=== PATIENT | female | born 1955 | race Caucasian/White ===

== ENCOUNTER 2016-10-19 20:51 | Inpatient (IN) | payer OTHER, MEDICARE ==
[~2016-10-19] VITALS: Ht 157.5 cm; Wt 81.8 kg
--- NOTE | 2016-10-19 20:56 | ED GI/GU/ABDOMINAL COMPLAINT ---
History of Present Illness General Chief Complaint: Abdominal Pain/Flank Pain Stated Complaint: BIBA ABD PAIN Source: patient, EMS Exam Limitations: HARD OF HEARING Vital Signs & Intake/Output Vital Signs & Intake/Output Vital Signs Date Time Temp Pulse Resp B/P Pulse O2 O2 Flow FiO2 Ox Delivery Rate 10/21 1641 98.6 108 15 135/78 99 Room Air 10/21 1432 102 18 110/70 10/21 1428 102 110/70 10/21 0805 98.6 98 18 142/80 96 Room Air 10/21 0800 Room Air ED Intake and Output 10/21 0000 10/20 1200 Intake Total 1061 2555 Output Total 400 750 Balance 661 1805 Intake, IV 1041 2555 Intake, Oral 20 Number 1 1 Bowel Movements Output, Urine 400 750 Patient 180 lb Weight (CHARLES MARK,PEDRO) Allergies Coded Allergies: acetaminophen (From Percocet) (UNKNOWN 10/19/16) ciprofloxacin (From Cipro) (UNKNOWN 10/19/16) diphenhydramine (From Benadryl) (UNKNOWN 10/19/16) loratadine (UNKNOWN 10/19/16) nitrofurantoin (UNKNOWN 10/19/16) oxycodone (From Percocet) (UNKNOWN 10/19/16) celecoxib (From Celebrex) (Intermediate, UPSET STOMACH 10/19/16) cimetidine (Intermediate, UPSET STOMACH 10/19/16) clarithromycin (Intermediate, UPSET STOMACH 10/19/16) cocaine (Intermediate, UPSET STOMACH 10/19/16) codeine (Intermediate, UPSET STOMACH 10/19/16) fluconazole (Intermediate, UPSET STOMACH 10/19/16) fluoxetine (From Prozac) (Intermediate, UPSET STOMACH 10/19/16) gabapentin (Intermediate, UPSET STOMACH 10/19/16) lansoprazole (Intermediate, UPSET STOMACH 10/19/16) mycophenolate mofetil (Intermediate, UPSET STOMACH 10/19/16) oxaprozin (From Daypro) (Intermediate, UPSET STOMACH 10/19/16) lorazepam (Mild, GI DISTRESS 10/20/16) Penicillins (UPSET STOMACH 10/19/16) buspirone (10/21/16) ranitidine (UPSET STOMACH 10/19/16) Reconcile Medications Famotidine (Pepcid) 40 MG TABLET 1 TAB PO DAILY GERD (Reported) Fenofibrate 160 MG TABLET 1 TAB PO DAILY HLD (Reported) Fluticasone Propionate 50 MCG/ACTUATION SPRAY.SUSP 2 SPRAY NASB DAILY as per (Reported) Folic Acid 1 MG TABLET 1 TAB PO DAILY SUPPLEMENT (Reported) Glipizide 5 MG TABLET 1 TAB PO BID diabetes (Reported) Insulin Detemir (Levemir Flextouch) 100 UNIT/ML (3 ML) INSULN.PEN 50 UNITS SC QPM DIABETES (Reported) Lisinopril 20 MG TABLET 1 TAB PO DAILY BP (Reported) Metformin HCl (Glucophage) 1,000 MG TABLET 1 TAB PO TID SUGAR (Reported) Triage Nurses Notes Reviewed? yes ? N Is pt currently ? No Onset: Abrupt Duration: day(s): (2) Timing: multiple episodes today Quality/Severity: severe Severity Numbers: 10 Activities at Onset: none Associated Symptoms: abdominal pain, nausea/vomiting HPI: This is a 61-year-old female history of diabetes and deafness who presents by EMS from home for chief complaint of 2 days worth of abdominal pain nausea vomiting and some liquid stool. Denies any chest pain, palpitation, cough or shortness of breath. No fever or chills. She reports not being able to tolerate any oral fluids or food. Past History Travel History Traveled to [place] past 21 day No Medical History Any Pertinent Medical History? see below for history Endocrine: diabetes Surgical History Surgical History: non-contributory Family History Hx Contributory? No Review of Systems Review of Systems Constitutional: Denies: chills, fever. EENTM: Reports: no symptoms. Respiratory: Denies: cough, short of breath, sputum production. Cardiovascular: Denies: chest pain, palpitations. GI: Reports: abdominal pain, nausea, vomiting. Genitourinary: Reports: no symptoms. Musculoskeletal: Reports: no symptoms. Skin: Reports: no symptoms. Neurological/Psychological: Reports: anxiety. Hematologic/Endocrine: Reports: polyuria. Denies: bruising, bleeding, polydipsia. Immunologic/Allergic: Denies: splenectomy. All Other Systems: Reviewed and Negative Physical Exam Physical Exam General Appearance: well developed/nourished, alert, awake, anxious, moderate distress Head: atraumatic, normal appearance Eyes: Bilateral: normal appearance, PERRL, EOMI. Ears, Nose, Throat, Mouth: moist mucous membrane, DEAF Neck: normal inspection, supple, full range of motion Respiratory: normal breath sounds, chest non-tender, no respiratory distress Cardiovascular: regular rate/rhythm Peripheral Pulses: 2+ radial (R), 2+ radial (L) Gastrointestinal: normal bowel sounds, soft, non-tender, NO REBOUND OR GUARDING Back: normal inspection, normal range of motion Extremities: normal range of motion Neurologic/Psych: no motor/sensory deficits, awake, alert, oriented x 3 Skin: intact, normal color, warm/dry Core Measures ACS in differential dx? No Severe Sepsis Present: No Septic Shock Present: No Progress Differential Diagnosis: DKA, HYPERGLYCEMIA, RADHA, ELECTROLYTE DISTURBANCE, SBO, GASTRITIS Plan of Care: Orders Procedure Date/time Status PHOSPHORUS 10/22 0600 Active MAGNESIUM 10/22 0600 Active GLUCOSE 10/22 0600 Active BASIC ELECTROLYTES PLUS BUN&CR 10/22 0600 Active Consistent Carbohydrate 3 10/21 D Active PHOSPHORUS 10/21 1800 Complete MAGNESIUM 10/21 1800 Complete GLUCOSE 10/21 1800 Complete BASIC ELECTROLYTES PLUS BUN&CR 10/21 1800 Complete Teach/Educate 10/21 0835 Active CULTURE,URINE 10/21 0746 Active Current Medications Sig/Herman Start time Last Medication Dose Stop Time Status Admin Acetaminophen 650 MG Q6P PRN 10/19 2330 AC (Tylenol) Heparin Sodium 5,000 UNIT Q8 10/19 2323 AC (Porcine) Laboratory Tests 10/21/16 1850: Anion Gap 14, Estimated GFR > 60, BUN/Creatinine Ratio 7.5, Glucose 226 H, Phosphorus 2.5, Magnesium 1.7 10/21/16 1120: Anion Gap 13, Estimated GFR > 60, BUN/Creatinine Ratio 10.0, Magnesium 1.8, CBC w Diff NO MAN DIFF REQ, RBC 3.86 L, MCV 92.4, MCH 30.7, RDW 13.7, MPV 9.1, Gran % 73.5, Lymphocytes % 17.6 L, Monocytes % 7.7, Eosinophils % 1.1, Basophils % 0.1, Absolute Granulocytes 6.4, Absolute Lymphocytes 1.5, Absolute Monocytes 0.7 H, Absolute Eosinophils 0.1, Absolute Basophils 0, PUBS MCHC 33.2 Microbiology 10/21 0900 URINE ROUT: Urine Culture - RECD IV FLUIDS BOLUS ORDERED, IV ZOFRAN ORDERED.. LABS, MIXED VENOUS ORDERED. REPEAT BOLUS, IV REGLAN ORDERED. POSITIVE ACETON, ELEVATED AG. IV INSULIN DRIP ORDERED. PATIENT ADMITTED TO ICU UNDER HOSPITALIST SERVICE. (CHARLES MARK,[place]) Initial ED EKG: SINUS TACHYCARDIA @112 BPM Rhythm Strip: sinus tachycardia Departure Departure Time of Disposition: 2235 Disposition: STILL A PATIENT Condition: Stable Clinical Impression Primary Impression: DKA (diabetic ketoacidoses) Referrals: ASHLEY TORRES MD (PCP/Family) Departure Forms: Customer Survey General Discharge Information Admission Note Documentation of Exam: Documentation of any treatments & extenuating circumstances including Concerns Regarding Discharge (functional status, medication knowledge or non-compliance, living conditions, etc.) that warrant an admission rather than observation: [IV FLUID RESUSSCITATION, INSULIN DRIP, MONITOR ELECTROLYTES, MONITOR I/O, ENDOCRINOLOGY CONSULTATION] Critical Care Note Critical Care Note Critical Care Time: 75-104 min
[2016-10-19 21:54] LABS: ABSOLUTE BASOPHIL COUNT 0 /CUMM (0.0-0.2); ABSOLUTE EOSINOPHIL COUNT 0 /CUMM (0.0-0.7); ABSOLUTE GRANULOCYTE CT 7.6 /CUMM (1.4-6.5); ABSOLUTE MONOCYTE COUNT 0.2 /CUMM (0.10-0.60); BASOPHIL % 0.2 % (0.0-2.0); EOSINOPHIL % 0.2 % (0-5); GRANULOCYTE % 85.6 % (42.2-75.2); HEMATOCRIT 37.4 % (37-47); MEAN CORPUSCULAR HGB 30.9 PG (27.0-31.0); MEAN CORPUSCULAR HGB CONC 33.5 G/DL (33.0-37.0); MEAN CORPUSCULAR VOLUME 92.2 FL (81.0-99.0); MEAN PLATELET VOLUME 8.7 FL (7.4-10.4); PLATELET COUNT 255 /CUMM (130-400); RBC DISTRIBUTION WIDTH 13.5 % (11.5-14.5); RED BLOOD CELL CT 4.05 /CUMM (4.20-5.40); WHITE BLOOD CELL COUNT 8.9 /CUMM (4.8-10.8)
--- NOTE | 2016-10-19 23:15 | Admission Certification ---
Admission Certification Certification Statement - As attending physician, I certify that at the time of - admission, based on clinical presentation, severity of - symptoms, need for further diagnostic testing and - therapeutic interventions, and risk of adverse outcomes - without in-hospital treatment, in my clinical assessment, - this patient requires an acute hospital stay for a minimum - of two nights or longer. I have also considered psychsocial - factors such as support system, advanced age, financial - issues, cognitive issues, and failed out-patient treatments, - past re-admission history, safety of patient, and lack of - compliance as applicable. Specific rationale supporting this admission is: Diabetic ketoacidosis requiring insulin drip and ICU level of care.
[2016-10-19] MEDS ORDERED: FENOFIBRATE160 M1 PO (23:19)
--- NOTE | 2016-10-19 23:19 | History & Physical ---
DENISE MARK,[facility] 10/19/16 5418: General Information and HPI MD Statement: I have seen and personally examined NILA GUZMAN and documented this H&P. The patient is a 61 year old F who presented with a patient stated chief complaint of [N/V dizziness and malaise]. Source of Information: patient, family, old records Exam Limitations: clinical condition, poor historian, Pt and are hard of hearing and read lips predominantly for communication. History of Present Illness: This is a 61 yo female with PMH of GERD, hyperlipidemia, T2 DM on insulin and metformin, congenital deafness, depression, chronic abdominal pain, who presents with CC of N/V and generalized malaise starting this AM. Pt is deaf and communicates predominantly through sign language; was in room and he communicates similarly. Pt was appreantly in normal health until this AM when she started having dizziness, nausea and vomiting. She denies any fever,CP, SOB, dysuria, or diarrhea. She endorses, N/V and dizziness. No change in daily routine and pt denies any sick contacts, recent travel, or change in dietary habits. Pt has significant surgical hx of r. breast lump s/p radiation, tumor removal of right hand, carpal tunnel, hx of laparascopy, breast biopsy, cystoscopy, laproscopic gallbladder and a benign l. breast biopsy. Pt has remote hx of smoking, denies any current smoking, no etoh or IVDA. Allergies/Medications Allergies: Coded Allergies: acetaminophen (From Percocet) (UNKNOWN 10/19/16) ciprofloxacin (From Cipro) (UNKNOWN 10/19/16) diphenhydramine (From Benadryl) (UNKNOWN 10/19/16) loratadine (UNKNOWN 10/19/16) lorazepam (UNKNOWN 10/19/16) nitrofurantoin (UNKNOWN 10/19/16) oxycodone (From Percocet) (UNKNOWN 10/19/16) celecoxib (From Celebrex) (Intermediate, UPSET STOMACH 10/19/16) cimetidine (Intermediate, UPSET STOMACH 10/19/16) clarithromycin (Intermediate, UPSET STOMACH 10/19/16) cocaine (Intermediate, UPSET STOMACH 10/19/16) codeine (Intermediate, UPSET STOMACH 10/19/16) fluconazole (Intermediate, UPSET STOMACH 10/19/16) fluoxetine (From Prozac) (Intermediate, UPSET STOMACH 10/19/16) gabapentin (Intermediate, UPSET STOMACH 10/19/16) lansoprazole (Intermediate, UPSET STOMACH 10/19/16) mycophenolate mofetil (Intermediate, UPSET STOMACH 10/19/16) oxaprozin (From Daypro) (Intermediate, UPSET STOMACH 10/19/16) Penicillins (UPSET STOMACH 10/19/16) ranitidine (UPSET STOMACH 10/19/16) Home Med list Famotidine (Pepcid) 40 MG TABLET 1 TAB PO DAILY GERD (Reported) Fenofibrate 160 MG TABLET 1 TAB PO DAILY HLD (Reported) Folic Acid 1 MG TABLET 1 TAB PO DAILY SUPPLEMENT (Reported) Insulin Detemir (Levemir Flextouch) 100 UNIT/ML (3 ML) INSULN.PEN 50 UNITS SC QPM DIABETES (Reported) Metformin HCl (Glucophage) 1,000 MG TABLET 1 TAB PO TID SUGAR (Reported) Compliance With Home Meds: UNKNOWN Past History Travel History Traveled to [place] past 21 day No Medical History Neurological: deafness EENT: hearing loss Gastrointestinal: chronic abdominal pain Hepatic: s/p cholecystectomy Psychiatric: anxiety, depression Endocrine: diabetes Surgical History Surgical History: breast biopsy, cholecystectomy, cystoscopy, carpal tunnel Past Family/Social History Psychosocial History Smoking Status: Former Smoker ETOH Use: denies use Illicit Drug Use: denies illicit drug use Functional Ability ADLs Independent: dressing, eating, toileting, bathing. Ambulation: independent IADLs Independent: shopping, housework, finances, food prep, telephone, transportation , medication admin. Review of Systems Review of Systems Constitutional: Reports: malaise, weakness. Denies: chills, diaphoresis. EENTM: Reports: no symptoms. Cardiovascular: Denies: chest pain, palpitations. Respiratory: Reports: no symptoms. GI: Reports: nausea, vomiting. Denies: abdominal pain. Genitourinary: Denies: hesitation. Musculoskeletal: Reports: no symptoms. Skin: Reports: no symptoms. Neurological/Psychological: Reports: anxiety. Exam & Diagnostic Data Last 24 Hrs of Vital Signs/I&O Vital Signs Date Time Temp Pulse Resp B/P Pulse O2 O2 Flow FiO2 Ox Delivery Rate 10/19 2320 97.8 115 18 118/66 97 Room Air 10/19 2115 98.4 115 18 124/76 98 Room Air 10/19 2101 Room Air Physical Exam General Appearance Alert, Oriented X3, Cooperative, Mild Distress Skin No Rashes, No Breakdown, No Significant Lesion Neck Supple, No JVD Cardiovascular Regular Rate, Normal S1, Normal S2, No Murmurs Lungs Normal Air Movement Abdomen Soft, No Tenderness Neurological Sensation Intact, Cranial Nerves 3-12 NL Last 24 Hrs of Labs/Luis: Laboratory Tests 10/19/162129: Anion Gap 21 H, Estimated GFR > 60, BUN/Creatinine Ratio 17.5, Glucose 357 H, Calcium 9.2, Total Bilirubin 0.7, AST 25, ALT 33, Alkaline Phosphatase 43, Troponin I < 0.01, Total Protein 7.3, Albumin 4.5, Globulin 2.8, Albumin/ Globulin Ratio 1.6, Lipase 79, CBC w Diff MAN DIFF ORDERED, RBC 4.05 L, MCV 92.2, MCH 30.9, RDW 13.5, MPV 8.7, Gran % 85.6 H, Lymphocytes % 11.3 L, Monocytes % 2.7, Eosinophils % 0.2, Basophils % 0.2, Absolute Granulocytes 7.6 H, Segmented Neutrophils 82 H, Band Neutrophils 2, Absolute Lymphocytes 1.0 L, Lymphocytes 12 L, Monocytes 4, Absolute Monocytes 0.2, Absolute Eosinophils 0, Absolute Basophils 0, Platelet Estimate ADEQUATE, Hypochromic-Microcytic 1+, Anisocytosis 1+, PUBS MCHC 33.5, Acetone Level POSITIVE AT 1:4 DIL 10/19/162124: Bicarbonate Actual 20 L, Mixed VBG pH 7.32, Mixed VBG pCO2 39 L, Mixed VBG O2 Saturation 26 L, Carboxyhemoglobin 1.1 L, O2 Concentration % RA, O2 Delivery Method RA 10/19/162114: Urine Color YEL, Urine Clarity CLEAR, Urine pH 6.0, Ur Specific [place] 1.020, Urine Protein NEG, Urine Ketones 40 H, Urine Nitrite NEG, Urine Bilirubin NEG, Urine Urobilinogen 0.2, Ur Leukocyte Esterase NEG, Ur Microscopic EXAM NOT REQUIRED, Urine Hemoglobin NEG, Urine Glucose >=1000 H 10/19/162057: Hemoglobin A1c Pending Assessment/Plan Assessment: This is a 61 yo female with PMH of T2 DM on insulin and metformin who came in w/ CC of N/V/malaise. She was found to have positive ketones, >1000 glucose in urine, +acetone and blood sugar of 350s; subsequently diagnosed with DKA. She is admitted to ICU for further workup. PLAN: 1. Anion gap metabolic acidosis 2/2 DKA: Pt came in with glucose 357, bicarb 20, and had positive ketones. Her gap measured at 21 on admission. VBG showed pH at 7.32. WBC 8.9 and afebrile. This is her first admission for DKA. She denies any recent sick contacts or recent illness herself. Her symptoms started this AM with N/V and dizziness. She states that she has been compliant with her medication regimen. She initially received 2L bolus in ER. Uclear at present what precipitated the DKA. * Admit to ICU * 1 more L bolus and then NS at 150cc/hr * Insulin drip at 4u/hr * labs q4 * qhr fingerstick * once blood sugar reaches 250 start D51/2NS with KCL at 150cc/hr * currently NPO * Zofran for nausea * Endocrine consult * a1c * cholesterol panel 2. Hyperlipidemia/GERD: Con't home reg. NPO FULLCODE CHEMICAL DVT PPX As Ranked By This Provider Problem List: 1. DKA (diabetic ketoacidoses) Core Measures/Miscellaneous Acute Coronary Syndrome ACS Diagnosis: No Cerebrovascular Accident CVA/TIA Diagnosis: No Congestive Heart Failure CHF Diagnosis: No Venous Thromboembolism VTE Risk Factors: Acute medical illness, Age > 40 VTE Prophylaxis Ordered Inpt: Pharm- Lovenox No Mech VTE prophylaxis d/t: No contraindications No VTE Pharm Prophylaxis d/t: No contraindications VTE Diagnosis: No VTE Type: NONE VTE Confirmed by (Test): NONE Severe Sepsis Severe Sepsis Present: No Septic Shock Septic Shock Present: No Miscellaneous Documentation Attending Case Discussed With: CONRADO POWELL MD Primary Care Physician: ASHLEY TORRES MD Patient sees these Specialists Dr. Hill Level of Patient Care: Critical Care (CRI) STIVEN MARK,MIRNA 10/19/16 3422: Resident Review Statement Resident Statement: examined this patient, discussed with international editorial producer Other Findings: 61-year-old lady with a history significant for congenital deafness, GERD, hyperlipidemia, insulin-dependent diabetes presented to the emergency room today with a chief complaint of nausea, abdominal pain of one days duration. States that has been difficult for her to hold anything down all day and had some bouts of vomiting. Denies missing her insulin dose, has never been admitted for diabetic ketoacidosis in the past. Her computer operations manager is Dr. Hill. Currently she is resting comfortably without any acute distress. Her CBC is benign Urinalysis positive for acetone Chemistry shows sodium 136, potassium of 5.3, chloride 96, bicarbonate 20, BUN 14, creatinine 0.8, anion gap 21, glucose 357, troponin is negative EKG unremarkable Assessment- 1. Diabetic ketoacidosis 2. Anion gap metabolic acidosis 3. History of GERD 4. History of triglyceridemia 5. History of congenital deafness Plan- ICU admit Accu-Cheks every hour Start insulin drip currently running at 4 units an hour ICU bundle every 4 hours Once the blood sugar falls below 250, will add dextrose and potassium to her fluids Endocrine consult Keep nothing by mouth for now IV Zofran for nausea Pain pathway DVT prophylaxis with subcutaneous heparin Full code ANDRE MARK, [facility] 10/20/16 0028: Attending MD Review Statement Attending Statement Attending MD Statement: examined this patient, discuss w/resident/PA/.NET ARCHITECT, agreed w/resident/PA/.NET ARCHITECT, discussed with family Attending Assessment/Plan: 61 yo F with h/o T2DM on insulin, depression, breast cancer s/p radiation and mastectomy, congenital deafness, gastritis, pw 2-day h/o nausea, vomiting and diffuse abdominal discomfort, with inability to anything down. Dizziness+. No sick contacts, denies fever/chills, cough, diarrhea or urinary symptoms. Denies eating outside food. Compliant with her levemir dose at bedtime. She was followed by Dr. Hill many years ago. Limited history obtained with the help of BRIDGET Syed who knows sign language. Vitals: stable except for tachycardia. Exam: AAO, communicates with sign language and lip reading. Tearful that her sugars are high. HEENT: dry mucous membranes, oropharynx clear, no erythema. Neck supple. Chest b/l clear, Heart S1S2 regular, Abd soft, diffuse tenderness, BS+. Extremities no edema. Labs: WBC 8.9, H/H 12.5/37.4, bands 2, Na 136, K 5.3, bicarb 20, AG 21, creat 0.8, glucose 357, trop neg, lipase neg. S. Osmolality pending. UA ketones positive and glucose >1000. S. Acetone positive. VB.32/39/36/20. EKG: Sinus tachycardia. 1. Diabetic ketoacidosis presenting with nausea, vomiting and abdominal discomfort. No obvious source of infection. No pancreatitis. ICU admit, accucheks Q1 hour, NPO, check HbA1c, normal saline 3 L bolus followed by maintenance fluids @ 150/hr, insulin drip titrate based on accucheks, ICU bundle every 4 hours, replete electrolytes magnesium, phosphorus. Once sugars < 250, change IV fluids to D5-1/2NS with KCL. Anti-emetics, IV PPI. Once AG closed and patient able to tolerate PO, will transition to subcut insulin. Endo consult ( discussed with Dr. Hill). Check urine tox screen. Hold metformin. 2. HLD. Continue fenofibrate. Check lipid panel. DVT ppx Hep SC. Full code. TTS > 35 mins
[2016-10-19] MEDS ORDERED: FOLIC ACID1 M1 PO (23:20)
[2016-10-19] MEDS ORDERED: GLUCOPHAGE1000 M1 PO (23:20)
[2016-10-19] MEDS ORDERED: PEPCID40 M1 PO (23:20)
[2016-10-19] MEDS ORDERED: LEVEMIR FL100 UNIT/1 SC (23:21)
[2016-10-20 01:00] VITALS: BP 128/80
--- NOTE | 2016-10-20 07:26 | Cons- CRCU ---
ADELA MARK,[facility] [place] 10/20/16 0726: General Information and HPI Consulting Request Date of Consult: 10/20/16 Source of Information: patient, family, old records Exam Limitations: poor historian, deafness History of Present Illness: 61 y/o F with PMHx of T2DM on insulin, congenital deafness and hypertriglyceridemia who presents with abdominal pain, nausea and vomiting x2 days. Of note patient is deaf and communicates via sign language and lip reading. Limited history is obtained via the help of her who is also deaf and communicates similarly. She denies fevers, chills, URI symptoms, diarrhea or urinary symptoms. She denies sick contacts or changes in dietary habits. She takes metformin 1000 mg PO TID and Levemir 50 units daily and reports compliance with her insulin. On initial presentation, vitals were within normal limits except for tachycardia with HR in the 110s. Physical exam was remarkable for anxiety, dry mucous membranes and diffuse abdominal tenderness. Labs were significant for Na 136, K 5.3, anion gap metabolic acidosis with bicarbonate 20 and anion gap 21 and glucose 357. Urine was positive for ketones, acetone and glucose > 1000. VBG revealed pH 7.32, pCO2 39 and bicarbonate 20, confirming the metabolic acidosis. Allergies/Medications Allergies: Coded Allergies: acetaminophen (From Percocet) (UNKNOWN 10/19/16) ciprofloxacin (From Cipro) (UNKNOWN 10/19/16) diphenhydramine (From Benadryl) (UNKNOWN 10/19/16) loratadine (UNKNOWN 10/19/16) nitrofurantoin (UNKNOWN 10/19/16) oxycodone (From Percocet) (UNKNOWN 10/19/16) celecoxib (From Celebrex) (Intermediate, UPSET STOMACH 10/19/16) cimetidine (Intermediate, UPSET STOMACH 10/19/16) clarithromycin (Intermediate, UPSET STOMACH 10/19/16) cocaine (Intermediate, UPSET STOMACH 10/19/16) codeine (Intermediate, UPSET STOMACH 10/19/16) fluconazole (Intermediate, UPSET STOMACH 10/19/16) fluoxetine (From Prozac) (Intermediate, UPSET STOMACH 10/19/16) gabapentin (Intermediate, UPSET STOMACH 10/19/16) lansoprazole (Intermediate, UPSET STOMACH 10/19/16) mycophenolate mofetil (Intermediate, UPSET STOMACH 10/19/16) oxaprozin (From Daypro) (Intermediate, UPSET STOMACH 10/19/16) lorazepam (Mild, GI DISTRESS 10/20/16) Penicillins (UPSET STOMACH 10/19/16) ranitidine (UPSET STOMACH 10/19/16) Home Med List: Famotidine (Pepcid) 40 MG TABLET 1 TAB PO DAILY GERD (Reported) Fenofibrate 160 MG TABLET 1 TAB PO DAILY HLD (Reported) Folic Acid 1 MG TABLET 1 TAB PO DAILY SUPPLEMENT (Reported) Insulin Detemir (Levemir Flextouch) 100 UNIT/ML (3 ML) INSULN.PEN 50 UNITS SC QPM DIABETES (Reported) Metformin HCl (Glucophage) 1,000 MG TABLET 1 TAB PO TID SUGAR (Reported) Current Medications: Current Medications Sig/Herman Start time Last Medication Dose Route Stop Time Status Admin Acetaminophen 650 MG Q6P PRN 10/19 2330 AC PO Heparin Sodium 5,000 UNIT Q8 10/19 2323 AC (Porcine) SC Insulin Aspart 0 Q4 10/20 1000 AC SC Insulin Detemir 10 UNITS BID 10/20 1000 AC SC Insulin Human Regular 100 UNIT ONCE ONE 10/19 2230 AC 10/19 Sodium Chloride 100 ML IV 10/20 222 2240 Magnesium Sulfate 1 GM ONCE ONE 10/20 0400 DC 10/20 N/A 1 UNIT IV 10/20 0559 0405 Magnesium Sulfate 1 GM ONCE ONE 10/20 0200 DC 10/20 N/A 1 UNIT IV 10/20 0359 0243 Metoclopramide HCl 0 .STK-MED ONE 10/19 2221 DC .ROUTE Metoclopramide HCl 10 MG ONCE ONE 10/19 2215 DC 10/19 IV 10/19 Ondansetron HCl 4 MG Q6P PRN 10/19 2330 AC 10/20 IV 0740 Ondansetron HCl 0 .STK-MED ONE 10/19 2105 DC .ROUTE Ondansetron HCl 4 MG ONCE ONE 10/19 2100 DC 10/19 IV 10/19 2100 2100 Pantoprazole Sodium 40 MG DAILY 10/20 0030 AC IV Potassium Chloride 20 MEQ Q8H 10/20 0615 AC 10/20 Dextrose/Sodium 1,000 ML IV 0837 Chloride Potassium Chloride 40 MEQ Q8H 10/20 0415 DC 10/20 Dextrose/Sodium 1,000 ML IV 0719 Chloride Sodium Chloride 1,000 ML BOLUS ONE 10/19 2330 DC 10/19 IV 10/20 0029 2332 Sodium Chloride 1,000 ML BOLUS ONE 10/19 2330 DC 10/20 IV 10/20 0029 0043 Sodium Chloride 1,000 ML Q6H 10/19 2330 DC 10/20 IV 0045 Sodium Chloride 1,000 ML BOLUS ONE 10/19 2200 DC 10/19 IV 10/19 225 2200 Sodium Chloride 1,000 ML BOLUS ONE 10/19 2100 DC 10/19 IV 10/19 215 2100 Review of Systems Review of Systems Constitutional: Denies: chills, fever. EENTM: Reports: see HPI (congenital deafness). Cardiovascular: Denies: chest pain. Respiratory: Denies: cough. GI: Reports: abdominal pain, nausea, vomiting. Denies: diarrhea. Genitourinary: Reports: no symptoms. Musculoskeletal: Reports: no symptoms. Skin: Reports: no symptoms. Neurological/Psychological: Reports: anxiety. Hematologic/Endocrine: Reports: no symptoms. Immunologic/Allergic: Reports: no symptoms. Past History Travel History Traveled to [place] past 21 day No Medical History Blood Transfusion Hx: No Neurological: deafness EENT: CONGENITAL DEAFNESS Cardiovascular: TRIGLYCERIDEMIA Gastrointestinal: GERD, chronic abdominal pain Hepatic: s/p cholecystectomy Psychiatric: anxiety, depression Endocrine: diabetes Surgical History Surgical History: breast biopsy, cholecystectomy, cystoscopy, carpal tunnel Psychosocial History Where Do You Live? Home Services at Home: HOME PHONE-VIDEO PHONE [phone] [employer] Smoking Status: Former Smoker ETOH Use: denies use Illicit Drug Use: denies illicit drug use Functional Ability ADLs Independent: dressing, eating, toileting, bathing. Ambulation: independent IADLs Independent: shopping, housework, finances, food prep, telephone, transportation , medication admin. Exam & Diagnostic Data Last 24 Hrs of Vital Signs/I&O Vital Signs Date Time Temp Pulse Resp B/P Pulse O2 O2 Flow FiO2 Ox Delivery Rate 10/20 0800 97.7 98 18 122/86 95 Room Air Room Air 10/20 0400 98 Room Air 10/20 0100 98 Room Air 10/20 0100 98.3 116 30 128/80 98 Room Air 10/190 97.8 115 18 118/66 97 Room Air 10/19 2115 98.4 115 18 124/76 98 Room Air 10/19 210 Room Air Intake & Output 10/20 1600 10/20 0800 10/20 0000 Intake Total 2555 2000 Output Total 750 Balance 1805 2000 Intake, IV 2555 1999 Number 1 Bowel Movements Output, Urine 750 Patient 81.788 kg 77.111 kg Weight Physical Exam General Appearance: well developed/nourished, anxious Head: atraumatic, normal appearance Eyes: Bilateral: normal appearance. Ears, Nose, Throat: moist mucus membranes Neck: supple Respiratory: lungs clear Cardiovascular: tachycardia, regular S1 and S2 Gastrointestinal: soft, non-tender, positive bowel sounds Extremities: no edema Neurologic/Psych: awake, alert, oriented x 3 Cranial Nerves: grossly normal Skin: normal color, warm/dry Last 48 Hrs of Labs/Luis: Laboratory Tests 10/20/16 0920: Anion Gap 12, Estimated GFR > 60, Glucose 225 H, Calcium 8.1 L, Phosphorus 2.4 L, Magnesium 1.8, Total Bilirubin 0.5, AST 18, ALT 31, Albumin 3.7 10/20/16 0406: Troponin I Cancelled 10/20/16 0400: Triglycerides 170 H, Cholesterol 151, LDL Cholesterol, Calc 65, HDL Cholesterol 52, Cholesterol/HDL Ratio 3 10/20/16 0400: Anion Gap 11, Estimated GFR > 60, Glucose 194 H, Calcium 7.9 L, Phosphorus 2.7 , Magnesium 1.5 L, Total Bilirubin 0.4, AST 19, ALT 30, Troponin I < 0.01, Albumin 3.6, LISA Antibody Pending 10/20/16 0009: Anion Gap 18 H, Estimated GFR > 60, Glucose 290 H, Calcium 8.3 L, Phosphorus 3.2, Magnesium 1.1 L, Total Bilirubin 0.6, AST 24, ALT 27, Albumin 4.1 10/19/16 2130: Anion Gap 21 H, Estimated GFR > 60, BUN/Creatinine Ratio 17.5, Glucose 357 H, Serum Osmolality 309 H, Calcium 9.2, Total Bilirubin 0.7, AST 25, ALT 33, Alkaline Phosphatase 43, Troponin I < 0.01, Total Protein 7.3, Albumin 4.5, Globulin 2.8, Albumin/Globulin Ratio 1.6, Lipase 79, CBC w Diff MAN DIFF ORDERED , RBC 4.05 L, MCV 92.2, MCH 30.9, RDW 13.5, MPV 8.7, Gran % 85.6 H, Lymphocytes % 11.3 L, Monocytes % 2.7, Eosinophils % 0.2, Basophils % 0.2, Absolute Granulocytes 7.6 H, Segmented Neutrophils 82 H, Band Neutrophils 2, Absolute Lymphocytes 1.0 L, Lymphocytes 12 L, Monocytes 4, Absolute Monocytes 0.2, Absolute Eosinophils 0, Absolute Basophils 0, Platelet Estimate ADEQUATE, Hypochromic-Microcytic 1+, Anisocytosis 1+, PUBS MCHC 33.5, Acetone Level POSITIVE AT 1:4 DIL 10/19/162124: Bicarbonate Actual 20 L, Mixed VBG pH 7.32, Mixed VBG pCO2 39 L, Mixed VBG O2 Saturation 26 L, Carboxyhemoglobin 1.1 L, O2 Concentration % RA, O2 Delivery Method RA 10/19/162114: Urine Color YEL, Urine Clarity CLEAR, Urine pH 6.0, Ur Specific [place] 1.020, Urine Protein NEG, Urine Ketones 40 H, Urine Nitrite NEG, Urine Bilirubin NEG, Urine Urobilinogen 0.2, Ur Leukocyte Esterase NEG, Ur Microscopic EXAM NOT REQUIRED, Urine Hemoglobin NEG, Urine Glucose >=1000 H 10/19/162057: Hemoglobin A1c Pending Diagnostic Data EKG Results Sinus tachycardia Assessment/Plan Impression/Plan: 61 y/o F with PMHx of T2DM on insulin, congenital deafness and hypertriglyceridemia who presents with DKA. Respiratory: Stable. Satting well on room air without shortness of breath. Infectious Disease: Afebrile and without leukocytosis. No obvious source of infection. Viral gastroenteritis is a possibility in the presence of abdominal symptoms. * Check CXR PA/Lateral to rule out pneumonia. * Monitor off antibiotics. Cardiovascular: #HLD: Lipid panel on admission remarkable for elevated triglycerides (170). Total cholesterol, HDL and LDL are within normal limits on admission. * Continue prior to admission fenofibrate. Hematology: H/H within normal limits. No issues. Metabolic: #DKA: Presented with nausea, vomiting and abdominal pain. Treated with insulin drip overnight with closure of anion gap and improvement of glucose to 200s. No obvious trigger identified for the DKA. CT Abdomen/Pelvis W/ IV Contrast unremarkable except for questionable mild wall thickening of the ascending colon. Insulin drip was discontinued and patient was converted to subcutaneous insulin. Patient was initially started on Levemir 10 units BID and Novolog SSI Q4H. Levemir was later increased to 14 units BID and sliding scale was uptitrated as blood sugars remained in the 300s. * Endocrinology following. Appreciate their recs. * Continue 20 mEq of KCl in D51/2 NS @ 125 cc/hr. * GI consulted to rule out intraabdominal pathology. Appreciate their recs. * Continue Levemir 14 units BID and Novolog SSI Q4H as follows: for glucose <150 give no insulin, 151-200 give 4 units, 201-250 give 6 units, 251-300 give 8 units, 301-350 give 10 units and 351-400 give 12 units. * HbA1c pending. * Anti-LISA ordered to evaluate for T1DM. * OK to downgrade to General Medicine. Alimentary: NPO * Advance diet as tolerated. Neurologic: AAO x3. No issues. DVT PPx: HSQ and ALPs CODE: FULL Problem List: 1. DKA (diabetic ketoacidoses) 2. T2DM (type 2 diabetes mellitus) 3. IDDM (insulin dependent diabetes mellitus) 4. Hypertriglyceridemia Consult Acknowledgment - Thank you for your consult request. BELKIS MARK,[facility] 10/20/16 0823: General Information and HPI Consulting Request Date of Consult: 10/20/16 Requested By: Dr. Allison Reason for Consult: DKA, ICU management Source of Information: patient, old records Exam Limitations: poor historian Assessment/Plan Other Findings/Comments: I have personally seen and examined the patient and agree with the resident's assessment and plan as above. Briefly, the patient is a 61-year-old female with a history of type 2 diabetes, history of breast cancer status post right breast radiation and tumor removal, pulmonary nodules, GERD, hyperlipidemia, congenital deafness, chronic abdominal pain, and depression. The patient was admitted last evening with complaints of generalized malaise and worsening abdominal pain. On admission, the patient was found to have significant nausea, vomiting, elevated blood sugar. She was started on an insulin drip for possible DKA. Her anion gap has improved from 21 to 11. She continues to complain of abdominal discomfort and nausea. Impression: 1. Nausea, vomiting and increased abdominal discomfort rule out etiology. 2. Elevated anion gap and blood sugar, now improved. 3. Congenital deafness - the patient communicates by sign language. 4. History of pulmonary nodules, last CT scan was in July 2016. 5. History of reflux disease. 6. History of breast cancer. Plan: * Will switch to subcutaneous insulin as recommended by endocrine. * Continue D5 half normal saline 20 mEq KCl at 125 ML per hour. * Check an anti-lias antibody and hemoglobin A1c. * Check a PA and lateral chest x-ray. * Check a CT scan of the abdomen and pelvis with contrast. * Continue DVT prophylaxis. * Will downgrade to Gen Med once the patient is stable and off the insulin drip. Consult Acknowledgment - Thank you for your consult request.
--- NOTE | 2016-10-20 07:58 | Cons- Endocrinology ---
General Information and HPI Consulting Request Date of Consult: 10/20/16 Requested By: medical team Reason for Consult: Uncontrolled diabetes Source of Information: patient, old records Exam Limitations: deafness History of Present Illness: This 61-year-old woman apparently has a history of diabetes mellitus type 2. She is treated with metformin 1000 mg 3 times a day and Levemir 50 units daily.. She developed nausea vomiting and abdominal discomfort on the day of admission. She eventually came to the emergency room. Her initial labs showed glucose 357 sodium 136 potassium 5.3 CO2 20 anion gap 21 acetone and +1-4. Liver function tests were normal. The patient has been treated with an insulin drip overnight and is presently on 2 units of insulin per hour. Her labs have improved with glucose 194 CO2 22 anion gap normal at 11. However the patient still complains of abdominal discomfort and nausea and vomiting. Allergies/Medications Allergies: Coded Allergies: acetaminophen (From Percocet) (UNKNOWN 01/12/17) ciprofloxacin (From Cipro) (UNKNOWN 01/12/17) diphenhydramine (From Benadryl) (UNKNOWN 01/12/17) loratadine (UNKNOWN 01/12/17) nitrofurantoin (UNKNOWN 01/12/17) oxycodone (From Percocet) (UNKNOWN 01/12/17) rabeprazole (From ACIPHEX) (UNKNOWN 01/12/17) risedronate sodium (From ACTONEL) (UNKNOWN 01/12/17) celecoxib (From Celebrex) (Intermediate, UPSET STOMACH 01/12/17) cimetidine (Intermediate, UPSET STOMACH 01/12/17) clarithromycin (Intermediate, UPSET STOMACH 01/12/17) codeine (Intermediate, UPSET STOMACH 01/12/17) fluconazole (Intermediate, UPSET STOMACH 01/12/17) fluoxetine (From Prozac) (Intermediate, UPSET STOMACH 01/12/17) gabapentin (Intermediate, UPSET STOMACH 01/12/17) lansoprazole (Intermediate, UPSET STOMACH 01/12/17) mycophenolate mofetil (Intermediate, UPSET STOMACH 01/12/17) oxaprozin (From Daypro) (Intermediate, UPSET STOMACH 01/12/17) lorazepam (Mild, GI DISTRESS 01/12/17) Penicillins (UPSET STOMACH 01/12/17) buspirone (UNKNOWN 01/12/17) ranitidine (UPSET STOMACH 01/12/17) Home Med List: Alprazolam (Xanax) 1 MG TABLET 1 TAB PO Q6P PRN anxiety Clotrimazole/Betamethasone Dip (Clotrimazole-Betamethasone Crm) 1 %-0.05 % CREAM..G. 1 BARON TOP AD AFFECTED AREA (Reported) apply to affected area(s) Fenofibrate 160 MG TABLET 1 TAB PO DAILY HLD (Reported) Fluticasone Propionate 50 MCG/ACTUATION SPRAY.SUSP 2 SPRAY NASB DAILY as per (Reported) Insulin Detemir (Levemir) 100 UNIT/ML VIAL 22 UNITS SC BID DM (Reported) Lisinopril 10 MG TABLET 1 TAB PO DAILY BP (Reported) Metformin HCl 1,000 MG TABLET 1 TAB PO BID DM (Reported) Quetiapine Fumarate (Seroquel XR) 50 MG TAB.ER.24H 1 TAB PO QPM MENTAL HEALTH (Reported) Sodium Chloride ([place] Sea) 0.65 % SPRAY 2 SPRAY NENA Q4 Epistaxis Terconazole (Terazol 7) (Unknown Strength) CREAM.APPL (Unknown Dose) VG AD GYNO (Reported) Review of Systems Review of Systems Constitutional: Reports: malaise. Cardiovascular: Denies: chest pain. Respiratory: Denies: short of breath. GI: Reports: abdominal pain, nausea, vomiting. Genitourinary: Denies: dysuria. Skin: Reports: no symptoms. Past History Travel History Traveled to [place] past 21 day No Medical History Blood Transfusion Hx: No Neurological: deafness EENT: CONGENITAL DEAFNESS Cardiovascular: TRIGLYCERIDEMIA Gastrointestinal: GERD, chronic abdominal pain Hepatic: s/p cholecystectomy Psychiatric: anxiety, depression Endocrine: diabetes Surgical History Surgical History: breast biopsy, cholecystectomy, cystoscopy, carpal tunnel Psychosocial History Where Do You Live? Home Services at Home: HOME PHONE-VIDEO PHONE [phone] [employer] Smoking Status: Former Smoker ETOH Use: denies use Illicit Drug Use: denies illicit drug use Functional Ability ADLs Independent: dressing, eating, toileting, bathing. Ambulation: independent IADLs Independent: shopping, housework, finances, food prep, telephone, transportation , medication admin. Exam & Diagnostic Data Last 24 Hrs of Vital Signs/I&O Vital Signs Date Time Temp Pulse Resp B/P Pulse O2 O2 Flow FiO2 Ox Delivery Rate 10/20 0100 98 Room Air 10/20 010 98.3 116 30 128/80 98 Room Air 10/19 2319 97.8 115 18 118/66 97 Room Air 10/19 2115 98.4 115 18 124/76 98 Room Air 10/19 2101 Room Air Intake & Output 10/20 1600 10/20 0800 10/20 0000 Intake Total 1000 1999 Output Total Balance 1000 1999 Intake, IV 1000 1999 Patient 180 lb 170 lb Weight Vital Signs Date Time Temp Pulse Resp B/P Pulse O2 O2 Flow FiO2 Ox Delivery Rate 10/20 010 98 Room Air 10/20 010 98.3 116 30 128/80 98 Room Air 10/19 2319 97.8 115 18 118/66 97 Room Air 10/19 2115 98.4 115 18 124/76 98 Room Air 10/19 2101 Room Air Intake & Output 10/20 1600 10/20 0800 10/20 0000 Intake Total 1000 1999 Output Total Balance 1000 1999 Intake, IV 1000 1999 Patient 180 lb 170 lb Weight Physical Exam General Appearance: alert, awake, anxious Head: normal appearance Eyes: Bilateral: normal appearance. Neck: normal inspection Respiratory: normal breath sounds Cardiovascular: tachycardia Gastrointestinal: normal bowel sounds, soft Extremities: normal inspection Labs/Luis Results: Laboratory Tests 10/20 10/20 10/20 10/20 0406 0400 0400 0009 Chemistry Sodium (137 - 145 mmol/L) 137 136 L Potassium (3.5 - 5.1 mmol/L) 4.3 4.8 Chloride (98 - 107 mmol/L) 104 102 Carbon Dioxide (22 - 30 mmol/L) 22 17 L Anion Gap (5 - 16) 11 18 H BUN (7 - 17 mg/dL) 10 12 Creatinine (0.5 - 1.0 mg/dL) 0.7 0.7 Estimated GFR (>60 ml/min) > 60 > 60 Glucose (65 - 99 mg/dL) 194 H 290 H Calcium (8.4 - 10.2 mg/dL) 7.9 L 8.3 L Phosphorus (2.5 - 4.5 mg/dL) 2.7 3.2 Magnesium (1.6 - 2.3 mg/dL) 1.5 L 1.1 L Total Bilirubin (0.2 - 1.3 mg/dL) 0.4 0.6 AST (14 - 36 U/L) 19 24 ALT (9 - 52 U/L) 30 27 Troponin I (< 0.11 ng/ml) Cancelled < 0.01 Albumin (3.5 - 5.0 g/dL) 3.6 4.1 Triglycerides (<150 mg/dL) 170 H Cholesterol (<200 MG/DL) 151 LDL Cholesterol, Calc (65 - 129 mg/dL) 65 HDL Cholesterol (40 - 60 mg/dL) 52 Cholesterol/HDL Ratio (0.00 - 4.23 %) 3 10/190 5 Blood Gas Bicarbonate Actual (22 - 26 MEQ/L) 20 L Mixed VBG pH (7.31 - 7.41 PH) 7.32 Mixed VBG pCO2 (41 - 51 TORR) 39 L Mixed VBG O2 Saturation (35 - 45 TORR) 26 L Carboxyhemoglobin (1.5 - 5.0 %) 1.1 L O2 Concentration % RA O2 Delivery Method RA Chemistry Sodium (137 - 145 mmol/L) 136 L Potassium (3.5 - 5.1 mmol/L) 5.3 H Chloride (98 - 107 mmol/L) 96 L Carbon Dioxide (22 - 30 mmol/L) 20 L Anion Gap (5 - 16) 21 H BUN (7 - 17 mg/dL) 14 Creatinine (0.5 - 1.0 mg/dL) 0.8 Estimated GFR (>60 ml/min) > 60 BUN/Creatinine Ratio (7 - 25 %) 17.5 Glucose (65 - 99 mg/dL) 357 H Serum Osmolality (285 - 295 MOSM/KG) 309 H Calcium (8.4 - 10.2 mg/dL) 9.2 Total Bilirubin (0.2 - 1.3 mg/dL) 0.7 AST (14 - 36 U/L) 25 ALT (9 - 52 U/L) 33 Alkaline Phosphatase (<127 U/L) 43 Troponin I (< 0.11 ng/ml) < 0.01 Total Protein (6.3 - 8.2 g/dL) 7.3 Albumin (3.5 - 5.0 g/dL) 4.5 Globulin (1.9 - 4.2 gm/dL) 2.8 Albumin/Globulin Ratio (1.1 - 2.2 %) 1.6 Lipase (23 - 300 U/L) 79 Hematology CBC w Diff MAN DIFF ORDERED WBC (4.8 - 10.8 /CUMM) 8.9 RBC (4.20 - 5.40 /CUMM) 4.05 L Hgb (12.0 - 16.0 G/DL) 12.5 Hct (37 - 47 %) 37.4 MCV (81.0 - 99.0 FL) 92.2 MCH (27.0 - 31.0 PG) 30.9 RDW (11.5 - 14.5 %) 13.5 Plt Count (130 - 400 /CUMM) 255 MPV (7.4 - 10.4 FL) 8.7 Gran % (42.2 - 75.2 %) 85.6 H Lymphocytes % (20.5 - 51.1 %) 11.3 L Monocytes % (1.7 - 9.3 %) 2.7 Eosinophils % (0 - 5 %) 0.2 Basophils % (0.0 - 2.0 %) 0.2 Absolute Granulocytes (1.4 - 6.5 /CUMM) 7.6 H Segmented Neutrophils (42.2 - 75.2 %) 82 H Band Neutrophils (0.0 - 5.0 %) 2 Absolute Lymphocytes (1.2 - 3.4 /CUMM) 1.0 L Lymphocytes (20.5 - 51.1 %) 12 L Monocytes (1.7 - 9.3 %) 4 Absolute Monocytes (0.10 - 0.60 /CUMM) 0.2 Absolute Eosinophils (0.0 - 0.7 /CUMM) 0 Absolute Basophils (0.0 - 0.2 /CUMM) 0 Platelet Estimate (ADEQUATE) ADEQUATE Hypochromic-Microcytic 1+ Anisocytosis 1+ PUBS MCHC (33.0 - 37.0 G/DL) 33.5 Toxicology Acetone Level (NEGATIVE) POSITIVE AT 1:4 DIL 10/19 Chemistry Hemoglobin A1c Pending Urines Urine Color (YEL,AMB,STR) YEL Urine Clarity (CLEAR) CLEAR Urine pH (5.0 - 8.0) 6.0 Ur Specific [place] (1.001 - 1.035) 1.020 Urine Protein (NEG,<30 MG/DL) NEG Urine Ketones (NEG) 40 H Urine Nitrite (NEG) NEG Urine Bilirubin (NEG) NEG Urine Urobilinogen (0.1 - 1.0 EU/dl) 0.2 Ur Leukocyte Esterase (NEG) NEG Ur Microscopic EXAM NOT REQUIRED Urine Hemoglobin (NEG) NEG Urine Glucose (N MG/DL) >=1000 H Assessment/Plan Assessment/Plan This 61-year-old woman with a known history of diabetes presents with nausea vomiting and abdominal discomfort. Her sugar was out of control on admission with a high glucose, positive anion gap, and serum acetone positive in the 1-4 dilution. Despite correction of ketosis and improvement in her blood sugar she still has nausea vomiting and abdominal pain. I would recommend that we obtain some imaging of her abdomen at this time since her symptoms have not improved despite the metabolic improvement. The patient at this time can be switched to subcutaneous insulin. We should continue D5 half-normal saline with 20 mEq KCl at 125 mL/h. We can begin Levemir 10 units twice a day the first dose stat. We can also begin sliding scale NovoLog every 4 hours. NovoLog every 4 hours while on IV fluids containing glucose should be less than 150 give no insulin, 151-200 give 4 units NovoLog, to 201-250 give 5 units NovoLog, 251-300 give 6 units NovoLog, 301-350 give 7 units NovoLog, 351-400 give 8 units NovoLog. One hour after the first dose of NovoLog and Levemir we can discontinue the insulin drip. We should measure the patient's anti-LISA antibody and also her hemoglobin A1c Consult Acknowledgment - Thank you for your consult request.
[2016-10-20 08:00] VITALS: BP 122/86
--- NOTE | 2016-10-20 14:44 | CT SCAN REPORT ---
EXAMINATION: CT ABDOMEN AND PELVIS WITH CONTRAST CLINICAL INFORMATION: Abdominal pain, nausea and vomiting. COMPARISON: 09/22/2006 TECHNIQUE: Multidetector volumetric imaging was performed of the abdomen and pelvis before and after the IV administration of 95 mL of Optiray 320 intravenous contrast. Sagittal and coronal reformatted images were obtained on the technologist's workstation. DLP: 780 mGy-cm FINDINGS: LUNG BASES: Linear scarring at the right lung base. LIVER, GALLBLADDER, AND BILIARY TREE: Mild diffuse fatty infiltration of the liver. The gallbladder has been removed. PANCREAS: Unremarkable. SPLEEN: Unremarkable. ADRENAL GLANDS: There is a 1.1 cm nodule of the left adrenal gland which measured 0.7 cm on the previous study. This is indeterminate although given the density measurements, does not represent a lipid-rich adenoma. KIDNEYS AND URETERS: The kidneys are normal in size, shape, and attenuation. No hydronephrosis, hydroureter, or calculi seen. Bilateral perinephric stranding which appears symmetric and is nonspecific. BLADDER: Unremarkable. GASTROINTESTINAL TRACT: Mild wall thickening of the ascending colon which may be accentuated by lack of distention. Otherwise unremarkable with no evidence of obstruction. ABDOMINAL WALL: No significant hernia is appreciated. LYMPH NODES: Normal. VASCULAR: There are atherosclerotic calcifications of the distal abdominal aorta. No aneurysmal dilatation. PELVIC VISCERA: Unremarkable. OSSEOUS STRUCTURES: Unremarkable. IMPRESSION: Questionable mild wall thickening of the ascending colon which may be accentuated by lack of distention. There is a 1.1 cm left adrenal nodule which measured 0.7 cm on the 2006 study. This is stable since the chest CT dated 07/29/2016. There is bilateral perinephric stranding which appears symmetric and is nonspecific. No hydronephrosis. Mild diffuse fatty infiltration of the liver.
[2016-10-20 16:00] VITALS: BP 120/74
--- NOTE | 2016-10-20 22:00 | RADIOLOGY REPORT ---
EXAMINATION: XR CHEST CLINICAL INFORMATION: Diabetic ketoacidosis. COMPARISON: None recent. TECHNIQUE: AP and lateral semierect view of the chest. FINDINGS: The heart is normal in size. There is no evidence of acute pulmonary parenchymal or pleural disease. There is calcific tendinitis involving the right shoulder. IMPRESSION: No acute disease in the chest.
--- NOTE | 2016-10-21 06:56 | PN- Housestaff ---
CANDY MARK,TIFFANIE 10/21/16 0655: Subjective Follow-up For: abdominal pain Subjective: Pt continues to have abdominal pain (sometimes localized to one area - nonspecific, sometimes all over). She was nauseous with dry heaving all night. Zofran did not really help, changed to reglan. Pt has not been taking alprazolam although it was listed on her med rec. She is still not eating consistently, had 0% of her lunch and 50% of her breakfast. IVF has been decreased from 125 ml to 100 ml/hr. She is very sensitive to touch. She reports that she has not slept in 3 days. She complains of her eyes feeling dry and hurting in the corners, feeling like she has to pick something out. Review of Systems Constitutional: Denies: chills, fever. EENTM: Reports: eye pain. Cardiovascular: Denies: chest pain. Respiratory: Denies: cough, short of breath. Gastrointestinal: Reports: abdominal pain, nausea. Denies: bloating, vomiting. Objective Last 24 Hrs of Vital Signs/I&O Vital Signs Date Time Temp Pulse Resp B/P Pulse O2 O2 Flow FiO2 Ox Delivery Rate 10/21 1432 102 18 110/70 10/21 1428 102 110/70 10/21 0805 98.6 98 18 142/80 96 Room Air 10/21 0800 Room Air 10/20 1600 97.8 98 20 120/74 96 Room Air Intake & Output 10/21 1600 10/21 0800 10/21 0000 Intake Total 1417.5 500 55 Output Total 550 900 0 Balance 867.5 -400 55 Intake, IV 967.5 300 35 Intake, Oral 450 200 20 Number 1 Bowel Movements Output, Urine 550 900 0 Patient 81.788 kg Weight Physical Exam General Appearance: Alert, Oriented X3, Cooperative, dry heaving , pt deaf, can read lips Skin: No Significant Lesion HEENT: Atraumatic, no obvious abrasions. Cardiovascular: Regular Rate, Normal S1, Normal S2 Lungs: Clear to Auscultation, Normal Air Movement Abdomen: ?tenderness , pt sensitive to touch Neurological: Normal Speech Extremities: No Edema Current Medications: Current Medications Sig/Herman Start time Last Medication Dose Route Stop Time Status Admin Acetaminophen 650 MG Q6P PRN 10/19 2330 AC PO Alprazolam 1 MG TID PRN 10/21 1130 DC PO 10/28 1129 Alprazolam 1 MG ONCE ONE 10/21 0130 DC 10/21 PO 10/21 0131 0231 Alprazolam 1 MG FOUR TIMES A DAY 10/20 1800 CAN PO 10/27 1759 Fenofibrate 145 MG DAILY 10/20 1818 AC 10/21 PO 0915 Fluticasone 2 SPRAY DAILY 10/21 1324 AC 10/21 Propionate NENA 1427 Heparin Sodium 5,000 UNIT Q8 10/19 2323 AC (Porcine) SC Insulin Aspart 0 Q4 10/20 1000 AC 10/21 SC 1422 Insulin Detemir 14 UNITS BID 10/20 2200 AC 10/21 SC 0915 Lisinopril 20 MG DAILY 10/21 1325 AC 10/21 PO 1428 Lorazepam 1 MG Q4P PRN 10/20 1700 DC 10/21 IV 0752 Magnesium Oxide 400 MG ONE ONE 10/20 1630 DC PO 10/20 1631 Melatonin 5 MG AT BEDTIME 10/21 2200 AC PO Metoclopramide HCl 10 MG Q6P PRN 10/21 1445 AC IV Ondansetron HCl 4 MG .STK-MED ONE 10/20 2047 DC IM 10/20 2048 Ondansetron HCl 4 MG Q6P PRN 10/19 2330 DC 10/21 IV 1030 Pantoprazole Sodium 40 MG DAILY 10/20 0030 AC 10/21 IV 0915 Patient Medication 1 ED .STK-MED ONE 10/21 1416 DC Teaching ED 10/21 1417 Phosphate 250 MG ONCE ONE 10/20 1645 DC PO 10/20 1646 Potassium Chloride 20 MEQ Q8H 10/20 0615 AC 10/21 Dextrose/Sodium 1,000 ML IV 1032 Chloride Trimethobenzamide HCl 200 MG 4 TIMES/DAY PRN 10/20 1455 AC IM Last 24 Hrs of Lab/Luis Results Last 24 Hrs of Labs/Mics: Laboratory Tests 10/21/16 1120: Anion Gap 13, Estimated GFR > 60, BUN/Creatinine Ratio 10.0, Magnesium 1.8, CBC w Diff NO MAN DIFF REQ, RBC 3.86 L, MCV 92.4, MCH 30.7, RDW 13.7, MPV 9.1, Gran % 73.5, Lymphocytes % 17.6 L, Monocytes % 7.7, Eosinophils % 1.1, Basophils % 0.1, Absolute Granulocytes 6.4, Absolute Lymphocytes 1.5, Absolute Monocytes 0.7 H, Absolute Eosinophils 0.1, Absolute Basophils 0, PUBS MCHC 33.2 Microbiology 10/21 0900 URINE ROUT: Urine Culture - RECD Assessment/Plan Assessment: 61 y/o F with PMHx of T2DM on insulin, congenital deafness and hypertriglyceridemia who presents with abdominal pain, nausea and vomiting x2 days. Pt was admitted to ICU for insulin drip, subsequently transferred to for persistent abdominal pain despite closed AG, and better controlled sugar. Problem List: # DKA # Viral gastroenteritis vs Gastroparesis vs gastric ulcer - Presented with nausea, vomiting and abdominal pain. Came in with glucose 357, bicarb 20, and had positive ketones. Her gap measured at 21 on admission. VBG showed pH at 7.32. WBC 8.9 and afebrile.Treated with insulin drip overnight with closure of anion gap and improvement of glucose to 200s. Insulin drip was discontinued and patient was converted to subcutaneous insulin. - No obvious trigger identified for the DKA. - CT Abdomen/Pelvis W/ IV Contrast unremarkable except for questionable mild wall thickening of the ascending colon. - HbA1c: 10.6 * Endocrinology following. Appreciate their recs. * GI consulted to rule out intraabdominal pathology. Appreciate their recs. Inpatient upper endoscopy if diet cannot be tolerated vs outpatient endoscopy and colonoscopy. * Continue 20 mEq of KCl in D51/2 NS @ 100 cc/hr. * Continue IV protonix (home famotidine 40 mg) * IV reglan for nausea * Anti-LISA ordered to evaluate for T1DM. * Continue Levemir 14 units BID and Novolog SSI Q4H as follows: for glucose <150 give no insulin, 151-200 give 4 units, 201-250 give 6 units, 251-300 give 8 units, 301-350 give 10 units and 351-400 give 12 units. If pt is eating consistently, can change novolog to TID before meals * Hold home glipizide 5 mg bid,metformin 1000mg tid, levemir flex touch 50 units before bedtime. * OK to downgrade to General Medicine. # Sleep * Melatonin 5 mg at bedtime # Continue home meds * Lisinopril 20 mg daily, flonase daily, tricor 145 mg daily Diet: Clear liquid --> Full liquid IVF: 20 mEq of KCl in D51/2 NS @ 100 cc/hr. DVT ppx: Mech and Pharm FULL CODE Problem List: 1. Abdominal pain 2. T2DM (type 2 diabetes mellitus) 3. IDDM (insulin dependent diabetes mellitus) Pain Ratin Pain Location: diffuse Pain Goal: Pain 7 or less Pain Plan: Reglan for nausea Tomorrow's Labs & Rationales: BEP, MG, Phos, glucose for DKA DVT/Prophylaxis: mechanical, pharmacological SU MARK,DARNELL 10/21/16 1614: Attending MD Review Statement Attending Statement Attending MD Statement: examined this patient, discuss w/resident/PA/CORPORATE DEVELOPMENT ASSOCIATE, agreed w/resident/PA/CORPORATE DEVELOPMENT ASSOCIATE, reviewed EMR data (avail), discussed with nursing, discussed with case mgmt, amended to note Attending Assessment/Plan: Patient seen and examined. Resting comfortably and not in acute distress. She was transferred out of intensive care unit yesterday and is currently GEN med hold on the telemetry floor. Blood glucose levels are controlled. Patient however reports nausea and repeated episodes of vomiting. She reports abdominal discomfort however there is no tenderness on exam. CT of the abdomen done yesterday shows mild inflammation of the ascending colon. GI consultation appreciated. Recommendations are to advance diet. If patient tolerates this she will follow-up with the service as an outpatient. If it continues to be symptomatic require endoscopic workup in the hospital. Her hemoglobin A1c level is markedly elevated. It is unclear how compliant she is retired regimen at home. Recommend visiting nurse services once she is discharged.
--- NOTE | 2016-10-21 07:45 | PN- Diabetes ---
Assessment/Plan Assessment: The patient states she feels a little better this morning. She still however has some nausea. She was very agitated during the night. She is on IV fluids with D5 half-normal saline +20 mEq KCl. She is on Levemir 14 units twice a day as well as sliding scale NovoLog every [address] scan of the abdomen done yesterday shows mild wall thickening of the descending colon. This may be due to lack of distention according to the radiologist. There is a small left adrenal nodule. Plan: Suggest continue the IV fluids with D5 half-normal saline at 100 mL per hour. Continue the present insulin coverage. The patient was on Ativan 1 mg 3 times a day as an outpatient. We should continue at least a small dose of Ativan in order to avoid withdrawal symptoms. The patient has a small adrenal nodule. I am not sure if this was ever evaluated before. If not the patient will need evaluation including a work up for pheochromocytoma, aldosterone, renin, and evaluation for [place]'s disease. This could be done as an outpatient. Once the patient is eating better we can reduce the patient's IV fluids to 50 mL an hour and change her NovoLog coverage to before meals only. Subjective Subjective: Still feels nauseated Review of Systems Constitutional: Denies: chills, fever. Respiratory: Denies: short of breath. Gastrointestinal: Reports: abdominal pain, nausea. Genitourinary: Denies: dysuria. Objective Last 24 Hrs of Vital Signs/I&O Vital Signs Date Time Temp Pulse Resp B/P Pulse O2 O2 Flow FiO2 Ox Delivery Rate 10/20 1600 97.8 98 20 120/74 96 Room Air 10/20 0800 97.7 98 18 122/ 95 Room Air Room Air Intake & Output 10/21 0000 10/20 1600 Intake Total 55 1006 Output Total 300 0 400 Balance -300 55 606 Intake, IV 35 1006 Intake, Oral 20 Number 1 Bowel Movements Output, Urine 300 0 400 Vital Signs Date Time Temp Pulse Resp B/P Pulse O2 O2 Flow FiO2 Ox Delivery Rate 10/20 1600 97.8 98 20 120/74 96 Room Air 10/20 0800 97.7 98 18 122/86 95 Room Air Room Air Intake & Output 10/21 0700 10/21 0000 10/20 1600 Intake Total 55 1006 Output Total 300 0 400 Balance -300 55 606 Intake, IV 35 1006 Intake, Oral 20 Number 1 Bowel Movements Output, Urine 300 0 400 Physical Exam General Appearance: alert, awake, anxious Head: normal appearance Neck: normal inspection Respiratory: normal breath sounds Cardiovascular: regular rate/rhythm Abdomen: soft, epigastric tenderness Extremities: no edema Current Medications: Current Medications Sig/Herman Start time Last Medication Dose Route Stop Time Status Admin Acetaminophen 650 MG Q6P PRN 10/19 2330 AC PO Alprazolam 1 MG ONCE ONE 10/21 0130 DC 10/21 PO 10/21 0131 0231 Alprazolam 1 MG FOUR TIMES A DAY 10/20 1800 CAN PO 10/27 1759 Fenofibrate 145 MG DAILY 10/20 1818 AC PO Haloperidol 0.2 MG ONCE ONE 10/20 1330 DC IM 10/20 1331 Heparin Sodium 5,000 UNIT Q8 10/19 2323 AC (Porcine) SC Insulin Aspart 0 Q4 10/20 1000 AC 10/21 SC 0230 Insulin Detemir 14 UNITS BID 10/20 2200 AC 10/20 SC 2248 Insulin Detemir 4 UNITS ONCE ONE 10/20 1430 DC 10/20 SC 10/20 1431 1723 Insulin Detemir 10 UNITS BID 10/20 1000 DC 10/20 SC 1035 Insulin Human Regular 100 UNIT ONCE ONE 10/19 2230 DC 10/19 Sodium Chloride 100 ML IV 10/20 1130 2240 Ketorolac 15 MG ONCE ONE 10/20 1330 CAN Tromethamine IV 10/20 1331 Lorazepam 1 MG Q4P PRN 10/20 1700 AC 10/20 IV 2249 Lorazepam 0.5 MG ONCE ONE 10/20 1315 CAN IV 10/20 1316 Magnesium Oxide 400 MG ONE ONE 10/20 1630 DC PO 10/20 1631 Ondansetron HCl 4 MG .STK-MED ONE 10/20 2047 DC IM 10/20 2048 Ondansetron HCl 4 MG Q6P PRN 10/19 2330 AC 10/20 IV 2100 Pantoprazole Sodium 40 MG DAILY 10/20 0030 AC 10/20 IV 1034 Phosphate 250 MG ONCE ONE 10/20 1645 DC PO 10/20 1646 Potassium Chloride 20 MEQ Q8H 10/20 0615 AC 10/20 Dextrose/Sodium 1,000 ML IV 2135 Chloride Potassium Chloride 40 MEQ Q8H 10/20 0415 DC 10/20 Dextrose/Sodium 1,000 ML IV 0719 Chloride Trimethobenzamide HCl 200 MG 4 TIMES/DAY PRN 10/20 1455 AC IM Trimethobenzamide HCl 200 MG 4 TIMES/DAY 10/20 1400 DC IM Findings Pertinent Lab/Luis Results: Laboratory Tests 10/20 0920 Chemistry Sodium (137 - 145 mmol/L) 134 L Potassium (3.5 - 5.1 mmol/L) 4.3 Chloride (98 - 107 mmol/L) 102 Carbon Dioxide (22 - 30 mmol/L) 20 L Anion Gap (5 - 16) 12 BUN (7 - 17 mg/dL) 8 Creatinine (0.5 - 1.0 mg/dL) 0.7 Estimated GFR (>60 ml/min) > 60 Glucose (65 - 99 mg/dL) 225 H Calcium (8.4 - 10.2 mg/dL) 8.1 L Phosphorus (2.5 - 4.5 mg/dL) 2.4 L Magnesium (1.6 - 2.3 mg/dL) 1.8 Total Bilirubin (0.2 - 1.3 mg/dL) 0.5 AST (14 - 36 U/L) 18 ALT (9 - 52 U/L) 31 Albumin (3.5 - 5.0 g/dL) 3.7
[2016-10-21 08:05] VITALS: BP 142/80
--- NOTE | 2016-10-21 10:45 | Cons- Gastroenterology ---
General Information and HPI Consulting Request Date of Consult: 10/21/16 Requested By: ANDRE MARK,CONRADO Reason for Consult: Nausea, vomiting, abdominal pain. Source of Information: patient, old records Exam Limitations: poor historian, language barrier History of Present Illness: Ms. Kang is a 61 year old hearing impaired female with a history of DM who was admitted to the ICU with DKA after she presented to with complaints of diffuse abdominal discomfort and nausea and vomiting for the previous few days. In the ICU she was treated with an insulin drip with closure of her anion gap and she has since been restarted on SC insulin and transferred to telemetry. She has been having bilious vomiting for the past few days associated with vague episgastric discomfort. She has been without any hematemesis and she denies any preceding heartburn or dysphagia. Since transfer to the medical floor she has been advanced to a clear liquid diet, but she had some dry heaving this morning and is now NPO. She has been gvien IV zofran, IV tigan, and IV protonix. She had 2 normal bowel movements yesterday and she has been without any brbpr, melena, diarrhea, or constipation. Allergies/Medications Allergies: Coded Allergies: acetaminophen (From Percocet) (UNKNOWN 10/19/16) ciprofloxacin (From Cipro) (UNKNOWN 10/19/16) diphenhydramine (From Benadryl) (UNKNOWN 10/19/16) loratadine (UNKNOWN 10/19/16) nitrofurantoin (UNKNOWN 10/19/16) oxycodone (From Percocet) (UNKNOWN 10/19/16) celecoxib (From Celebrex) (Intermediate, UPSET STOMACH 10/19/16) cimetidine (Intermediate, UPSET STOMACH 10/19/16) clarithromycin (Intermediate, UPSET STOMACH 10/19/16) cocaine (Intermediate, UPSET STOMACH 10/19/16) codeine (Intermediate, UPSET STOMACH 10/19/16) fluconazole (Intermediate, UPSET STOMACH 10/19/16) fluoxetine (From Prozac) (Intermediate, UPSET STOMACH 10/19/16) gabapentin (Intermediate, UPSET STOMACH 10/19/16) lansoprazole (Intermediate, UPSET STOMACH 10/19/16) mycophenolate mofetil (Intermediate, UPSET STOMACH 10/19/16) oxaprozin (From Daypro) (Intermediate, UPSET STOMACH 10/19/16) lorazepam (Mild, GI DISTRESS 10/20/16) Penicillins (UPSET STOMACH 10/19/16) buspirone (10/21/16) ranitidine (UPSET STOMACH 10/19/16) Home Med List: Alprazolam 1 MG TABLET 1 TAB PO Q6P PRN anxiety (Reported) Famotidine (Pepcid) 40 MG TABLET 1 TAB PO DAILY GERD (Reported) Fenofibrate 160 MG TABLET 1 TAB PO DAILY HLD (Reported) Fluticasone Propionate 50 MCG/ACTUATION SPRAY.SUSP 2 SPRAY NASB DAILY as per (Reported) Folic Acid 1 MG TABLET 1 TAB PO DAILY SUPPLEMENT (Reported) Glipizide 5 MG TABLET 1 TAB PO BID diabetes (Reported) Insulin Aspart, Recombinant (Novolog Flexpen) 100 UNIT/ML INSULN.PEN 0 SC TIDAC diabetes Please take blood sugar insulin 80-150mg/dl-four units 151-200mg/dl-five units 201-250mg/dl-six units 251-300mg/dl-seven units 301-350mg/dl-eight units 351-400mg/dl-nine units >400mg/dl-nine units. call Insulin Detemir (Levemir Flextouch) 100 UNIT/ML (3 ML) INSULN.PEN 50 UNITS SC QPM DIABETES (Reported) Insulin Detemir (Levemir) 100 UNIT/ML VIAL 14 UNITS SC BID DIABETES Lisinopril 20 MG TABLET 1 TAB PO DAILY BP (Reported) Metformin HCl (Glucophage) 1,000 MG TABLET 1 TAB PO TID SUGAR (Reported) Metoclopramide HCl (Reglan) 10 MG TABLET 1 TAB PO TID PRN Nausea 30 minutes before meals and bedtime Ramelteon (Rozerem) 8 MG TABLET 2 TAB PO BEDTIME PRN sleep Current Medications: Current Medications Sig/Herman Start time Last Medication Dose Route Stop Time Status Admin Acetaminophen 650 MG Q6P PRN 10/19 2330 AC PO Alprazolam 1 MG ONCE ONE 10/21 0130 DC 10/21 PO 10/21 0131 0231 Alprazolam 1 MG FOUR TIMES A DAY 10/20 1800 CAN PO 10/27 1759 Fenofibrate 145 MG DAILY 10/20 1818 AC 10/21 PO 0915 Haloperidol 0.2 MG ONCE ONE 10/20 1330 DC IM 10/20 1331 Heparin Sodium 5,000 UNIT Q8 10/19 2323 AC (Porcine) SC Insulin Aspart 0 Q4 10/20 1000 AC 10/21 SC 0751 Insulin Detemir 14 UNITS BID 10/20 2200 AC 10/21 SC 0915 Insulin Detemir 4 UNITS ONCE ONE 10/20 1430 DC 10/20 SC 10/20 1431 1723 Insulin Detemir 10 UNITS BID 10/20 1000 DC 10/20 SC 1035 Insulin Human Regular 100 UNIT ONCE ONE 10/19 2230 DC 10/19 Sodium Chloride 100 ML IV 10/20 1130 2240 Ketorolac 15 MG ONCE ONE 10/20 1330 CAN Tromethamine IV 10/20 1331 Lorazepam 1 MG Q4P PRN 10/20 1700 AC 10/21 IV 0752 Lorazepam 0.5 MG ONCE ONE 10/20 1315 CAN IV 10/20 1316 Magnesium Oxide 400 MG ONE ONE 10/20 1630 DC PO 10/20 1631 Ondansetron HCl 4 MG .STK-MED ONE 10/20 2047 DC IM 10/20 2048 Ondansetron HCl 4 MG Q6P PRN 10/19 2330 AC 10/21 IV 1030 Pantoprazole Sodium 40 MG DAILY 10/20 0030 AC 10/21 IV 0915 Phosphate 250 MG ONCE ONE 10/20 1645 DC PO 10/20 1646 Potassium Chloride 20 MEQ Q8H 10/20 0615 AC 10/21 Dextrose/Sodium 1,000 ML IV 1032 Chloride Trimethobenzamide HCl 200 MG 4 TIMES/DAY PRN 10/20 1455 AC IM Trimethobenzamide HCl 200 MG 4 TIMES/DAY 10/20 1400 DC IM Past History Travel History Traveled to [place] past 21 day No Medical History Blood Transfusion Hx: No Neurological: deafness EENT: CONGENITAL DEAFNESS Cardiovascular: TRIGLYCERIDEMIA Gastrointestinal: GERD, chronic abdominal pain Hepatic: s/p cholecystectomy Psychiatric: anxiety, depression Endocrine: diabetes Surgical History Surgical History: breast biopsy, cholecystectomy, cystoscopy, carpal tunnel Psychosocial History Where Do You Live? Home Services at Home: HOME PHONE-VIDEO PHONE [phone] [employer] Smoking Status: Former Smoker ETOH Use: denies use Illicit Drug Use: denies illicit drug use Functional Ability ADLs Independent: dressing, eating, toileting, bathing. Ambulation: independent IADLs Independent: shopping, housework, finances, food prep, telephone, transportation , medication admin. Review of Systems Review of Systems Constitutional: Reports: malaise, weakness. Denies: diaphoresis, fever. EENTM: Denies: no symptoms. Cardiovascular: Denies: no symptoms. Respiratory: Denies: no symptoms. GI: Reports: see HPI. Genitourinary: Denies: no symptoms. Musculoskeletal: Reports: joint pain. Denies: joint swelling. Skin: Denies: no symptoms. Neurological/Psychological: Reports: tingling. Hematologic/Endocrine: Denies: no symptoms. Immunologic/Allergic: Denies: no symptoms. All Other Systems: Reviewed and Negative Exam & Diagnostic Data Vital Signs and I&O Vital Signs Date Time Temp Pulse Resp B/P Pulse O2 O2 Flow FiO2 Ox Delivery Rate 10/21 0805 98.6 98 18 142/80 96 Room Air 10/21 0800 Room Air 10/20 1600 97.8 98 20 120/74 96 Room Air Intake & Output 10/21 1600 10/21 0400 10/20 1600 10/20 0400 10/19 1600 10/19 0400 Intake Total 962 11 7788 3000 Output Total 900 0 1150 Balance -668 74 5351 3000 Intake, IV 259 60 5790 3000 Intake, Oral 200 20 Number 2 Bowel Movements Output, Urine 900 0 1150 Patient 180 lb Weight Physical Exam General Appearance: well developed/nourished, no apparent distress, alert, comfortable Head: atraumatic, normal appearance Eyes: Bilateral: normal appearance. Ears, Nose, Throat: normal pharynx, normal ENT inspection Neck: normal inspection, supple, full range of motion Respiratory: normal breath sounds, chest non-tender, no respiratory distress Cardiovascular: regular rate/rhythm Gastrointestinal: normal bowel sounds, soft, non-tender Rectal: deferred Back: normal inspection, normal range of motion Extremities: normal inspection, no edema Neurologic/Psych: no motor/sensory deficits, awake, alert, oriented x 3 Skin: intact, normal color, warm/dry Results Pertinent Lab Results: Laboratory Tests 10/20 10/20 10/20 10/20 10/20 0920 0406 0400 0400 0009 Chemistry Sodium (137 - 145 mmol/L) 134 L 137 136 L Potassium (3.5 - 5.1 mmol/L) 4.3 4.3 4.8 Chloride (98 - 107 mmol/L) 102 104 102 Carbon Dioxide (22 - 30 mmol/L) 20 L 22 17 L Anion Gap (5 - 16) 12 11 18 H BUN (7 - 17 mg/dL) 8 10 12 Creatinine (0.5 - 1.0 mg/dL) 0.7 0.7 0.7 Estimated GFR (>60 ml/min) > 60 > 60 > 60 Glucose (65 - 99 mg/dL) 225 H 194 H 290 H Calcium (8.4 - 10.2 mg/dL) 8.1 L 7.9 L 8.3 L Phosphorus (2.5 - 4.5 mg/dL) 2.4 L 2.7 3.2 Magnesium (1.6 - 2.3 mg/dL) 1.8 1.5 L 1.1 L Total Bilirubin (0.2 - 1.3 mg/dL) 0.5 0.4 0.6 AST (14 - 36 U/L) 18 19 24 ALT (9 - 52 U/L) 31 30 27 Troponin I (< 0.11 ng/ml) Cancelled < 0.01 Albumin (3.5 - 5.0 g/dL) 3.7 3.6 4.1 Triglycerides (<150 mg/dL) 170 H Cholesterol (<200 MG/DL) 151 LDL Cholesterol, Calc (65 - 129 mg/dL) 65 HDL Cholesterol (40 - 60 mg/dL) 52 Cholesterol/HDL Ratio (0.00 - 4.23 %) 3 Immunology LISA Antibody Pending 10/19 Blood Gas Bicarbonate Actual (22 - 26 MEQ/L) 20 L Mixed VBG pH (7.31 - 7.41 PH) 7.32 Mixed VBG pCO2 (41 - 51 TORR) 39 L Mixed VBG O2 Saturation (35 - 45 TORR) 26 L Carboxyhemoglobin (1.5 - 5.0 %) 1.1 L O2 Concentration % RA O2 Delivery Method RA Chemistry Sodium (137 - 145 mmol/L) 136 L Potassium (3.5 - 5.1 mmol/L) 5.3 H Chloride (98 - 107 mmol/L) 96 L Carbon Dioxide (22 - 30 mmol/L) 20 L Anion Gap (5 - 16) 21 H BUN (7 - 17 mg/dL) 14 Creatinine (0.5 - 1.0 mg/dL) 0.8 Estimated GFR (>60 ml/min) > 60 BUN/Creatinine Ratio (7 - 25 %) 17.5 Glucose (65 - 99 mg/dL) 357 H Serum Osmolality (285 - 295 MOSM/KG) 309 H Calcium (8.4 - 10.2 mg/dL) 9.2 Total Bilirubin (0.2 - 1.3 mg/dL) 0.7 AST (14 - 36 U/L) 25 ALT (9 - 52 U/L) 33 Alkaline Phosphatase (<127 U/L) 43 Troponin I (< 0.11 ng/ml) < 0.01 Total Protein (6.3 - 8.2 g/dL) 7.3 Albumin (3.5 - 5.0 g/dL) 4.5 Globulin (1.9 - 4.2 gm/dL) 2.8 Albumin/Globulin Ratio (1.1 - 2.2 %) 1.6 Lipase (23 - 300 U/L) 79 Hematology CBC w Diff MAN DIFF ORDERED WBC (4.8 - 10.8 /CUMM) 8.9 RBC (4.20 - 5.40 /CUMM) 4.05 L Hgb (12.0 - 16.0 G/DL) 12.5 Hct (37 - 47 %) 37.4 MCV (81.0 - 99.0 FL) 92.2 MCH (27.0 - 31.0 PG) 30.9 RDW (11.5 - 14.5 %) 13.5 Plt Count (130 - 400 /CUMM) 255 MPV (7.4 - 10.4 FL) 8.7 Gran % (42.2 - 75.2 %) 85.6 H Lymphocytes % (20.5 - 51.1 %) 11.3 L Monocytes % (1.7 - 9.3 %) 2.7 Eosinophils % (0 - 5 %) 0.2 Basophils % (0.0 - 2.0 %) 0.2 Absolute Granulocytes (1.4 - 6.5 /CUMM) 7.6 H Segmented Neutrophils (42.2 - 75.2 %) 82 H Band Neutrophils (0.0 - 5.0 %) 2 Absolute Lymphocytes (1.2 - 3.4 /CUMM) 1.0 L Lymphocytes (20.5 - 51.1 %) 12 L Monocytes (1.7 - 9.3 %) 4 Absolute Monocytes (0.10 - 0.60 /CUMM) 0.2 Absolute Eosinophils (0.0 - 0.7 /CUMM) 0 Absolute Basophils (0.0 - 0.2 /CUMM) 0 Platelet Estimate (ADEQUATE) ADEQUATE Hypochromic-Microcytic 1+ Anisocytosis 1+ PUBS MCHC (33.0 - 37.0 G/DL) 33.5 Toxicology Acetone Level (NEGATIVE) POSITIVE AT 1:4 DIL 10/19 Chemistry Hemoglobin A1c (<5.7) 10.6 H Toxicology Urine Opiates Screen (>2000 NG/ML) < 100.00 Methadone Screen (>300 NG/ML) 76 Barbiturate Screen (>200 NG/ML) < 60 Ur Phencyclidine Scrn (>25 NG/ML) < 6.00 Amphetamines Screen (>1000 NG/ML) < 100 U Benzodiazepines Scrn (>200 NG/ML) 722 H Urine Cocaine Screen (>300 NG/ML) < 50 Urine Cannabis Screen (>50 NG/ML) < 5.00 Urines Urine Color (YEL,AMB,STR) YEL Urine Clarity (CLEAR) CLEAR Urine pH (5.0 - 8.0) 6.0 Ur Specific [place] (1.001 - 1.035) 1.020 Urine Protein (NEG,<30 MG/DL) NEG Urine Ketones (NEG) 40 H Urine Nitrite (NEG) NEG Urine Bilirubin (NEG) NEG Urine Urobilinogen (0.1 - 1.0 EU/dl) 0.2 Ur Leukocyte Esterase (NEG) NEG Ur Microscopic EXAM NOT REQUIRED Urine Hemoglobin (NEG) NEG Urine Glucose (N MG/DL) >=1000 H Imaging/Other Studies: EXAM TYPE: CAT - CT ABD & PELVIS W IV CONTRAST EXAMINATION: CT ABDOMEN AND PELVIS WITH CONTRAST CLINICAL INFORMATION: Abdominal pain, nausea and vomiting. COMPARISON: 09/22/2006 TECHNIQUE: Multidetector volumetric imaging was performed of the abdomen and pelvis before and after the IV administration of 95 mL of Optiray 320 intravenous contrast. Sagittal and coronal reformatted images were obtained on the technologist's workstation. DLP: 780 mGy-cm FINDINGS: LUNG BASES: Linear scarring at the right lung base. LIVER, GALLBLADDER, AND BILIARY TREE: Mild diffuse fatty infiltration of the liver. The gallbladder has been removed. PANCREAS: Unremarkable. SPLEEN: Unremarkable. ADRENAL GLANDS: There is a 1.1 cm nodule of the left adrenal gland which measured 0.7 cm on the previous study. This is indeterminate although given the density measurements, does not represent a lipid-rich adenoma. KIDNEYS AND URETERS: The kidneys are normal in size, shape, and attenuation. No hydronephrosis, hydroureter, or calculi seen. Bilateral perinephric stranding which appears symmetric and is nonspecific. BLADDER: Unremarkable. GASTROINTESTINAL TRACT: Mild wall thickening of the ascending colon which may be accentuated by lack of distention. Otherwise unremarkable with no evidence of obstruction. ABDOMINAL WALL: No significant hernia is appreciated. LYMPH NODES: Normal. VASCULAR: There are atherosclerotic calcifications of the distal abdominal aorta. No aneurysmal dilatation. PELVIC VISCERA: Unremarkable. OSSEOUS STRUCTURES: Unremarkable. IMPRESSION: Questionable mild wall thickening of the ascending colon which may be accentuated by lack of distention. There is a 1.1 cm left adrenal nodule which measured 0.7 cm on the 2007 study. This is stable since the chest CT dated 07/29/2016. There is bilateral perinephric stranding which appears symmetric and is nonspecific. No hydronephrosis. Mild diffuse fatty infiltration of the liver. Assessment/Plan Assessment/Recommendations: Assessment: Ms. Kang is a 61-year-old hearing impaired female with a history of diabetes on insulin who was admitted to the ICU with DKA after presenting with several days of nausea and vomiting which she has continued to have in spite of correction of her anion gap. Considering her history of long-standing diabetes which is apparently poorly controlled with her elevated HgBA1c over 10 and her reports of paresthesias I suspect she likely has underlying gastroparesis. Other potential etiologies of her symptoms includes peptic ulcer disease, poorly controlled GERD or an occult malignancy. Her CAT scan on admission did not show any obvious evidence of a gastric outlet obstruction or any gastric masses, however she still should have an upper endoscopy to further evaluate her symptoms and rule out a mechanical obstruction. If her diet is able to be advanced with conservative measures, however this can be pursued as an outpatient considering she is without any concerning GI warning signs. Recommendations: 1. Advance diet as tolerated. 2. Continue IV Protonix daily. 3. Avoid NSAIDs. 4. Administer antiemetics as needed and if no benefit with Zofran is achieved with then use IV Reglan. 5. Notify GI for any evidence of overt GI bleeding. 6. If her diet is not able to be advanced will then consider an inpatient upper endoscopy otherwise will plan to pursue it as an outpatient along with a repeat colonoscopy which she also appears to be due for screening purposes. I will continue to follow this patient and make further recognitions based on her clinical course and results of repeat lab work. Copies To: MELISSA MARK,ASHLEY Cantu Consult Acknowledgment - Thank you for your consult request.
[2016-10-21 12:24] LABS: ABSOLUTE BASOPHIL COUNT 0 /CUMM (0.0-0.2); ABSOLUTE EOSINOPHIL COUNT 0.1 /CUMM (0.0-0.7); ABSOLUTE GRANULOCYTE CT 6.4 /CUMM (1.4-6.5); ABSOLUTE LYMPH COUNT 1.5 /CUMM (1.2-3.4); ABSOLUTE MONOCYTE COUNT 0.7 /CUMM (0.10-0.60); BASOPHIL % 0.1 % (0.0-2.0); EOSINOPHIL % 1.1 % (0-5); GRANULOCYTE % 73.5 % (42.2-75.2); HEMATOCRIT 35.7 % (37-47); MEAN CORPUSCULAR HGB 30.7 PG (27.0-31.0); MEAN CORPUSCULAR HGB CONC 33.2 G/DL (33.0-37.0); MEAN CORPUSCULAR VOLUME 92.4 FL (81.0-99.0); MEAN PLATELET VOLUME 9.1 FL (7.4-10.4); PLATELET COUNT 248 /CUMM (130-400); RBC DISTRIBUTION WIDTH 13.7 % (11.5-14.5); RED BLOOD CELL CT 3.86 /CUMM (4.20-5.40); WHITE BLOOD CELL COUNT 8.7 /CUMM (4.8-10.8)
[2016-10-21] MEDS ORDERED: GLIPIZIDE5 M2 PO (13:23)
[2016-10-21] MEDS ORDERED: LISINOPRIL20 M1 PO (13:24)
[2016-10-21] MEDS ORDERED: FLUTICASONE PRO16 GM NASB (13:24)
[2016-10-21 14:32] VITALS: BP 110/70
[2016-10-21 16:41] VITALS: BP 135/78
[2016-10-22 00:27] VITALS: BP 128/76
--- NOTE | 2016-10-22 06:55 | PN- Housestaff ---
CANDY MARK,[facility] 10/22/16 0655: Subjective Follow-up For: persistent nausea and abdominal pain benzo withdrawal? eye discomfort delirium? Subjective: The night team noted that pt had jerky movements and was up all night. She was also having visual hallucination. When seen this morning, she was still having jerky movements and making facial grimace. She kept making movements like she was going to pick something out of her eyes and nose. Neurology was called. EEG ordered. CT head ordered, which showed no acute findings. Her electrolytes were within normal limits. Will check with Dr. Mo regarding her baseline. Dr. Mo's office is closed on Thursday. Her says that she takes eye drops (that are not prescribed to her, prescribed to her brother in law). I don't feel comfortable calling the pharmacy to inquire about her brother in law meds. Nursing has also brought up concern that she keeps other pts awake at night when she moans/scream. We encouraged her to be here at night to accompany her and minimize delirium triggers. She is going for upper endoscopy today. Have placed psych consult for her as well. Based on nurse's chart, she took 0% of her lunch and dinner yesterday but I know she did have some turkmen ice and soda (as she was on full liquid diet), causing her blood sugar to be up to 309, before it was changed to diabetic diet. Review of Systems Constitutional: Denies: chills, fever. EENTM: Reports: eye pain. Cardiovascular: Denies: chest pain. Respiratory: Denies: short of breath. Gastrointestinal: Reports: abdominal pain, nausea. Objective Last 24 Hrs of Vital Signs/I&O Vital Signs Date Time Temp Pulse Resp B/P Pulse O2 O2 Flow FiO2 Ox Delivery Rate 10/22 1056 111 138/90 10/22 0812 98.0 111 18 138/90 96 Room Air 10/22 0027 98.2 108 16 128/76 96 Room Air 10/22 0000 96 10/21 1641 98.6 108 15 135/78 99 Room Air 10/21 1432 102 18 110/70 10/21 1428 102 110/70 Intake & Output 10/22 1600 10/22 0800 10/22 0000 Intake Total 890 865 Output Total 450 650 Balance 440 215 Intake, IV 650 400 Intake, Oral 240 465 Number 2 Bowel Movements Output, Urine 450 650 Physical Exam General Appearance: Alert, making jerky movements. appear uncomfortable trying to pick her eyes and nose. very sensitive to touch, jumps when she is touched. refused abdominal exam due to tenderness. Skin: No Significant Lesion HEENT: Atraumatic, pupils dilated and nonreactive Neck: Supple Cardiovascular: Regular Rate, Normal S1, Normal S2, No Murmurs, Gallops, Rubs Lungs: Clear to Auscultation, Normal Air Movement Abdomen: ?tender Neurological: decreased strength bilaterally Extremities: No Edema, tender to slight touch, nonspecific Current Medications: Current Medications Sig/Herman Start time Last Medication Dose Route Stop Time Status Admin Acetaminophen 650 MG Q6P PRN 10/19 2330 AC PO Alprazolam 1 MG TID 10/22 1000 AC 10/22 PO 10/29 0829 1059 Alprazolam 1 MG ONCE ONE 10/22 0400 DC 10/22 PO 10/22 0401 0406 Alprazolam 1 MG TID PRN 10/21 1130 DC PO 10/28 1129 Calcium Carbonate 500 MG DAILY 10/22 1000 AC 10/22 PO 1056 Fenofibrate 145 MG DAILY 10/20 1818 AC 10/22 PO 1057 Fluticasone 2 SPRAY DAILY 10/21 1324 AC 10/22 Propionate NENA 1058 Heparin Sodium 5,000 UNIT Q8 10/19 2323 AC (Porcine) SC Insulin Aspart 0 Q4 10/20 1000 AC 10/22 SC 1057 Insulin Detemir 14 UNITS BID 10/20 2200 AC 10/22 SC 1058 Lisinopril 20 MG DAILY 10/21 1325 AC 10/22 PO 1056 Lorazepam 0.5 MG ONCE ONE 10/22 0830 DC 10/22 IV 10/22 0831 0846 Magnesium Oxide 400 MG ONE ONE 10/21 2300 CAN PO 10/21 2301 Magnesium Sulfate 1 GM ONCE ONE 10/22 0015 DC 10/22 Dextrose/Water 100 ML IV 10/22 0414 0110 Melatonin 5 MG AT BEDTIME 10/21 2200 AC 10/21 PO 2208 Metoclopramide HCl 10 MG Q6P PRN 10/21 1445 AC 10/21 IV 1520 Ondansetron HCl 4 MG Q6P PRN 10/19 2330 DC 10/21 IV 1030 Pantoprazole Sodium 40 MG DAILY 10/20 0030 AC 10/22 IV 1056 Patient Medication 1 ED .STK-MED ONE 10/21 1416 DC Teaching ED 10/21 1417 Potassium Chloride 20 MEQ Q8H 10/20 0615 10/22 Dextrose/Sodium 1,000 ML IV 1059 Chloride Ramelteon 8 MG AT BEDTIME 10/22 2200 AC PO Trimethobenzamide HCl 200 MG 4 TIMES/DAY PRN 10/20 1455 DC IM Last 24 Hrs of Lab/Luis Results Last 24 Hrs of Labs/Mics: Laboratory Tests 10/22/16 0700: Anion Gap 11, Estimated GFR > 60, BUN/Creatinine Ratio 7.5, Glucose 177 H, Calcium 9.4, Phosphorus 3.7, Magnesium 2.1, Albumin 4.2, Vitamin B12 Pending, 25 -OH Vitamin D Total 9.2 L, TSH 0.954, Free T4 2.10 H 10/21/16 1850: Anion Gap 14, Estimated GFR > 60, BUN/Creatinine Ratio 7.5, Glucose 226 H, Phosphorus 2.5, Magnesium 1.7 Assessment/Plan Assessment: 61 y/o F with PMHx of T2DM on insulin, congenital deafness and hypertriglyceridemia who presents with abdominal pain, nausea and vomiting x2 days. Pt was admitted to ICU for insulin drip, subsequently transferred to [facility] for persistent abdominal pain despite closed AG, and better controlled sugar. Problem List: # DKA # Viral gastroenteritis vs Gastroparesis vs gastric ulcer - Presented with nausea, vomiting and abdominal pain. Came in with glucose 357, bicarb 20, and had positive ketones. Her gap measured at 21 on admission. VBG showed pH at 7.32. WBC 8.9 and afebrile.Treated with insulin drip overnight with closure of anion gap and improvement of glucose to 200s. Insulin drip was discontinued and patient was converted to subcutaneous insulin. - No obvious trigger identified for the DKA. - CT Abdomen/Pelvis W/ IV Contrast unremarkable except for questionable mild wall thickening of the ascending colon. - HbA1c: 10.6 * Endocrinology following. Appreciate their recs. * GI consulted to rule out intraabdominal pathology. Appreciate their recs. * Follow inpatient upper endoscopy (NPO for procedure then CC3) * Continue 20 mEq of KCl in D51/2 NS @ 100 cc/hr * Continue IV protonix (home famotidine 40 mg) * IV reglan for nausea * Anti-LISA ordered to evaluate for T1DM. * Continue Levemir 14 units BID and Novolog SSI Q4H as follows: for glucose <150 give no insulin, 151-200 give 4 units, 201-250 give 6 units, 251-300 give 8 units, 301-350 give 10 units and 351-400 give 12 units. If pt is eating consistently, can change novolog to TID before meals * Hold home glipizide 5 mg bid,metformin 1000mg tid, levemir flex touch 50 units before bedtime. * OK to downgrade to General Medicine. # ?Seizure due to benzo withdrawal vs delirum - Pt takes xanax with urine benzo was positive 722H - Pt's jerking movements has been chronic as per her - TSH 0.954, FT4 2.1H, Vit D 9.2 L * Restart xanax 1 mg q6 * CT head negative for acute findings * Follow EEG * Follow Psych * Check with PCP (Dr. Mo) her baseline * Rozerem 8 mg at bedtime * Started vit d 1000 daily * Follow up Vit b12 * Consider sitter at night # Eye discomfort * Visine # Sleep * Melatonin 5 mg at bedtime # Continue home meds * Lisinopril 20 mg daily, flonase daily, tricor 145 mg daily Diet: Clear liquid --> Full liquid IVF: 20 mEq of KCl in D51/2 NS @ 100 cc/hr. DVT ppx: Mech and Pharm FULL CODE Problem List: 1. Abdominal pain Pain Ratin Pain Location: diffuse abd pain Pain Goal: Pain 4 or less Pain Plan: reglan for nausea Tomorrow's Labs & Rationales: none DVT/Prophylaxis: mechanical, pharmacological SU MARK,DARNELL 10/22/16 1506: Attending MD Review Statement Attending Statement Attending MD Statement: examined this patient, discuss w/resident/PA/RETAIL VISUAL MERCHANDISER, agreed w/resident/PA/RETAIL VISUAL MERCHANDISER, reviewed EMR data (avail), discussed with nursing, discussed with case mgmt, amended to note Attending Assessment/Plan: Patient seen and examined. Nursing staff reports bizarre generalized movements on and off. I did witness patient performing these motions intermittently. brushed off these movements stating they're chronic for her and that she performs these movements when she is uncomfortable. The patient is a comfortable due to dry eyes and she is currently requesting her eyedrops. She reports abdominal discomfort has improved. She has been tolerating oral intake. On examination abdomen is soft and nontender. Neurology evaluation appreciated. Impression is that her movements are behavioral. EGD results noted. Recommendations: -Advised diet as tolerated. -Mobilize patient. -Follow-up EEG although her movements are less likely secondary to seizure. -Transition to oral PPI therapy. -Continue recommendations by the endocrinology service. -Anticipate discharge home tomorrow.
--- NOTE | 2016-10-22 07:37 | PN- Diabetes ---
Assessment/Plan Assessment: She remains very agitated. She uses constantly moaning. She now states that she has pain in the right upper jaw and wants her tooth pulled. Her blood sugars have improved but she has a persistent tachycardia. A CT scan of the abdomen done yesterday shows mild wall thickening of the descending colon. This may be due to lack of distention according to the radiologist. There is a small left adrenal nodule. Plan: Suggest advance diet. For now leave on IV fluids at the present rate, Levemir twice a day, and Novolog coverage every 4 hours until we're sure that the patient is eating well. Once eating well we can switch her NovoLog coverage to before meals. The patient may be suffering from delirium. Suggest psychiatry consult. Check thyroid tests including free T4 and TSH. Recheck the patient's calcium, magnesium, albumin, and vitamin D level along with today's labs. Also check vitamin B12. Dental consult if one is available in the hospital. Subjective Subjective: Complains of tooth pain Review of Systems Constitutional: Denies: chills, fever. Cardiovascular: Denies: chest pain. Objective Last 24 Hrs of Vital Signs/I&O Vital Signs Date Time Temp Pulse Resp B/P Pulse O2 O2 Flow FiO2 Ox Delivery Rate 10/22 0027 98.2 108 16 128/76 96 Room Air 10/22 0000 96 10/21 1641 98.6 108 15 135/78 99 Room Air 10/21 1432 102 18 110/70 10/21 1428 102 110/70 10/21 0805 98.6 98 18 142/80 96 Room Air 10/21 0800 Room Air Intake & Output 10/22 0800 10/22 0000 10/21 1600 Intake Total 800 439 5508.5 Output Total 450 650 550 Balance 440 215 867.5 Intake, IV 650 400 967.5 Intake, Oral 240 465 450 Number 2 1 Bowel Movements Output, Urine 450 650 550 Patient 180 lb Weight Vital Signs Date Time Temp Pulse Resp B/P Pulse O2 O2 Flow FiO2 Ox Delivery Rate 10/22 0027 98.2 108 16 128/76 96 Room Air 10/22 0000 96 10/21 1641 98.6 108 15 135/78 99 Room Air 10/21 1432 102 18 110/70 10/21 1428 102 110/70 10/21 0805 98.6 98 18 142/80 96 Room Air 10/21 0800 Room Air Intake & Output 10/22 0800 10/22 0000 10/21 1600 Intake Total 222 940 4971.5 Output Total 450 650 550 Balance 440 215 867.5 Intake, IV 650 400 967.5 Intake, Oral 240 465 450 Number 2 1 Bowel Movements Output, Urine 450 650 550 Patient 180 lb Weight Physical Exam General Appearance: alert, awake, anxious, agitated Head: normal appearance Neck: normal inspection Respiratory: normal breath sounds Cardiovascular: tachycardia Abdomen: normal bowel sounds Extremities: normal inspection Current Medications: Current Medications Sig/Herman Start time Last Medication Dose Route Stop Time Status Admin Acetaminophen 650 MG Q6P PRN 10/19 2330 AC PO Alprazolam 1 MG ONCE ONE 10/22 0400 DC 10/22 PO 10/22 0401 0406 Alprazolam 1 MG TID PRN 10/21 1130 DC PO 10/28 1129 Fenofibrate 145 MG DAILY 10/20 1818 AC 10/21 PO 0915 Fluticasone 2 SPRAY DAILY 10/21 1324 AC 10/21 Propionate NENA 1427 Heparin Sodium 5,000 UNIT Q8 10/19 2323 AC (Porcine) SC Insulin Aspart 0 Q4 10/20 1000 AC 10/22 SC 0634 Insulin Detemir 14 UNITS BID 10/20 2200 AC 10/21 SC 2208 Lisinopril 20 MG DAILY 10/21 1325 AC 10/21 PO 1428 Lorazepam 1 MG Q4P PRN 10/20 1700 DC 10/21 IV 0752 Magnesium Oxide 400 MG ONE ONE 10/21 2300 CAN PO 10/21 2301 Magnesium Sulfate 1 GM ONCE ONE 10/22 0015 DC 10/22 Dextrose/Water 100 ML IV 10/22 0414 0110 Melatonin 5 MG AT BEDTIME 10/21 2200 AC 10/21 PO 2208 Metoclopramide HCl 10 MG Q6P PRN 10/21 1445 AC 10/21 IV 1520 Ondansetron HCl 4 MG .STK-MED ONE 10/21 1026 DC IM 10/21 1027 Ondansetron HCl 4 MG Q6P PRN 10/19 2330 DC 10/21 IV 1030 Pantoprazole Sodium 40 MG DAILY 10/20 0030 AC 10/21 IV 0915 Patient Medication 1 ED .STK-MED ONE 10/21 1416 DC Teaching ED 10/21 1417 Potassium Chloride 20 MEQ Q8H 10/20 0615 AC 10/21 Dextrose/Sodium 1,000 ML IV 2307 Chloride Trimethobenzamide HCl 200 MG 4 TIMES/DAY PRN 10/20 1455 DC IM Findings Pertinent Lab/Luis Results: Laboratory Tests 10/22 10/21 10/21 0700 1850 1120 Chemistry Sodium (137 - 145 mmol/L) Pending 139 139 Potassium (3.5 - 5.1 mmol/L) Pending 4.4 4.2 Chloride (98 - 107 mmol/L) Pending 105 102 Carbon Dioxide (22 - 30 mmol/L) Pending 21 L 24 Anion Gap (5 - 16) Pending 14 13 BUN (7 - 17 mg/dL) Pending 6 L 7 Creatinine (0.5 - 1.0 mg/dL) Pending 0.8 0.7 Estimated GFR (>60 ml/min) > 60 > 60 BUN/Creatinine Ratio (7 - 25 %) Pending 7.5 10.0 Glucose (65 - 99 mg/dL) Pending 226 H Phosphorus (2.5 - 4.5 mg/dL) Pending 2.5 Magnesium (1.6 - 2.3 mg/dL) Pending 1.7 1.8 Hematology CBC w Diff NO MAN DIFF REQ WBC (4.8 - 10.8 /CUMM) 8.7 RBC (4.20 - 5.40 /CUMM) 3.86 L Hgb (12.0 - 16.0 G/DL) 11.9 L Hct (37 - 47 %) 35.7 L MCV (81.0 - 99.0 FL) 92.4 MCH (27.0 - 31.0 PG) 30.7 RDW (11.5 - 14.5 %) 13.7 Plt Count (130 - 400 /CUMM) 248 MPV (7.4 - 10.4 FL) 9.1 Gran % (42.2 - 75.2 %) 73.5 Lymphocytes % (20.5 - 51.1 %) 17.6 L Monocytes % (1.7 - 9.3 %) 7.7 Eosinophils % (0 - 5 %) 1.1 Basophils % (0.0 - 2.0 %) 0.1 Absolute Granulocytes (1.4 - 6.5 /CUMM) 6.4 Absolute Lymphocytes (1.2 - 3.4 /CUMM) 1.5 Absolute Monocytes (0.10 - 0.60 /CUMM) 0.7 H Absolute Eosinophils (0.0 - 0.7 /CUMM) 0.1 Absolute Basophils (0.0 - 0.2 /CUMM) 0 PUBS MCHC (33.0 - 37.0 G/DL) 33.2
[2016-10-22 08:12] VITALS: BP 138/90
--- NOTE | 2016-10-22 10:54 | CT SCAN REPORT ---
EXAMINATION: CT HEAD WITHOUT CONTRAST CLINICAL INFORMATION: Possible new seizures with twitching. COMPARISON: CT head 04/14/2016. TECHNIQUE: Contiguous axial imaging was performed from the skull base to vertex without intravenous administration of contrast. DLP: 886.89 mGy-cm FINDINGS: There is no evidence of acute intracranial hemorrhage or territorial infarction. No abnormal mass effect or midline shift is seen. Maloney to white matter differentiation is well preserved. No extra-axial fluid collections are identified. There is mild commensurate prominence of the ventricles and sulci consistent with mild diffuse volume loss. Attenuation of the brain parenchyma is unremarkable. The osseous structures and soft tissues are normal; there is mild hyperostosis frontalis interna. The mastoid air cells are well-aerated. The frontal sinuses are not pneumatized. The paranasal sinuses are well-aerated. IMPRESSION: 1. There are no acute intracranial findings. 2. There are changes consistent with mild diffuse volume loss.
--- NOTE | 2016-10-22 12:58 | Proc Note Endoscopy ---
Endoscopy Procedure Medical History: unchanged (see meditech consult) Mental Status: alert/oriented Heart/Lung Eval Prior to Sedation: within normal limits Candidate for Sedation? Yes Procedure Date: 10/22/16 Procedure Type: EGD w/biopsy Robotics Specialist: Jose Griggs MD ASA Classification: III Indications: Nausea and vomiting, abdominal pain. Instrument: diagnostic gastroscope Meds Received: MAC Patient's Tolerance: good Complications: none Extent Reached: second part of duodenum Procedure: After getting written informed consent the patient was placed in the left lateral decubitus position with pulse oximetry, cardiac monitoring, and supplemental oxygen given. A bite block was inserted and IV sedation was given until the desired effect was achieved. A high definition upper Olympus endoscope was then inserted into the mouth and advanced to the second portion of the duodenum with little difficulty. Retroflexed views and photodocumentation was obtained. Findings: Esophagus: There was some adherent secretions and food to the esophageal mucosa, but this was easily washed away and the underlying esophageal mucosa was grossly normal in appearance. Random biopsies were obtained from the esophageal mucosa with cold biopsy forceps and were sent to pathology for further evaluation. The Z line was located 40 cm from the incisors and was grossly normal appearance. Stomach: The gastric mucosa was grossly normal in appearance. There were no ulcers, erosions, or masses appreciated. Distention was normal, but peristalsis appeared decreased in the was a scant amount of leftover food and bile. The pylorus was patent and easily traversable by the upper endoscope. Retroflexed views were normal and did not reveal a significant hiatal hernia. Random biopsies were obtained from the antrum with cold biopsy forceps and were sent pathology for further evaluation. Duodenum: The duodenal bulb, sweep, and folds are grossly normal in appearance. Impression: 1. Suggestion of gastroparesis status post antral biopsies. 2. Secretions and food in upper esophagus status post biopsies. Recommendations: 1. Continue IV Protonix for now. 2. Administer antiemetics with either Zofran or Reglan as needed. 3. Follow fingersticks and control with insulin as closely as possible. 4. She should follow up the pathology results me as an outpatient. 5. Advance diet as tolerated and once she is tolerating a by mouth diet would change her over to an oral PPI. CC: MELISSA MARK,ASHLEY Cantu
--- NOTE | 2016-10-22 15:01 | Cons- Neurology ---
General Information and HPI Consulting Request Date of Consult: 10/22/16 Requested By: DARNELL BLUE M.D History of Present Illness: 61-year-old female with history of congenital deafness, diabetes and depression. She was admitted with dizziness, nausea and vomiting. She was found to be in diabetic ketoacidosis which has been treated with improving metabolic profile. History is obtained both from the patient using mime and with the assistance of another hearing-impaired person at the bedside. He states that the patient has been sleep deprived, anxious and angry, wanting to go home. Over the past 24 hours nursing has observed multiple brief episodes of thrashing and [id number] head shaking or which seizure was questioned and neurology has been asked to further assess. Allergies/Medications Allergies: Coded Allergies: acetaminophen (From Percocet) (UNKNOWN 10/19/16) ciprofloxacin (From Cipro) (UNKNOWN 10/19/16) diphenhydramine (From Benadryl) (UNKNOWN 10/19/16) loratadine (UNKNOWN 10/19/16) nitrofurantoin (UNKNOWN 10/19/16) oxycodone (From Percocet) (UNKNOWN 10/19/16) celecoxib (From Celebrex) (Intermediate, UPSET STOMACH 10/19/16) cimetidine (Intermediate, UPSET STOMACH 10/19/16) clarithromycin (Intermediate, UPSET STOMACH 10/19/16) cocaine (Intermediate, UPSET STOMACH 10/19/16) codeine (Intermediate, UPSET STOMACH 10/19/16) fluconazole (Intermediate, UPSET STOMACH 10/19/16) fluoxetine (From Prozac) (Intermediate, UPSET STOMACH 10/19/16) gabapentin (Intermediate, UPSET STOMACH 10/19/16) lansoprazole (Intermediate, UPSET STOMACH 10/19/16) mycophenolate mofetil (Intermediate, UPSET STOMACH 10/19/16) oxaprozin (From Daypro) (Intermediate, UPSET STOMACH 10/19/16) lorazepam (Mild, GI DISTRESS 10/20/16) Penicillins (UPSET STOMACH 10/19/16) buspirone (10/21/16) ranitidine (UPSET STOMACH 10/19/16) Home Med List: Famotidine (Pepcid) 40 MG TABLET 1 TAB PO DAILY GERD (Reported) Fenofibrate 160 MG TABLET 1 TAB PO DAILY HLD (Reported) Fluticasone Propionate 50 MCG/ACTUATION SPRAY.SUSP 2 SPRAY NASB DAILY as per (Reported) Folic Acid 1 MG TABLET 1 TAB PO DAILY SUPPLEMENT (Reported) Glipizide 5 MG TABLET 1 TAB PO BID diabetes (Reported) Insulin Detemir (Levemir Flextouch) 100 UNIT/ML (3 ML) INSULN.PEN 50 UNITS SC QPM DIABETES (Reported) Lisinopril 20 MG TABLET 1 TAB PO DAILY BP (Reported) Metformin HCl (Glucophage) 1,000 MG TABLET 1 TAB PO TID SUGAR (Reported) Review of Systems Review of Systems: Notable for recent dizziness, nausea, vomiting and fatigue. She has chronic deafness. There has been no rash, diplopia, chest pain, vertigo, joint inflammation or abnormal bleeding Past History Travel History Traveled to [place] past 21 day No Medical History Blood Transfusion Hx: No Neurological: deafness EENT: CONGENITAL DEAFNESS Cardiovascular: TRIGLYCERIDEMIA Gastrointestinal: GERD, chronic abdominal pain Hepatic: s/p cholecystectomy Psychiatric: anxiety, depression Endocrine: diabetes Surgical History Surgical History: non-contributory Psychosocial History Where Do You Live? Home Services at Home: HOME PHONE-VIDEO PHONE [phone] [employer] Smoking Status: Former Smoker ETOH Use: denies use Illicit Drug Use: denies illicit drug use Functional Ability ADLs Independent: dressing, eating, toileting, bathing. Ambulation: independent IADLs Independent: shopping, housework, finances, food prep, telephone, transportation , medication admin. Exam & Diagnostic Data Vital Signs and I&O Vital Signs Date Time Temp Pulse Resp B/P Pulse O2 O2 Flow FiO2 Ox Delivery Rate 10/22 1056 111 138/90 10/22 0812 98.0 111 18 138/90 96 Room Air 10/22 0027 98.2 108 16 128/76 96 Room Air 10/22 0000 96 10/21 1641 98.6 108 15 135/78 99 Room Air Intake & Output 10/22 1600 10/22 0800 10/22 0000 Intake Total 890 865 Output Total 450 650 Balance 440 215 Intake, IV 650 400 Intake, Oral 240 465 Number 2 Bowel Movements Output, Urine 450 650 Middle-aged, obese female in no acute distress. She was awake and alert. She was able to follow my instructions using mime. The head was normocephalic. Pupils were equal and reactive. Extraocular movements were full. The face was symmetric. Hearing was grossly impaired bilaterally. Tongue was midline. The motor examination showed no drift of the upper extremities. There was no focal or lateralizing weakness. Deep tendon reflexes were symmetric. Plantar responses were flexor. There was no ataxia on [id number] testing. Gait was not evaluated. The patient would often recoil with uncomfortable stimuli such as plantar stimulation and this would provoke bizarre, brief, nonrhythmic thrashing movements Assessment/Plan Assessment: Tanna has had multiple, bizarre appearing movements which I have witnessed. These do not represent epileptic seizure. They are behavioral in nature and likely represents her discomfort and impaired ability to communicate her wishes. This occurs in the setting of known depression. No anticonvulsant therapy would be recommended. Please feel free to call with any further questions. Recommendations: As above. Consult Acknowledgment - Thank you for your consult request.
--- NOTE | 2016-10-22 15:44 | ELECTROENCEPHALOGRAM REPORT ---
Electroencephalogram Report Electroencephalogram Results Date of service: 10/22/16 Attending MD: DARNELL BLUE M.D [employer] To Door Sales Representative: Usha Rosario EEG Number: [id number] Pertinent Hx/Physical/Neuro Findings/Clin Diagnosis: Seizure versus pseudoseizure Inpatient Medications: Current Medications Sig/Herman Start time Last Medication Dose Route Stop Time Status Admin Acetaminophen 650 MG Q6P PRN 10/19 2330 AC PO Alprazolam 1 MG Q6 10/22 1800 AC PO 10/29 1759 Alprazolam 1 MG TID 10/22 1000 DC 10/22 PO 10/29 0829 1059 Alprazolam 1 MG ONCE ONE 10/22 0400 DC 10/22 PO 10/22 0401 0406 Calcium Carbonate 500 MG DAILY 10/22 1000 AC 10/22 PO 1056 Chlorhexidine 1 GM .STK-MED ONE 10/22 1304 DC Gluconate TOP 10/22 1305 Cholecalciferol 2,000 IU DAILY 10/23 1000 AC PO Cholecalciferol 1,000 IU DAILY 10/22 1145 DC PO Fenofibrate 145 MG DAILY 10/20 1818 AC 10/22 PO 1057 Fluticasone 2 SPRAY DAILY 10/21 1324 AC 10/22 Propionate NENA 1058 Heparin Sodium 5,000 UNIT Q8 10/19 2323 AC 10/22 (Porcine) SC 1358 Insulin Aspart 0 Q4 10/20 1000 AC 10/22 SC 1358 Insulin Detemir 14 UNITS BID 10/20 2200 AC 10/22 SC 1058 Lisinopril 20 MG DAILY 10/21 1325 AC 10/22 PO 1056 Lorazepam 0.5 MG ONCE ONE 10/22 0830 DC 10/22 IV 10/22 0831 0846 Magnesium Oxide 400 MG ONE ONE 10/21 2300 CAN PO 10/21 2301 Magnesium Sulfate 1 GM ONCE ONE 10/22 0015 DC 10/22 Dextrose/Water 100 ML IV 10/22 0414 0110 Melatonin 5 MG AT BEDTIME 10/21 2200 AC 10/21 PO 2208 Metoclopramide HCl 10 MG Q6P PRN 10/21 1445 AC 10/21 IV 1520 Pantoprazole Sodium 40 MG DAILY 10/20 0030 AC 10/22 IV 1056 Potassium Chloride 20 MEQ Q8H 10/20 0615 AC 10/22 Dextrose/Sodium 1,000 ML IV 1358 Chloride Ramelteon 8 MG AT BEDTIME 10/22 2200 AC PO Tetrahydrozoline HCl 1 GTT DAILY 10/22 1330 AC 10/22 OPH 1415 Interpretation: Predominant posterior background rhythm consists of medium voltage 10-12 cps activity. Intermittent bursts of muscle artifacts correspond to patient's shaking movements. No focal or epileptiform features were noted. Hyperventilation and photic stimulation were deferred due to patient cooperation. Impression: Limited study, however, there are no findings to suggest epileptiform activity.
[2016-10-22] MEDS ORDERED: ALPRAZOLAM1 M2 PO (16:11)
[2016-10-22] MEDS ORDERED: OMEPRAZOLE40 M1 PO (16:17)
[2016-10-22] MEDS ORDERED: VITAMIN D31000 UNI2 PO (16:17)
[2016-10-22] MEDS ORDERED: EYE DROPS15 M1 OPH (16:17)
--- NOTE | 2016-10-22 16:19 | Patient Discharge Instructions ---
Discharge Instructions General Discharge Information You were seen/treated for: - High blood sugar - Abdominal pain (gastroparesis) Special Instructions: - Please follow up with PCP in 1 week. - Please follow up with GI, Dr. Griggs to review pathology results. - Please follow up with Dr. Hill regarding your blood sugar control. - Please take your medicatins as prescribed. - Please have the [facility] Inpatient psychiatry see you when you reach the facility. - You have intake appointment with Outpatient psychiatry on Thursday, November 03, 2016, at 1015, at [address] [place] [address] with Yudelka Dominguez LCSW. Please ask the [facility] to call and reschedule the intake appointment if necessary. Diet Continue normal diet: Yes Recommended Diet: Diabetic Activity Full Activity/No Limits: Yes Acute Coronary Syndrome Inclusion Criteria At DC or during hospital stay patient has or had the following: ACS DIAGNOSIS No Discharge Core Measures Meds if any: Prescribed or Continued at Discharge Meds if any: NOT Prescribed or Continued at Discharge Congestive Heart Failure Inclusion Criteria At DC or during hospital stay patient has or had the following: CHF DIAGNOSIS No Discharge Core Measures Meds if any: Prescribed or Continued at Discharge Meds if any: NOT Prescribed or Continued at Discharge Cerebrovascular accident Inclusion Criteria At DC or during hospital stay patient has or had the following: CVA/TIA Diagnosis No Discharge Core Measures Meds if any: Prescribed or Continued at Discharge Meds if any: NOT Prescribed or Continued at Discharge Venous thromboembolism Inclusion Criteria VTE Diagnosis No VTE Type NONE VTE Confirmed by (Test) NONE Discharge Core Measures - Per Current guidelines, there needs to be overlap - treatment for the first 5 days of Warfarin therapy. - If discharged on Warfarin prior to 5 days of - overlap therapy, the patient will need to be - assessed for post discharge needs including - *Post discharge parental anticoagulation - *Warfarin and/or parental anticoagulation education - *Follow up date to check INR post discharge At least 5 days overlap therapy as Inpatient No Meds if any: Prescribed or Continued at Discharge Note: Overlap Therapy is Warfarin and Anticoagulant Meds if any: NOT Prescribed or Continued at Discharge
[2016-10-22] MEDS ORDERED: REGLAN10 M1 PO (16:20)
[2016-10-22 16:25] VITALS: BP 134/80
[2016-10-22 21:05] VITALS: BP 160/94
[2016-10-23 06:43] VITALS: BP 140/68
--- NOTE | 2016-10-23 07:26 | Discharge Summary ---
Visit Information Visit Dates Admission Date: 10/19/16 Discharge Date: 10/30/16 Hospital Course Course Attending Physician: DARNELL BLUE M.D Primary Care Physician: ASHLEY TORRES MD Hospital Course: 61 y/o F with PMHx of T2DM on insulin, congenital deafness and hypertriglyceridemia who presents with abdominal pain, nausea and vomiting x 2 days. Pt was admitted to ICU for insulin drip for presumable DKA (came in with glucose 357, bicarb 20, and had positive ketones. Her gap measured at 21 on admission. VBG showed pH at 7.32. WBC 8.9 and afebrile. Hba1c 10.6. Treated with insulin drip overnight with closure of anion gap and improvement of glucose to 200s. Insulin drip was discontinued and patient was converted to subcutaneous insulin), subsequently transferred to for persistent abdominal pain despite closed AG, and better controlled sugar. As she was nauseous and did not have good/consistent PO intake, IVF was continued and novolog was ordered Q4 rather than before meals. Diet was advanced as tolerated, IVF subsequently discontinued. Dr. Hill from endocrinology is closely following. While inpatient, her insulin regimen was Levemir 15 units BID and Novolog SSI Q4H as follows: for glucose <150 give no insulin, 151-200 give 4 units, 201-250 give 6 units, 251-300 give 8 units, 301-350 give 10 units and 351 -400 give 12 units. Please monitor her blood sugars and adjust her sliding scale accordingly. GI was consulted for the persistent abdominal pain. CT Abdomen/Pelvis W/ IV Contrast unremarkable except for questionable mild wall thickening of the ascending colon. PPI started and to be continued at discharge. GI feels that the abdominal pain is most likely due to gastroparesis, with reglan helping with her nausea and abdominal discomfort. She had upper endoscopy done while inpatient with Dr. Griggs, she needs to follow up with Dr. Griggs for pathology results. Pt subsequently had more noticable twitches,facial grimaces, and jerking movements. We did CT scan of the head which was negative for any acute findings. EEG was negative for epileptiform activity. Neurology consulted and did not recommend anticonvulsant therapy. As per her , this movements and moaning has been chronic, and she needs to do that in order to "vent". He is not concerned at all. As initially xanax was not continued because her said she was not taking it (but urine benzo was positive), benzo withdrawal might have worsened her anxiety and twitches. CT DATA MINER checked, she was prescribed 120 pills of xanax on 09/09/16. Psych was called and also recommended continuing her home xanax (she did receive intermittent xanax before her home dose was started) . It is also felt that she was delirious due to lack of sleep. Melatonin and rozerem started. Per psych, we were to continue her Xanax and monitor for signs and symptoms of withdrawal. Melatonin was subsequently discontinued. She was complaining of eye discomfort, for which she has been taking her brother -in-law's eyedrops. We started her on Visine, during the hospitalization. Vitamin D was found to be low at 9.2, Vit D supplement started. Please follow up with PCP. General Medicine course: Psych consult was placed. Per psych, we were to continue her Xanax and monitor for signs and symptoms of withdrawal. Melatonin was subsequently discontinued. Endocrinology preferred to send the patient out on her sliding scale and hold off on the Meformin because of her GI issues and off Glipizide, because of hypoglycemia. For her gastroparesis, she is being discharged on Reglan 10 mg TID and is instructed to follow up with GI as an outpatient. She is to be discharged on Levemir 15 units daily and Novolog sliding scale before meals. Her fingerstick blood glucose has been well controlled in the hospital. Addendum by Dr. Ward on 10/30/2016 at 10:58 AM. Patient's hospital course was further complicated by an episode of nasal bleeding for which a rapid response was called on 10/28/2016. She was evaluated and started on nasal saline spray as her recent bleed was due to dryness. Patient remained asymptomatic and remained without evidence of bleeding. CVC remain stable She was working up with physical therapy while she was in the hospital. Complications: As above Allergies: Coded Allergies: acetaminophen (From Percocet) (UNKNOWN 10/19/16) ciprofloxacin (From Cipro) (UNKNOWN 10/19/16) diphenhydramine (From Benadryl) (UNKNOWN 10/19/16) loratadine (UNKNOWN 10/19/16) nitrofurantoin (UNKNOWN 10/19/16) oxycodone (From Percocet) (UNKNOWN 10/19/16) celecoxib (From Celebrex) (Intermediate, UPSET STOMACH 10/19/16) cimetidine (Intermediate, UPSET STOMACH 10/19/16) clarithromycin (Intermediate, UPSET STOMACH 10/19/16) codeine (Intermediate, UPSET STOMACH 10/19/16) fluconazole (Intermediate, UPSET STOMACH 10/19/16) fluoxetine (From Prozac) (Intermediate, UPSET STOMACH 10/19/16) gabapentin (Intermediate, UPSET STOMACH 10/19/16) lansoprazole (Intermediate, UPSET STOMACH 10/19/16) mycophenolate mofetil (Intermediate, UPSET STOMACH 10/19/16) oxaprozin (From Daypro) (Intermediate, UPSET STOMACH 10/19/16) lorazepam (Mild, GI DISTRESS 10/20/16) Penicillins (UPSET STOMACH 10/19/16) buspirone (10/21/16) ranitidine (UPSET STOMACH 10/19/16) Significant Procedures: EEG Interpretation: Predominant posterior background rhythm consists of medium voltage 10-12 cps activity. Intermittent bursts of muscle artifacts correspond to patient's shaking movements. No focal or epileptiform features were noted. Hyperventilation and photic stimulation were deferred due to patient cooperation. Impression: Limited study, however, there are no findings to suggest epileptiform activity. Endoscopy Procedure Medical History: unchanged (see meditech consult) Mental Status: alert/oriented Heart/Lung Eval Prior to Sedation: within normal limits Candidate for Sedation? Yes Procedure Date: 10/22/16 Procedure Type: EGD w/biopsy Coordinate Measuring Machine Operator: Jose Griggs MD ASA Classification: III Indications: Nausea and vomiting, abdominal pain. Instrument: diagnostic gastroscope Meds Received: MAC Patient's Tolerance: good Complications: none Extent Reached: second part of duodenum Procedure: After getting written informed consent the patient was placed in the left lateral decubitus position with pulse oximetry, cardiac monitoring, and supplemental oxygen given. A bite block was inserted and IV sedation was given until the desired effect was achieved. A high definition upper Olympus endoscope was then inserted into the mouth and advanced to the second portion of the duodenum with little difficulty. Retroflexed views and photodocumentation was obtained. Findings: Esophagus: There was some adherent secretions and food to the esophageal mucosa, but this was easily washed away and the underlying esophageal mucosa was grossly normal in appearance. Random biopsies were obtained from the esophageal mucosa with cold biopsy forceps and were sent to pathology for further evaluation. The Z line was located 40 cm from the incisors and was grossly normal appearance. Stomach: The gastric mucosa was grossly normal in appearance. There were no ulcers, erosions, or masses appreciated. Distention was normal, but peristalsis appeared decreased in the was a scant amount of leftover food and bile. The pylorus was patent and easily traversable by the upper endoscope. Retroflexed views were normal and did not reveal a significant hiatal hernia. Random biopsies were obtained from the antrum with cold biopsy forceps and were sent pathology for further evaluation. Duodenum: The duodenal bulb, sweep, and folds are grossly normal in appearance. Impression: 1. Suggestion of gastroparesis status post antral biopsies. 2. Secretions and food in upper esophagus status post biopsies. Recommendations: 1. Continue IV Protonix for now. 2. Administer antiemetics with either Zofran or Reglan as needed. 3. Follow fingersticks and control with insulin as closely as possible. 4. She should follow up the pathology results me as an outpatient. 5. Advance diet as tolerated and once she is tolerating a by mouth diet would change her over to an oral PPI. EXAM TYPE: CAT - CT HEAD WO IV CONTRAST EXAMINATION: CT HEAD WITHOUT CONTRAST CLINICAL INFORMATION: Possible new seizures with twitching. COMPARISON: CT head 04/14/2016. TECHNIQUE: Contiguous axial imaging was performed from the skull base to vertex without intravenous administration of contrast. DLP: 886.89 mGy-cm FINDINGS: There is no evidence of acute intracranial hemorrhage or territorial infarction. No abnormal mass effect or midline shift is seen. Maloney to white matter differentiation is well preserved. No extra-axial fluid collections are identified. There is mild commensurate prominence of the ventricles and sulci consistent with mild diffuse volume loss. Attenuation of the brain parenchyma is unremarkable. The osseous structures and soft tissues are normal; there is mild hyperostosis frontalis interna. The mastoid air cells are well-aerated. The frontal sinuses are not pneumatized. The paranasal sinuses are well-aerated. IMPRESSION: 1. There are no acute intracranial findings. 2. There are changes consistent with mild diffuse volume loss. DICTATED BY: CASSIA SANDHU MD DATE/TIME DICTATED:10/22/161046 EXAM TYPE: CAT - CT ABD & PELVIS W IV CONTRAST EXAMINATION: CT ABDOMEN AND PELVIS WITH CONTRAST CLINICAL INFORMATION: Abdominal pain, nausea and vomiting. COMPARISON: 09/22/2006 TECHNIQUE: Multidetector volumetric imaging was performed of the abdomen and pelvis before and after the IV administration of 95 mL of Optiray 320 intravenous contrast. Sagittal and coronal reformatted images were obtained on the technologist's workstation. DLP: 780 mGy-cm FINDINGS: LUNG BASES: Linear scarring at the right lung base. LIVER, GALLBLADDER, AND BILIARY TREE: Mild diffuse fatty infiltration of the liver. The gallbladder has been removed. PANCREAS: Unremarkable. SPLEEN: Unremarkable. ADRENAL GLANDS: There is a 1.1 cm nodule of the left adrenal gland which measured 0.7 cm on the previous study. This is indeterminate although given the density measurements, does not represent a lipid-rich adenoma. KIDNEYS AND URETERS: The kidneys are normal in size, shape, and attenuation. No hydronephrosis, hydroureter, or calculi seen. Bilateral perinephric stranding which appears symmetric and is nonspecific. BLADDER: Unremarkable. GASTROINTESTINAL TRACT: Mild wall thickening of the ascending colon which may be accentuated by lack of distention. Otherwise unremarkable with no evidence of obstruction. ABDOMINAL WALL: No significant hernia is appreciated. LYMPH NODES: Normal. VASCULAR: There are atherosclerotic calcifications of the distal abdominal aorta. No aneurysmal dilatation. PELVIC VISCERA: Unremarkable. OSSEOUS STRUCTURES: Unremarkable. IMPRESSION: Questionable mild wall thickening of the ascending colon which may be accentuated by lack of distention. There is a 1.1 cm left adrenal nodule which measured 0.7 cm on the 2006 study. This is stable since the chest CT dated 07/29/2016. There is bilateral perinephric stranding which appears symmetric and is nonspecific. No hydronephrosis. Mild diffuse fatty infiltration of the liver. DICTATED BY: COLLEEN LEWIS MD DATE/TIME DICTATED:10/20/161425 EXAM TYPE: RAD - XRY-CHEST XRAY, PA AND LATERAL EXAMINATION: XR CHEST CLINICAL INFORMATION: Diabetic ketoacidosis. COMPARISON: None recent. TECHNIQUE: AP and lateral semierect view of the chest. FINDINGS: The heart is normal in size. There is no evidence of acute pulmonary parenchymal or pleural disease. There is calcific tendinitis involving the right shoulder. IMPRESSION: No acute disease in the chest. DICTATED BY: JOSEY SMART MD DATE/TIME DICTATED:10/20/162154 Pertinent Lab Results: Laboratory Tests 10/28 10/28 10/28 1420 1420 0620 Chemistry Sodium (137 - 145 mmol/L) 138 138 Potassium (3.5 - 5.1 mmol/L) 4.0 4.4 Chloride (98 - 107 mmol/L) 98 102 Carbon Dioxide (22 - 30 mmol/L) 27 25 Anion Gap (5 - 16) 13 11 BUN (7 - 17 mg/dL) 12 13 Creatinine (0.5 - 1.0 mg/dL) 1.0 0.9 Estimated GFR (>60 ml/min) 57 L > 60 BUN/Creatinine Ratio (7 - 25 %) 12.0 14.4 Magnesium (1.6 - 2.3 mg/dL) 1.7 Prolactin (3.0 - 18.6 ng/mL) Cancelled 21.4 H Hematology CBC w Diff NO MAN DIFF REQ WBC (4.8 - 10.8 /CUMM) 6.8 RBC (4.20 - 5.40 /CUMM) 3.88 L Hgb (12.0 - 16.0 G/DL) 11.9 L Hct (37 - 47 %) 35.4 L MCV (81.0 - 99.0 FL) 91.3 MCH (27.0 - 31.0 PG) 30.7 RDW (11.5 - 14.5 %) 13.4 Plt Count (130 - 400 /CUMM) 269 MPV (7.4 - 10.4 FL) 8.1 Gran % (42.2 - 75.2 %) 57.8 Lymphocytes % (20.5 - 51.1 %) 31.5 Monocytes % (1.7 - 9.3 %) 7.9 Eosinophils % (0 - 5 %) 2.4 Basophils % (0.0 - 2.0 %) 0.4 Absolute Granulocytes (1.4 - 6.5 /CUMM) 3.9 Absolute Lymphocytes (1.2 - 3.4 /CUMM) 2.1 Absolute Monocytes (0.10 - 0.60 /CUMM) 0.5 Absolute Eosinophils (0.0 - 0.7 /CUMM) 0.2 Absolute Basophils (0.0 - 0.2 /CUMM) 0 PUBS MCHC (33.0 - 37.0 G/DL) 33.7 Vital Signs Date Time Temp Pulse Resp B/P Pulse O2 O2 Flow FiO2 Ox Delivery Rate 10/24 0959 86 126/60 10/24 0704 97.6 86 20 126/60 97 Room Air 10/23 2229 98.6 100 21 146/80 96 Room Air 10/23 1132 100 152/80 10/23 0643 98.5 105 21 140/68 95 Room Air 10/22 2105 98.3 115 18 160/94 94 Room Air 10/22 1625 98.7 106 18 134/80 96 Room Air 10/22 1056 111 138/90 10/22 0812 98.0 111 18 138/90 96 Room Air 10/22 0027 98.2 108 16 128/76 96 Room Air 10/22 0000 96 10/21 1641 98.6 108 15 135/78 99 Room Air 10/21 1432 102 18 110/70 10/21 1428 102 110/70 10/21 0805 98.6 98 18 142/80 96 Room Air 10/21 0800 Room Air 10/20 1600 97.8 98 20 120/74 96 Room Air 10/20 0800 97.7 98 18 122/86 95 Room Air Room Air 10/20 0400 98 Room Air 10/20 0100 98 Room Air 10/20 0100 98.3 116 30 128/80 98 Room Air 10/19 2320 97.8 115 18 118/66 97 Room Air 10/19 2116 98.4 115 18 124/76 98 Room Air 10/19 2102 Room Air Last 24 Hours I&Os 10/24 1600 10/24 0800 10/24 0000 Intake Total 800 600 Output Total 1650 Balance 800 -1050 Intake, Oral 800 600 Output, Urine 1650 Microbiology Date/Time Procedure - Status Source Growth 10/21 0900 Urine Culture - COMP URINE ROUT 10/20 1044 Surveillance Culture - CAN UPPER RESP Cancelled: SPECIMEN NOT RECEIVED IN LABORATORY 10/20 1044 Surveillance Culture - CAN GI Cancelled: SPECIMEN NOT RECEIVED IN LABORATORY Orders Procedure Date/time Status Anticipated Discharge 10/24 UNK Active Change service to 10/23 0737 Active CBC WITHOUT DIFFERENTIAL 10/23 0600 Complete Therapeutic Activities 10/23 UNK Complete PT EVAL MOD COMPLEX 30 MIN 10/23 UNK Complete Gait Training 10/23 UNK Complete SUB HSP CARE (35 MIN) 10/23 UNK Complete House Staff 10/23 UNK Active Anticipated Discharge 10/23 UNK Active Nursing Mis 10/23 UNK Active Consistent Carbohydrate 3 10/22 L Active Nothing by Mouth 10/22 B Complete PATHOLOGY SPECIMEN 10/22 1303 Complete Change service to 10/22 1237 Active Change service to 10/22 1229 Active VIT D 25 HYDROXY 10/22 0700 Complete THYROID STIMULATING HORMONE 10/22 0700 Complete FREE T4 10/22 0700 Complete CALCIUM 10/22 0700 Complete VITAMIN B12 10/22 0700 Complete ALBUMIN 10/22 0700 Complete PHOSPHORUS 10/22 0600 Complete MAGNESIUM 10/22 0600 Complete GLUCOSE 10/22 0600 Complete BASIC ELECTROLYTES PLUS BUN&CR 10/22 0600 Complete PT Evaluate & Treat 10/22 UNK Active Lab Add-on Test 10/22 UNK Active Nursing [facility] 10/22 UNK Active ELECTROENCEPHALOGRAM 10/22 UNK Complete MISSING MEDICATION FORM 10/22 UNK Active PSYCHIATRIC CONSULT 10/22 UNK Active Consistent Carbohydrate 3 10/21 D Complete PHOSPHORUS 10/21 1800 Complete MAGNESIUM 10/21 1800 Complete GLUCOSE 10/21 1800 Complete BASIC ELECTROLYTES PLUS BUN&CR 10/21 1800 Complete Disposition Summary Disposition Principal Diagnosis: Diabetic ketoacidosis Additional Diagnosis: Gastroparesis GERD Hyperlipidemia T2 DM on insulin and metformin Congenital deafness Depression Chronic abdominal pain Discharge Disposition: STR Discharge Instructions General Discharge Information Code Status: Full Code Patient's Diet: Diabetic diet Patient's Activity: As tolerated Follow-Up Instructions/Appts: You were seen/treated for: - High blood sugar - Abdominal pain (gastroparesis) Special Instructions: - Please follow up with PCP in 1 week. - Please follow up with GI, Dr. Griggs to review pathology results. - Please follow up with Dr. Hill regarding your blood sugar control. - Please monitor her blood sugars and adjust sliding sclae accordingly. Medications at Discharge Discharge Medications: Stop taking the following medications: Metformin HCl (Glucophage) 1,000 MG TABLET ORAL THREE TIMES DAILY Famotidine (Pepcid) 40 MG TABLET ORAL DAILY Insulin Detemir (Levemir Flextouch) 100 UNIT/ML (3 ML) INSULN.PEN Inject into fatty tissue Every night Glipizide (Glipizide) 5 MG TABLET ORAL TWICE DAILY Continue taking these medications: Fenofibrate (Fenofibrate) 160 MG TABLET 1 Tablet ORAL DAILY Comments: Last Taken: 10/30/16 Time: 10:15 AM Folic Acid (Folic Acid) 1 MG TABLET 1 Tablet ORAL DAILY Comments: DID NOT RECEIVE WHILE IN HOSPITAL Alprazolam (Alprazolam) 1 MG TABLET 1 Tablet ORAL EVERY SIX HOURS NEEDED as needed for anxiety Qty = 120 Comments: Last Taken: 10/30/16 Time: 12:00 PM Lisinopril (Lisinopril) 20 MG TABLET 1 Tablet ORAL DAILY Comments: Last Taken: 10/29/16 Time: 11:00 AM Fluticasone Propionate (Fluticasone Propionate) 50 MCG/ACTUATION SPRAY.SUSP 2 [place] Both sides of nose DAILY Comments: Last Taken: 10/30/16 Time: 10:15 AM Start taking the following new medications: Sodium Chloride ([place]) 0.65 % SPRAY 2 [place] In the nose Every 4 hours Qty = 1 No Refills Comments: Last Taken: 10/30/16 Time: 10:15 AM Ramelteon (Rozerem) 8 MG TABLET 2 Tablet ORAL BEDTIME as needed for sleep Qty = 30 No Refills Comments: Last Taken: 10/29/16 Time: 9:15 PM Insulin Aspart, Recombinant (Novolog Flexpen) 100 UNIT/ML INSULN.PEN 0 Inject into fatty tissue 3 TIMES DAILY BEFORE MEALS Qty = 1 Refills = 2 Instructions: Please take blood sugar insulin 80-150mg/dl-four units 151-200mg/dl-five units 201-250mg/dl-six units 251-300mg/dl-seven units 301-350mg/dl-eight units 351-400mg/dl-nine units >400mg/dl-nine units. call MD Comments: Last Taken: 10/03/16 Time: 12:00 PM Omeprazole (Omeprazole) 40 MG CAPSULE.DR 1 Capsule ORAL DAILY Qty = 15 No Refills Comments: Last Taken: 10/30/16 Time: 6:00 AM Insulin Detemir (Levemir Flextouch) 100 UNIT/ML (3 ML) INSULN.PEN 15 Units Inject into fatty tissue TWICE DAILY Days = 30 No Refills Comments: Last Taken: 10/30/16 Time: 10:15 AM Metoclopramide HCl (Reglan) 10 MG TABLET 1 Tablet ORAL THREE TIMES DAILY as needed for nausea and vomiting Qty = 90 No Refills Instructions: 30 minutes before meals and bedtime Comments: Last Taken: 10/23/16 Time: 6:00 AM Copies To: STAR MARK,BARI Connell; DEO MARK,WILLIAM Victor; CHI GRIGGS MD, MD,ASHLEY Cantu
--- NOTE | 2016-10-23 07:38 | PN- Housestaff ---
CARLY MURRAY 10/23/16 0736: Subjective Follow-up For: DKA Subjective: Patient was comfortable this morning. It was difficult to communicate with the patient, but with some success, communicated about symptoms. Did not have any complaints. Vitals were stable overnight. Blood sugars 176, 266. Review of Systems Constitutional: Reports: see HPI. Objective Last 24 Hrs of Vital Signs/I&O Vital Signs Date Time Temp Pulse Resp B/P Pulse O2 O2 Flow FiO2 Ox Delivery Rate 10/23 0643 98.5 105 21 140/68 95 Room Air 10/22 2105 98.3 115 18 160/94 94 Room Air 10/22 1625 98.7 106 18 134/80 96 Room Air 10/22 1056 111 138/90 10/22 0812 98.0 111 18 138/90 96 Room Air Intake & Output 10/23 0800 10/23 0000 10/22 1600 Intake Total 960 360 920 Output Total Balance 960 360 920 Intake, IV 800 Intake, Oral 960 360 120 Physical Exam General Appearance: No Acute Distress Other Physical Findings: General Exam: AAOx3, Mild acute distress, Skin: No rashes, no breakdown HEENT: PERRLA, EOMI, skin lesions from bite. Neck: Supple, No JVD No cervical lymphadenopathy CVS: Reg Rate, Normal S1,S2, No MGR Resp: Normal air entry, no ronchi/rales Abdomen: Soft, No tenderness, Normal Bowel Sounds Neuro: Normal Speech, Strength 5/5 b/l x 4 extremities, Sensation intact, CN III -XII NL, Reflexes 2+ Extremities: No cyanosis, pedal edema. Current Medications: Current Medications Sig/Herman Start time Last Medication Dose Route Stop Time Status Admin Acetaminophen 650 MG Q6P PRN 10/19 2330 AC PO Alprazolam 1 MG Q6 10/22 1800 AC 10/23 PO 10/29 1759 0538 Alprazolam 1 MG TID 10/22 1000 DC 10/22 PO 10/29 0829 1059 Artificial Tears 2 GTT 4 TIMES/DAY 10/22 2300 AC 10/22 OPH 2344 Calcium Carbonate 500 MG DAILY 10/22 1000 AC 10/22 PO 1056 Chlorhexidine 1 GM .STK-MED ONE 10/22 1304 DC Gluconate TOP 10/22 1305 Cholecalciferol 2,000 IU DAILY 10/23 1000 AC PO Cholecalciferol 1,000 IU DAILY 10/22 1145 DC 10/22 PO 1145 Fenofibrate 145 MG DAILY 10/20 1818 AC 10/22 PO 1057 Fluticasone 2 SPRAY DAILY 10/21 1324 AC 10/22 Propionate NENA 1058 Heparin Sodium 5,000 UNIT Q8 10/19 2323 AC 10/22 (Porcine) SC 1358 Insulin Aspart 0 Q4 10/20 1000 AC 10/23 SC 0555 Insulin Detemir 14 UNITS BID 10/20 2200 AC 10/22 SC 2153 Lisinopril 20 MG DAILY 10/21 1325 AC 10/22 PO 1056 Lorazepam 0.5 MG ONCE ONE 10/22 0830 DC 10/22 IV 10/22 0831 0846 Melatonin 5 MG AT BEDTIME 10/21 2200 AC 10/22 PO 2151 Metoclopramide HCl 10 MG Q6P PRN 10/21 1445 AC 10/23 IV 0550 Omeprazole 40 MG DAILY AC 10/23 0745 UNVr PO Omeprazole 40 MG DAILY AC 10/23 0700 CAN PO Pantoprazole Sodium 40 MG DAILY 10/23 1000 CAN IV Pantoprazole Sodium 40 MG DAILY 10/20 0030 DC 10/22 IV 1056 Potassium Chloride 20 MEQ Q8H 10/20 0615 DC 10/22 Dextrose/Sodium 1,000 ML IV 1358 Chloride Ramelteon 8 MG AT BEDTIME 10/22 2200 AC 10/22 PO 2151 Tetrahydrozoline HCl 1 GTT DAILY 10/22 1330 AC 10/22 OPH 1415 Last 24 Hrs of Lab/Luis Results Last 24 Hrs of Labs/Mics: Laboratory Tests 10/23/16 0620: CBC w Diff Pending, WBC Pending, RBC Pending, Hgb Pending, Hct Pending, MCV Pending, MCH Pending, RDW Pending, Plt Count Pending, MPV Pending, PUBS MCHC Pending Assessment/Plan Assessment: 61 y/o F with PMHx of T2DM on insulin, congenital deafness and hypertriglyceridemia who presents with abdominal pain, nausea and vomiting x2 days. Pt was admitted to ICU for insulin drip, subsequently transferred to [facility] for persistent abdominal pain despite closed AG, and better controlled sugar. Problem List: # DKA Resolved. Anion gap closed. Blood sugar levels are adequately contolled. Currently on insulin sliding scale as recommended by and 14 units of Levemir.. To be discharged home with both long-acting and short-acting insulin. # GastroparesisPresented with nausea, vomiting and abdominal pain. Came in with glucose 357, bicarb 20, and had positive ketones. Her gap measured at 21 on admission. VBG showed pH at 7.32. WBC 8.9 and afebrile.Treated with insulin drip overnight with closure of anion gap and improvement of glucose to 200s. Insulin drip was discontinued and patient was converted to subcutaneous insulin. No obvious trigger identified for the DKA. CT Abdomen/Pelvis W/ IV Contrast unremarkable except for questionable mild wall thickening of the ascending colon. GI consulted to rule out intraabdominal pathology. Continue IV protonix (home famotidine 40 mg). IV reglan for nausea .Anti-LISA ordered to evaluate for T1DM. Hold home glipizide 5 mg bid,metformin 1000mg tid, levemir flex touch 50 units before bedtime. # Abnormal movements-Non charecterized. Pt takes xanax with urine benzo was positive 722H Pt's jerking movements has been chronic as per her . Continue xanax 1 mg q6CT head negative for acute findings .EEG-no findings of any epileptiform activity.Await psych recommendation.Rozerem 8 mg at bedtime DVT ppx: Mech and Pharm FULL CODE Problem List: 1. Gastroparesis 2. Abdominal pain 3. Hypertriglyceridemia Pain Ratin Pain Location: Abdomen Pain Goal: Pain 4 or less Pain Plan: Tylenol when necessary Tomorrow's Labs & Rationales: No labs necessary. Patient stable. EPHRAIM MARK,NAM 10/23/16 1309: Attending MD Review Statement Attending Statement Attending MD Statement: examined this patient, discuss w/resident/PA/TRACTOR DRILL OPERATOR, agreed w/resident/PA/TRACTOR DRILL OPERATOR, reviewed EMR data (avail), discussed with nursing, discussed with case mgmt, reviewed images, amended to note Attending Assessment/Plan: Patient seen and examined, she's not able to speak normally. She speaks some words and the rest she uses sign language. She was originally admitted with diabetic ketoacidosis and after being stabilized she is transferred to the medicine floor. She continues to have those bizarre movements of her arms and legs which are considered to be psychological in nature. Vital Signs Date Time Temp Pulse Resp B/P Pulse O2 O2 Flow FiO2 Ox Delivery Rate 10/23 1132 100 152/80 10/23 0643 98.5 105 21 140/68 95 Room Air 10/22 2105 98.3 115 18 160/94 94 Room Air 10/22 1625 98.7 106 18 134/80 96 Room Air on exam; awake, nad. cv; s1, s2, rrr. resp; clear abd; soft, nt, bs+ ext; no edema. Laboratory Tests 10/23 619 Hematology CBC w Diff NO MAN DIFF REQ WBC (4.8 - 10.8 /CUMM) 9.8 RBC (4.20 - 5.40 /CUMM) 4.24 Hgb (12.0 - 16.0 G/DL) 13.0 Hct (37 - 47 %) 39.3 MCV (81.0 - 99.0 FL) 92.5 MCH (27.0 - 31.0 PG) 30.6 RDW (11.5 - 14.5 %) 13.4 Plt Count (130 - 400 /CUMM) 246 MPV (7.4 - 10.4 FL) 8.7 Gran % (42.2 - 75.2 %) 70.2 Lymphocytes % (20.5 - 51.1 %) 21.5 Monocytes % (1.7 - 9.3 %) 6.8 Eosinophils % (0 - 5 %) 1.4 Basophils % (0.0 - 2.0 %) 0.1 Absolute Granulocytes (1.4 - 6.5 /CUMM) 6.9 H Absolute Lymphocytes (1.2 - 3.4 /CUMM) 2.1 Absolute Monocytes (0.10 - 0.60 /CUMM) 0.7 H Absolute Eosinophils (0.0 - 0.7 /CUMM) 0.1 Absolute Basophils (0.0 - 0.2 /CUMM) 0 PUBS MCHC (33.0 - 37.0 G/DL) 33.0 A/P; 61 y/o F with PMHx of T2DM on insulin, congenital deafness and hypertriglyceridemia who presents with abdominal pain, nausea and vomiting x2 days, originally admitted to ICU with DKA requiring insulin drip. After stabilized she was transferred to telemetry and then to general medicine floor. Also has been evaluated by GI and neurology. Had endoscopy done which was consistent with gastroparesis which was giving her abdominal pain. Neurology was consulted for these bizarre extremity movements which neurology did not think had anything to do with the seizures. She probably has these movements secondary to psychological reasons. At this point he is being followed by endocrinology and insulin has been adjusted. Dr. Hill recommends to watch her 1 more day on the current regimen of insulin. She has been treated with PPI for the gastroparesis. Continue the rest of her medications. Encourage out of bed to chair and ambulation. DVT prophylaxis: Heparin subcutaneous. Discussed with patient's at bedside. A/P; 61 y/o F with PMHx of T2DM on insulin, congenital deafness and hypertriglyceridemia who presents with abdominal pain, nausea and vomiting x2 days, originally admitted to ICU with DKA requiring insulin drip. After stabilized she was transferred to telemetry and then to general medicine floor. Also has been evaluated by GI and neurology. Had endoscopy done which was consistent with gastroparesis which was giving her abdominal pain. Neurology was consulted for these bizarre extremity movements which neurology did not think had anything to do with the seizures. She probably has these movements secondary to psychological reasons. At this point he is being followed by endocrinology and insulin has been adjusted. Dr. Hill recommends to watch her 1 more day on the current regimen of insulin. She has been treated with PPI for the gastroparesis. Continue the rest of her medications. Encourage out of bed to chair and ambulation. DVT prophylaxis: Heparin subcutaneous. Discussed with patient's at bedside.
--- NOTE | 2016-10-23 07:40 | PN- Diabetes ---
Assessment/Plan Assessment: The patient is currently off IV fluids. However her insulin was not changed and she is still receiving every 4 hour NovoLog which runs the risk of unopposed insulin causing hypoglycemia. The patient's blood sugar this morning is 183. She is presently on Levemir 14 units twice a day. Review of the records reveals that this patient was on Levemir 50 units once a day prior to admission along with glipizide 5 mg twice a day and metformin 1000 mg twice a day. She came in with uncontrolled diabetes with mild ketosis with a carbon dioxide of 20 and then anion gap of 21. Anti-mehdi antibody is pending. Plan: Suggest that we change the patient's NovoLog coverage to 3 times a day before meals only. NovoLog coverage before meals should be 80-150 give 4 units NovoLog , 151-200 give 5 units NovoLog, to what wanted to 50 give 6 units NovoLog, 251- 300 give 7 units NovoLog, 301-350 give 8 units NovoLog, 351 of 100 give 9 units NovoLog. She should be kept on Levemir 14 units twice a day. We should observe her in the hospital one more day to see how this regimen is working. The patient should be kept off metformin which could upset her stomach further and also kept off glipizide. We are awaiting the results of the anti-mehdi antibody. We should speak with her and her to see if she can follow this basal bolus regimen at home would which would bring about the best control of her diabetes and make her feel better. However if this cannot be accomplished then we would have to consider 70/30 NovoLog mix 20 units before breakfast and 20 units before dinner every day. Subjective Subjective: Still has stomach pain Review of Systems Constitutional: Denies: chills, fever. Cardiovascular: Denies: chest pain. Gastrointestinal: Reports: abdominal pain, nausea. Skin: Reports: no symptoms. Objective Last 24 Hrs of Vital Signs/I&O Vital Signs Date Time Temp Pulse Resp B/P Pulse O2 O2 Flow FiO2 Ox Delivery Rate 10/23 0643 98.5 105 21 140/68 95 Room Air 10/22 2105 98.3 115 18 160/94 94 Room Air 10/22 1625 98.7 106 18 134/80 96 Room Air 10/22 1056 111 138/90 10/22 0812 98.0 111 18 138/90 96 Room Air Intake & Output 02/23 0800 10/23 0000 10/22 1600 Intake Total 960 360 920 Output Total Balance 960 360 920 Intake, IV 800 Intake, Oral 960 360 120 Vital Signs Date Time Temp Pulse Resp B/P Pulse O2 O2 Flow FiO2 Ox Delivery Rate 10/23 0643 98.5 105 21 140/68 95 Room Air 10/22 2105 98.3 115 18 160/94 94 Room Air 10/22 1625 98.7 106 18 134/80 96 Room Air 10/22 1056 111 138/90 10/22 0812 98.0 111 18 138/90 96 Room Air Intake & Output 10/23 0800 10/23 0000 10/22 1600 Intake Total 960 360 920 Output Total Balance 960 360 920 Intake, IV 800 Intake, Oral 960 360 120 Physical Exam General Appearance: alert, awake, anxious Head: normal appearance Neck: normal inspection Respiratory: normal breath sounds Cardiovascular: regular rate/rhythm Abdomen: normal bowel sounds, soft Extremities: normal inspection Current Medications: Current Medications Sig/Herman Start time Last Medication Dose Route Stop Time Status Admin Acetaminophen 650 MG Q6P PRN 10/19 2330 AC PO Alprazolam 1 MG Q6 10/22 1800 AC 10/23 PO 10/29 1759 0538 Alprazolam 1 MG TID 10/22 1000 DC 10/22 PO 10/29 0829 1059 Artificial Tears 2 GTT 4 TIMES/DAY 10/22 2300 AC 10/22 OPH 2344 Calcium Carbonate 500 MG DAILY 10/22 1000 AC 10/22 PO 1056 Chlorhexidine 1 GM .STK-MED ONE 10/22 1304 DC Gluconate TOP 10/22 1305 Cholecalciferol 2,000 IU DAILY 10/23 1000 AC PO Cholecalciferol 1,000 IU DAILY 10/22 1145 DC 10/22 PO 1145 Fenofibrate 145 MG DAILY 10/20 1818 AC 10/22 PO 1057 Fluticasone 2 SPRAY DAILY 10/21 1324 AC 10/22 Propionate NENA 1058 Heparin Sodium 5,000 UNIT Q8 10/19 2323 AC 10/22 (Porcine) SC 1358 Insulin Aspart 0 Q4 10/20 1000 AC 10/23 SC 0555 Insulin Detemir 14 UNITS BID 10/20 2200 AC 10/22 SC 2153 Lisinopril 20 MG DAILY 10/21 1325 AC 10/22 PO 1056 Lorazepam 0.5 MG ONCE ONE 10/22 0830 DC 10/22 IV 10/22 0831 0846 Melatonin 5 MG AT BEDTIME 10/21 2200 AC 10/22 PO 2151 Metoclopramide HCl 10 MG Q6P PRN 10/21 1445 AC 10/23 IV 0550 Omeprazole 40 MG DAILY AC 10/23 0745 UNVr PO Omeprazole 40 MG DAILY AC 10/23 0700 CAN PO Pantoprazole Sodium 40 MG DAILY 10/23 1000 CAN IV Pantoprazole Sodium 40 MG DAILY 10/20 0030 DC 10/22 IV 1056 Potassium Chloride 20 MEQ Q8H 10/20 0615 DC 10/22 Dextrose/Sodium 1,000 ML IV 1358 Chloride Ramelteon 8 MG AT BEDTIME 10/22 2200 AC 10/22 PO 2151 Tetrahydrozoline HCl 1 GTT DAILY 10/22 1330 AC 10/22 OPH 1415 Findings Pertinent Lab/Luis Results: Laboratory Tests 10/23/16 0620: CBC w Diff Pending, WBC Pending, RBC Pending, Hgb Pending, Hct Pending, MCV Pending, MCH Pending, RDW Pending, Plt Count Pending, MPV Pending, PUBS MCHC Pending
[2016-10-23 07:56] LABS: ABSOLUTE BASOPHIL COUNT 0 /CUMM (0.0-0.2); ABSOLUTE EOSINOPHIL COUNT 0.1 /CUMM (0.0-0.7); ABSOLUTE GRANULOCYTE CT 6.9 /CUMM (1.4-6.5); ABSOLUTE LYMPH COUNT 2.1 /CUMM (1.2-3.4); ABSOLUTE MONOCYTE COUNT 0.7 /CUMM (0.10-0.60); BASOPHIL % 0.1 % (0.0-2.0); EOSINOPHIL % 1.4 % (0-5); GRANULOCYTE % 70.2 % (42.2-75.2); HEMATOCRIT 39.3 % (37-47); MEAN CORPUSCULAR HGB 30.6 PG (27.0-31.0); MEAN CORPUSCULAR VOLUME 92.5 FL (81.0-99.0); MEAN PLATELET VOLUME 8.7 FL (7.4-10.4); PLATELET COUNT 246 /CUMM (130-400); RBC DISTRIBUTION WIDTH 13.4 % (11.5-14.5); RED BLOOD CELL CT 4.24 /CUMM (4.20-5.40); WHITE BLOOD CELL COUNT 9.8 /CUMM (4.8-10.8)
[2016-10-23 14:47] VITALS: BP 132/74
--- NOTE | 2016-10-23 16:22 | Cons- Psychiatry ---
Psychiatric Consult Date of Consult: 10/23/16 Reason for Consult: "delirium?" History of Present Illness: CC: "Electricity" HPI: 61-year-old female brought in to [facility] emergency department on 10/19/2016 with abdominal pain, n/v, and loose stools. Subsequently diagnosed with diabetic ketoacidosis and admitted to the medical service. Patient was alert and oriented on admission but subsequently displayed altered mental status during the night of 10/21 responding to visual hallucinations, screaming out, and displaying seizure-like activity. It is reported that during this time the patient had not slept at all during hospitalization. At that point she had not been receiving her regularly scheduled Xanax which she receives 1 mg 4 times a day ordered by her primary care physician. Review of [place] prescription monitoring program reveals that patient has been on this medication at this dose for at least 3 years. Per nursing report the patient has been displaying odd twitching behaviors and complains of a "feeling of electricity" whenever anyone touches her. Attempted to call , Srinivas ([phone]) for collateral information today but he was not available. Briefly spoke to patient's mother who was unable to provide information on baseline functioning. PMH: Please see the H&P for a complete listing GERD, hyperlipidemia, T2 DM on insulin and metformin, congenital deafness, chronic abdominal pain Past Psych History: -Outpatient She is prescribed Xanax 1mg QID by her primary care provider -Inpatient Unobtained Family Psych History: Unobtained Substance History Unobtained -Treatment Unobtained Family Substance History: Unobtained Social: . Lives with . High school graduate, [employer]. Formerly worked at [employer]. Abuse/Trauma: Unobtained Current Home Psychotropic Medications: Xanax 1 mg 4 times a day Current Hospital Psychotropic Medications: Med Alprazolam 1 MG PO Q6 10/22/16 1800 Allergies: Coded Allergies: acetaminophen (From Percocet) (UNKNOWN 10/19/16) ciprofloxacin (From Cipro) (UNKNOWN 10/19/16) diphenhydramine (From Benadryl) (UNKNOWN 10/19/16) loratadine (UNKNOWN 10/19/16) nitrofurantoin (UNKNOWN 10/19/16) oxycodone (From Percocet) (UNKNOWN 10/19/16) celecoxib (From Celebrex) (Intermediate, UPSET STOMACH 10/19/16) cimetidine (Intermediate, UPSET STOMACH 10/19/16) clarithromycin (Intermediate, UPSET STOMACH 10/19/16) cocaine (Intermediate, UPSET STOMACH 10/19/16) codeine (Intermediate, UPSET STOMACH 10/19/16) fluconazole (Intermediate, UPSET STOMACH 10/19/16) fluoxetine (From Prozac) (Intermediate, UPSET STOMACH 10/19/16) gabapentin (Intermediate, UPSET STOMACH 10/19/16) lansoprazole (Intermediate, UPSET STOMACH 10/19/16) mycophenolate mofetil (Intermediate, UPSET STOMACH 10/19/16) oxaprozin (From Daypro) (Intermediate, UPSET STOMACH 10/19/16) lorazepam (Mild, GI DISTRESS 10/20/16) Penicillins (UPSET STOMACH 10/19/16) buspirone (10/21/16) ranitidine (UPSET STOMACH 10/19/16) Current Medications: Med Acetaminophen 650 MG PO Q6P PRN 10/19/16 2330 Alprazolam 1 MG PO Q6 10/22/16 1800 Artificial Tears 2 GTT OPH 4 TIMES/DAY 10/22/16 2300 Calcium Carbonate 500 MG PO DAILY 10/22/16 1000 Cholecalciferol 2,000 IU PO DAILY 10/23/16 1000 Fenofibrate 145 MG PO DAILY 10/20/16 1818 Fluticasone Propionate 2 SPRAY NENA DAILY 10/21/16 1324 Heparin Sodium (Porcine) 5,000 UNIT SC Q8 10/19/16 2323 Insulin Aspart SC TIDAC 10/23/16 1200 Insulin Detemir 14 UNITS SC BID 10/20/16 2200 Lisinopril 20 MG PO DAILY 10/21/16 1325 Melatonin 5 MG PO AT BEDTIME 10/21/16 2200 Metoclopramide HCl 10 MG IV Q6P PRN 10/21/16 1445 Omeprazole 40 MG PO DAILY AC 10/23/16 0745 Ramelteon 8 MG PO AT BEDTIME 10/22/16 2200 Tetrahydrozoline HCl 1 GTT OPH DAILY 10/22/16 1330 Past History Past Medical History Neurological: deafness EENT: CONGENITAL DEAFNESS Cardiovascular: TRIGLYCERIDEMIA Gastrointestinal: GERD, chronic abdominal pain Hepatic: s/p cholecystectomy Psychiatric: anxiety, depression Endocrine: diabetes Past Surgical History Surgical History: non-contributory Psychosocial History Strengths/Capabilities: Supportive family Physical Limitations (Interventions): Chronic medical illness Psychiatric Treatment History Psych Treatment Psychiatric Treatment Yes (As above) Diagnosis: By chart history unspecified anxiety disorder By chart history unspecified depressive disorder Risk Factors: chronic/serious med cond. Assessment/Plan Mental Status Orientation: Confused, Person, Place, Situation Affect: Blunted Speech: Mumbled, Slurred Neuro-vegetative: Sleep Disturbance Mental Status Exam: Mental Status Exam Presentation/Appearance: Cooperative with evaluation to the best of her ability but does have great difficulty participating in interview. Hospital garb. Hard of hearing patient declines she is hearing aid or interpretation for interview. Patient displays jerking movements of arms, legs, and neck. Orientation: x4 Sensorium: Awake and alert Eye contact: Fair Affect: Blunted Mood: Unable to assess Depression: Unable to assess Anxiety: Does state she takes medication for "stress" Thought Content: Unable to assess SI/HI/AV at one point during interview does appear to be looking at something which is not there and the corner of the room. She frequently complains of "electricity feelings" when people touch her, she states this feeling has only existed in the hospital. Often asks for objects that are not in the room including her wedding ring. Thought Process: Loose associations, circumstantial and at times perseverative, patient frequently becomes derailed Speech: Repetitive, dysarthric Judgment: Impaired Insight: impaired Cognition: Memory: Some deficits at present Attention/Concentration: Impaired patient cannot successfully name the months of the year forward Abstractions: Unable to assess MMSE: (Did not complete) Brief ROS Gait: Impaired Sleep: Poor Appetite: Poor Energy: Per report high IADLs/ADLs: With assist Lab Results: Laboratory Tests 10/23/16 0620: CBC w Diff NO MAN DIFF REQ, RBC 4.24, MCV 92.5, MCH 30.6, RDW 13.4, MPV 8.7, Gran % 70.2, Lymphocytes % 21.5, Monocytes % 6.8, Eosinophils % 1.4, Basophils % 0.1, Absolute Granulocytes 6.9 H, Absolute Lymphocytes 2.1, Absolute Monocytes 0.7 H, Absolute Eosinophils 0.1, Absolute Basophils 0, PUBS MCHC 33.0 10/22/16 0700: Anion Gap 11, Estimated GFR > 60, BUN/Creatinine Ratio 7.5, Glucose 177 H, Calcium 9.4, Phosphorus 3.7, Magnesium 2.1, Albumin 4.2, Vitamin B12 > 1000 H, 25-OH Vitamin D Total 9.2 L, TSH 0.954, Free T4 2.10 H 10/21/16 1850: Anion Gap 14, Estimated GFR > 60, BUN/Creatinine Ratio 7.5, Glucose 226 H, Phosphorus 2.5, Magnesium 1.7 10/21/16 1120: Anion Gap 13, Estimated GFR > 60, BUN/Creatinine Ratio 10.0, Magnesium 1.8, CBC w Diff NO MAN DIFF REQ, RBC 3.86 L, MCV 92.4, MCH 30.7, RDW 13.7, MPV 9.1, Gran % 73.5, Lymphocytes % 17.6 L, Monocytes % 7.7, Eosinophils % 1.1, Basophils % 0.1, Absolute Granulocytes 6.4, Absolute Lymphocytes 1.5, Absolute Monocytes 0.7 H, Absolute Eosinophils 0.1, Absolute Basophils 0, PUBS MCHC 33.2 Microbiology 10/21 0900 URINE ROUT: Urine Culture - COMP Diffential Diagnosis: Delirium due to multiple etiologies, likely primarily benzodiazepine withdrawl Medication induced acute dystonia Rule out unspecified mood disorder Rule out unspecified anxiety disorder Impression: 61-year-old female referred to psychiatric service with altered mental status and poor sleep in the context of not receiving her regular Xanax for 2 days. This is likely the cause of her alterations but cannot rule out other contributing factors including DKA. It is unclear if her belief in experiencing feelings of electricity when touched is a function of diabetic neuropathy or in fact a tactile hallucination. Her odd movements may be a product of this delirium but they appear somewhat atypical for that eitiology. It is possible that she is experiencing a movement disorder due to her Metoclopramide as it does have a black box warning for movement disorders. There is no documentation of these movements prior to her first dose on 10/21 so this seems likely. Provisional Treatment Plan: 1. Please discontinue Reglan and consider an alternative agent. Would appreciate neurology recommendations for movement disorder treatment. Cogentin, Artane, or Benadryl may be considered for treatment of movements with great caution as they may compound confusion, weigh risks and benefits carefully. If these movements appear to be more a function of akesthesia propranolol would be medication of choice. However, discontinuation of offending agent should be first intervention. 2. Continue scheduled Xanax as currently ordered and monitor for signs and symptoms of withdrawal. 3. Additional collateral information is needed about baseline functioning and mood which we will obtain from family. 4. Please discontinue melatonin, increase Rozerem to 16 mg. 5. Please continue to avoid benzodiazepines, opioid analgesics, and meds with strong anticholinergic properties as much as possible to prevent further confusion. 6. Please initiate the following nonpharmacologic interventions: -Avoid nursing and medical procedures during sleep hours whenever possible - Cluster at night interventions that must be completed as much as possible to minimize sleep disruption - Decrease noise patient area during sleeping hours - Reduce lighting at night - Ensure patient has any sensory aids close by that she regularly uses Thank you for including psychiatry in this case we will continue to follow. Marlon Stevens APRN, pager [phone].
[2016-10-23 22:29] VITALS: BP 146/80
[2016-10-24 07:04] VITALS: BP 126/60
--- NOTE | 2016-10-24 07:28 | PN- Housestaff ---
CARLY MURRAY 10/24/16 0727: Subjective Follow-up For: - DKA Subjective: Patient was comfortable this morning. Vitals were stable overnight. She did not have any concerns. She was sitting in her chair, having breakfast when I walked into her room. Blood sugars 226, 228, 231. Currently on long-acting and NovoLog sliding scale. Discussed in detail about the management plan with Dr. Hill. Explained the of the patient. Review of Systems Constitutional: Reports: see HPI. Objective Last 24 Hrs of Vital Signs/I&O Vital Signs Date Time Temp Pulse Resp B/P Pulse O2 O2 Flow FiO2 Ox Delivery Rate 10/24 0704 97.6 86 20 126/60 97 Room Air 10/23 2229 98.6 100 21 146/80 96 Room Air 10/23 1132 100 152/80 Intake & Output 10/24 0800 10/24 0000 10/23 1600 Intake Total 800 600 480 Output Total 1650 300 Balance 800 -1050 180 Intake, Oral 800 600 480 Output, Urine 1650 300 Physical Exam General Appearance: No Acute Distress Other Physical Findings: General Exam: AAOx3, No acute distress, Skin: No rashes, no breakdown HEENT: PERRLA, EOMI Neck: Supple, No JVD No cervical lymphadenopathy CVS: Reg Rate, Normal S1,S2, No MGR Resp: Normal air entry, no ronchi/rales Abdomen: Soft, No tenderness, Normal Bowel Sounds Neuro: Normal Speech, Strength 5/5 b/l x 4 extremities, Sensation intact, CN III -XII NL, Reflexes 2+ Extremities: No cyanosis, pedal edema, abnormal tic-like movements upper extremities Current Medications: Current Medications Sig/Herman Start time Last Medication Dose Route Stop Time Status Admin Acetaminophen 650 MG Q6P PRN 10/19 2330 AC 10/24 PO 0640 Alprazolam 1 MG Q6 10/22 1800 AC 10/24 PO 10/29 1759 0640 Artificial Tears 2 GTT 4 TIMES/DAY 10/22 2300 AC 10/23 OPH 2102 Calcium Carbonate 500 MG DAILY 10/22 1000 AC 10/23 PO 1133 Cholecalciferol 2,000 IU DAILY 10/23 1000 AC 10/23 PO 1135 Fenofibrate 145 MG DAILY 10/20 1818 AC 10/23 PO 1134 Fluticasone 2 SPRAY DAILY 10/21 1324 AC 10/23 Propionate NENA 1052 Heparin Sodium 5,000 UNIT Q8 10/19 2323 AC 10/23 (Porcine) SC 1340 Insulin Aspart 0 TIDAC 10/23 1200 AC 10/23 SC 1813 Insulin Aspart 0 Q4 10/20 1000 DC 10/23 SC 0555 Insulin Detemir 14 UNITS BID 10/20 2200 AC 10/23 SC 2102 Lisinopril 20 MG DAILY 10/21 1325 AC 10/23 PO 1132 Melatonin 5 MG AT BEDTIME 10/21 2200 DC 10/22 PO 2151 Metoclopramide HCl 10 MG Q6P PRN 10/21 1445 AC 10/23 IV 0550 Omeprazole 40 MG DAILY AC 10/23 0745 AC 10/24 PO 0640 Pantoprazole Sodium 40 MG DAILY 10/23 1000 CAN IV Patient Medication 1 ED .STK-MED ONE 10/23 1340 [place] Teaching ED 10/23 1341 Ramelteon 16 MG AT BEDTIME 10/23 2200 AC 10/23 PO 2103 Ramelteon 8 MG AT BEDTIME 10/22 2200 DC 10/22 PO 2151 Tetrahydrozoline HCl 1 GTT DAILY 10/22 1330 AC 10/23 OPH 1136 Assessment/Plan Assessment: 61 y/o F with PMHx of T2DM on insulin, congenital deafness and hypertriglyceridemia who presents with abdominal pain, nausea and vomiting x2 days. Pt was admitted to ICU for insulin drip, subsequently transferred to for persistent abdominal pain despite closed AG, and better controlled sugar. Problem List: # DKA Resolved. Anion gap closed. Blood sugar levels are adequately contolled. Currently on insulin sliding scale as recommended by and 14 units of Levemir.. To be discharged home with both long-acting and short-acting insulin. # GastroparesisPresented with nausea, vomiting and abdominal pain. Came in with glucose 357, bicarb 20, and had positive ketones. Her gap measured at 21 on admission. VBG showed pH at 7.32. WBC 8.9 and afebrile.Treated with insulin drip overnight with closure of anion gap and improvement of glucose to 200s. Insulin drip was discontinued and patient was converted to subcutaneous insulin. No obvious trigger identified for the DKA. CT Abdomen/Pelvis W/ IV Contrast unremarkable except for questionable mild wall thickening of the ascending colon. GI consulted to rule out intraabdominal pathology. Continue IV protonix (home famotidine 40 mg). IV reglan for nausea and Tigan antibody-negative. Hold home glipizide 5 mg bid,metformin 1000mg tid, levemir flex touch 50 units before bedtime. # Abnormal movements-Non charecterized. Pt takes xanax with urine benzo was positive 722H Pt's jerking movements has been chronic as per her . Continue xanax 1 mg q6CT head negative for acute findings .EEG-no findings of any epileptiform activity.Await psych recommendation.Rozerem 16 mg at bedtime . Outpatient psychiatry evaluation. DVT ppx: Mech and Pharm FULL CODE Problem List: 1. Gastroparesis 2. Abdominal pain Pain Ratin Pain Location: Abdomen Pain Goal: Pain 4 or less Pain Plan: Tylenol when necessary Tomorrow's Labs & Rationales: Basic electrolyte panel and magnesium-to monitor for abnormal electrolytes as the patient had DKA at this admission. [facility] 10/24/16 1209: Attending MD Review Statement Attending Statement Attending MD Statement: examined this patient, discuss w/resident/PA/COMMERCIAL PARTS PROFESSIONAL, agreed w/resident/PA/COMMERCIAL PARTS PROFESSIONAL, discussed with family, reviewed EMR data (avail), discussed with nursing, discussed with case mgmt, amended to note Attending Assessment/Plan: Patient seen and examined, currently denies any complaints. Patient has very limited ability to speak and her is at bedside. He also has limitation in speech and uses pen and paper to communicate. Vital Signs Date Time Temp Pulse Resp B/P Pulse O2 O2 Flow FiO2 Ox Delivery Rate 10/24 0959 86 126/60 10/24 0704 97.6 86 20 126/60 97 Room Air 10/23 2229 98.6 100 21 146/80 96 Room Air on exam; aox3, nad. cv; s1,s2, rrr. resp; clear abd; soft, nt, bs+ ext; no edema. no labs today A/P; 61 y/o F with PMHx of T2DM on insulin, congenital deafness and hypertriglyceridemia who presents with abdominal pain, nausea and vomiting x2 days, originally admitted to ICU with DKA requiring insulin drip. After stabilized she was transferred to telemetry and then to general medicine floor. Also has been evaluated by GI and neurology. Had endoscopy done which was consistent with gastroparesis which was giving her abdominal pain. Neurology was consulted for these bizarre extremity movements which neurology did not think had anything to do with the seizures. She probably has these movements secondary to psychological reasons. At this point awaiting physical therapy evaluation to determine the disposition. Blood sugars are well controlled on current regimen. Patient has been seen by psychiatry and currently psychiatry does not recommend starting anything yet. Patient has an appointment with outpatient psychiatry on November 03. One seen no about the disposition plan, patient can be discharged today. We'll continue Reglan for one week and then she should follow-up with Gastroenterology as an outpatient. She should be continued on a PPI and other current meds.
--- NOTE | 2016-10-24 08:05 | PN- Diabetes ---
Assessment/Plan Assessment: Patient is presently on Levemir 14 units twice a day and sliding-scale NovoLog before meals. Her fingerstick blood sugars yesterday were 178 before breakfast, 266. Before lunch, 228 before dinner, and 231 at bedtime. This monitored fingerstick blood sugar is 150. Review of the records reveals that this patient was at home on Levemir 50 units once a day prior to admission along with glipizide 5 mg twice a day and metformin 1000 mg twice a day. She came in with uncontrolled diabetes with mild ketosis with a carbon dioxide of 20 and then anion gap of 21. Anti-mehdi antibody is negative Plan: Suggest continuing the present insulin regimen. I would prefer to leave her off metformin because of her GI issues and off glipizide because of the risk of hypoglycemia. If the patient goes home we would prefer that she stay on her present insulin regimen. We should send the visiting nurse to the house to see patient has been compliant on her insulin regimen.. Subjective Subjective: Feels okay Objective Last 24 Hrs of Vital Signs/I&O Vital Signs Date Time Temp Pulse Resp B/P Pulse O2 O2 Flow FiO2 Ox Delivery Rate 10/24 0704 97.6 86 20 126/60 97 Room Air 10/23 2229 98.6 100 21 146/80 96 Room Air 10/23 1132 100 152/80 Intake & Output 10/24 1600 10/24 0800 10/24 0000 Intake Total 800 600 Output Total 1650 Balance 800 -1050 Intake, Oral 800 600 Output, Urine 1650 Vital Signs Date Time Temp Pulse Resp B/P Pulse O2 O2 Flow FiO2 Ox Delivery Rate 10/24 0704 97.6 86 20 126/60 97 Room Air 10/23 2229 98.6 100 21 146/80 96 Room Air 10/23 1132 100 152/80 Intake & Output 10/24 1600 10/24 0800 10/24 0000 Intake Total 800 600 Output Total 1650 Balance 800 -1050 Intake, Oral 800 600 Output, Urine 1650 Physical Exam General Appearance: alert, awake, anxious Neck: normal inspection Respiratory: normal breath sounds Cardiovascular: regular rate/rhythm Abdomen: normal bowel sounds Extremities: normal inspection Current Medications: Current Medications Sig/Herman Start time Last Medication Dose Route Stop Time Status Admin Acetaminophen 650 MG Q6P PRN 10/19 2330 AC 10/24 PO 0640 Alprazolam 1 MG Q6 10/22 1800 AC 10/24 PO 10/29 1759 0640 Artificial Tears 2 GTT 4 TIMES/DAY 10/22 2300 AC 10/23 OPH 2102 Calcium Carbonate 500 MG DAILY 10/22 1000 AC 10/23 PO 1133 Cholecalciferol 2,000 IU DAILY 10/23 1000 AC 10/23 PO 1135 Fenofibrate 145 MG DAILY 10/20 1818 AC 10/23 PO 1134 Fluticasone 2 SPRAY DAILY 10/21 1324 AC 10/23 Propionate NENA 1052 Heparin Sodium 5,000 UNIT Q8 10/19 2323 AC 10/23 (Porcine) SC 1340 Insulin Aspart 0 TIDAC 10/23 1200 AC 10/24 SC 0759 Insulin Aspart 0 Q4 10/20 1000 DC 10/23 SC 0555 Insulin Detemir 14 UNITS BID 10/20 2200 AC 10/23 SC 2102 Lisinopril 20 MG DAILY 10/21 1325 AC 10/23 PO 1132 Melatonin 5 MG AT BEDTIME 10/21 2200 DC 10/22 PO 2151 Metoclopramide HCl 10 MG Q6P PRN 10/21 1445 AC 10/23 IV 0550 Omeprazole 40 MG DAILY AC 10/23 0745 AC 10/24 PO 0640 Patient Medication 1 ED .STK-MED ONE 10/23 1340 DC Teaching ED 10/23 1341 Ramelteon 16 MG AT BEDTIME 10/23 2200 AC 10/23 PO 2103 Ramelteon 8 MG AT BEDTIME 10/22 2200 DC 10/22 PO 2151 Tetrahydrozoline HCl 1 GTT DAILY 10/22 1330 AC 10/23 OPH 1136 Findings Pertinent Lab/Luis Results: Vital Signs Date Time Temp Pulse Resp B/P Pulse O2 O2 Flow FiO2 Ox Delivery Rate 10/24 0704 97.6 86 20 126/60 97 Room Air 10/23 2229 98.6 100 21 146/80 96 Room Air 10/23 1132 100 152/80 Intake & Output 10/24 1600 10/24 0800 10/24 0000 Intake Total 800 600 Output Total 1650 Balance 800 -1050 Intake, Oral 800 600 Output, Urine 1650
[2016-10-24] MEDS ORDERED: NOVOLOG100 UNIT/2 SC ×2 (11:00→11:40)
[2016-10-24] MEDS ORDERED: LEVEMIR100 UNIT/1 SC (11:00)
[2016-10-24] MEDS ORDERED: ROZEREM8 M1 PO (11:40)
--- NOTE | 2016-10-24 11:43 | PN- Psychiatry ---
Assessment/Plan Impression: This is a 61 year old woman, who lives at [facility] in [place] with her spouse, Александр. She presented to the hospital on 10/19/16 with abdominal pain, n/v. loose stools, and was admitted for DKA, which has resolved. She endorses depression and anxiety, and denies any psychiatric treatment. with the exception of her current alprazolam, and a recent trial, by her PCP, Dr. Mark Mo, on Buspar, and also amitriptyline 75 mg, last prescribed in July,. The patient and the spouse do not recall the reason for the amitriptyline. Tanna, is reporting difficulty with sleep initiation and nightmares. Her feeling of electric shock when touched is new, and has been evaluated by neurology, along with report of possible seizure. 10/22/16: EEG results, per Dr. Bird: Limited study, however, there are no findings to suggest epileptiform activity. 10/22/16: CT head showed no acute intracranial findings. There are changes consistent with mild diffuse volume loss. Last EKG 10/20/16 0522: Sinus tachycardia, 105 bpm, QTc 466 mS. Lab results for 10/22/16 reviewed. The most disturbing symptom to the patient are her "electric shocks," anxiety, nightmares and depression, in that order. We are uncertain if the "electric shocks" are being confused with neuropathy, but they are new after admission to the hospital, and may resolve upon discharge. These are selective, and do not occur if the patient has warning that she is being touched. There may be a role for propranolol or duloxetine or gabapentin in releiveing these symptoms. Suggestion: 1. Continue alprazolam 1 mg PO q 6 hours as needed. 2. Buspirone can be held, per patient's wish. 3. Continue ramelteon 16 mg PO at bedtime. 4. Continue Vitamin D supplementation. 5. The patient has an intake appointment with Outpatient psychiatry on Thursday, at 1015, at [address] [place] [address] in [place] with Yudelka. We understand that the patient will be discharged to an [facility] for rehab. I have asked the spouse to call and reschedule the intake appointment if necessary. We will defer other possible psychotropic interventions to OPS. Gurpreet Cisneros APRN, Pager [phone]. Subjective Subjective: Patient seen today, 10/24/16, at 1005, in room 238. Her supportive spouse , Александр, and father, Riley Harrison, were present. Speech is dysarthric. She is hearing impaired, using hearing aid and lip-reading , as well as ASL to communicate. She is calm and cooperative for most of the interview, except as noted below. Alert and oriented. Denies AVH, and presents no guillaume delusions. However, she reports seeing and hearing a demon at night, but it is unclear if this is part of her dreaming. It is not happeneing during the daytime and warrants further evaluation as an outpatient. Reports 8 hours of sleep. She states that she has difficulty with her memory. Scales depression at 6/10, anxiety as 10/10; 10/10 would be the most severe. The patient is mostly calm, becoming briefly animated when discussing some topics. She is in no apparent distress, until her spouse touched her leg unexpectedly, causing her to jerk her arm back, and report she is feeling the "electric shock " sensation. At other times, the spouse touches her with warning, and she is calm. Similarly, she touches this program writer's hand without the shock. The patient and spouse report that this sensation is not present at home, and is new. She also reports nightmares every night, involving trying to awaken her spouse. She had an incident at home where she fell out of bed and hit her head, and had difficulty in arousing her spouse. She denies any other trauma, witnessed, or experienced. Denies SI/HI, but becomes agitated saying that she is angry with her sister, Laura, whom the spouse reports puts a lot of pressure on her to see her mother, currently in a detention. She reports that she feels safe her in the hospital and at home. Objective Results Last 24 Hrs of Labs/Mics: Laboratory Tests 10/23 10/22 10/21 0620 0700 1850 Chemistry Sodium (137 - 145 mmol/L) 139 139 Potassium (3.5 - 5.1 mmol/L) 4.9 4.4 Chloride (98 - 107 mmol/L) 104 105 Carbon Dioxide (22 - 30 mmol/L) 23 21 L Anion Gap (5 - 16) 11 14 BUN (7 - 17 mg/dL) 6 L 6 L Creatinine (0.5 - 1.0 mg/dL) 0.8 0.8 Estimated GFR (>60 ml/min) > 60 > 60 BUN/Creatinine Ratio (7 - 25 %) 7.5 7.5 Glucose (65 - 99 mg/dL) 177 H 226 H Calcium (8.4 - 10.2 mg/dL) 9.4 Phosphorus (2.5 - 4.5 mg/dL) 3.7 2.5 Magnesium (1.6 - 2.3 mg/dL) 2.1 1.7 Albumin (3.5 - 5.0 g/dL) 4.2 Vitamin B12 (239 - 931 pg/mL) > 1000 H 25-OH Vitamin D Total (30 - 100 ng/ml) 9.2 L TSH (0.270 - 4.200 uIU/mL) 0.954 Free T4 (0.64 - 1.79 ng/dL) 2.10 H Hematology CBC w Diff NO MAN DIFF REQ WBC (4.8 - 10.8 /CUMM) 9.8 RBC (4.20 - 5.40 /CUMM) 4.24 Hgb (12.0 - 16.0 G/DL) 13.0 Hct (37 - 47 %) 39.3 MCV (81.0 - 99.0 FL) 92.5 MCH (27.0 - 31.0 PG) 30.6 RDW (11.5 - 14.5 %) 13.4 Plt Count (130 - 400 /CUMM) 246 MPV (7.4 - 10.4 FL) 8.7 Gran % (42.2 - 75.2 %) 70.2 Lymphocytes % (20.5 - 51.1 %) 21.5 Monocytes % (1.7 - 9.3 %) 6.8 Eosinophils % (0 - 5 %) 1.4 Basophils % (0.0 - 2.0 %) 0.1 Absolute Granulocytes (1.4 - 6.5 /CUMM) 6.9 H Absolute Lymphocytes (1.2 - 3.4 /CUMM) 2.1 Absolute Monocytes (0.10 - 0.60 /CUMM) 0.7 H Absolute Eosinophils (0.0 - 0.7 /CUMM) 0.1 Absolute Basophils (0.0 - 0.2 /CUMM) 0 PUBS MCHC (33.0 - 37.0 G/DL) 33.0
[2016-10-24] MEDS ORDERED: NOVOLOG FL100 UNIT/1 SC (11:48)
[2016-10-24] MEDS ORDERED: REGLAN10 M1 PO (14:15)
[2016-10-24 14:21] VITALS: BP 140/80
[2016-10-24 22:32] VITALS: BP 132/60
[2016-10-25 07:05] VITALS: BP 118/78
--- NOTE | 2016-10-25 08:11 | PN- Housestaff ---
FRANCO MARK,RU 10/25/16 0810: Subjective Follow-up For: DKA mood disorder Complaints: pain scale (0-10) Subjective: I saw and examined the patient today morning. She is doing better, reports she had night cristobal every night, unable to sleep well. Right knee pain and lower extremity pain. She did develop small area of erythme with pus like induration on the rigth elbow in the region of IV line. Otherwise doing better. Review of Systems Constitutional: Reports: see HPI. EENTM: Reports: see HPI. Comments: ROS cannot be appreciated as per the patient condition. Her mood is not any different from any other day. Objective Last 24 Hrs of Vital Signs/I&O Vital Signs Date Time Temp Pulse Resp B/P Pulse O2 O2 Flow FiO2 Ox Delivery Rate 10/25 0705 97.3 104 18 118/78 100 Room Air 10/24 2232 97.8 107 20 132/60 95 Room Air 10/24 1421 98.2 99 20 140/80 96 10/24 1353 Room Air Room Air 10/24 0959 86 126/60 Intake & Output 10/25 1600 10/25 0800 10/25 0000 Intake Total 240 120 Output Total 550 1000 Balance -310 -880 Intake, Oral 240 120 Output, Urine 550 1000 Physical Exam General Appearance: Alert, Oriented X3, Cooperative Skin: No Rashes, No Breakdown HEENT: Atraumatic, PERRLA, EOMI Neck: Supple, No JVD Cardiovascular: Regular Rate, Normal S1, Normal S2, No Murmurs Lungs: Clear to Auscultation, Normal Air Movement Abdomen: Normal Bowel Sounds, Soft, No Tenderness Neurological: Strength at 5/5 X4 Ext, Normal Tone, Cranial Nerves 3-12 NL, increased sensivity of the lower extremities Extremities: No Clubbing, No Cyanosis, 2+ EDEMA over both the extremities Vascular: Normal Pulses, Pulses Symmetrical Current Medications: Current Medications Sig/Herman Start time Last Medication Dose Route Stop Time Status Admin Acetaminophen 650 MG Q6P PRN 10/19 2330 AC 10/24 PO 0640 Alprazolam 1 MG Q6 10/22 1800 AC 10/25 PO 10/29 1759 0642 Artificial Tears 2 GTT 4 TIMES/DAY 10/22 2300 AC 10/24 OPH 2122 Calcium Carbonate 500 MG DAILY 10/22 1000 AC 10/24 PO 0959 Cholecalciferol 2,000 IU DAILY 10/23 1000 AC 10/24 PO 0959 Fenofibrate 145 MG DAILY 10/20 1818 AC 10/24 PO 0959 Fluticasone 2 SPRAY DAILY 10/21 1324 AC 10/24 Propionate NENA 1000 Heparin Sodium 5,000 UNIT Q8 10/19 2323 AC 10/25 (Porcine) SC 0642 Insulin Aspart 0 TIDAC 10/23 1200 AC 10/24 SC 1745 Insulin Detemir 14 UNITS BID 10/20 2200 AC 10/24 SC 2125 Lisinopril 20 MG DAILY 10/21 1325 AC 10/24 PO 0959 Metoclopramide HCl 10 MG Q6P PRN 10/21 1445 AC 10/23 IV 0550 Omeprazole 40 MG DAILY AC 10/23 0745 AC 10/25 PO 0642 Polyethylene Glycol 17 GM DAILY PRN 10/24 1300 AC PO Ramelteon 16 MG AT BEDTIME 10/23 2200 AC 10/24 PO 2127 Senna/Docusate Sodium 1 TAB BID PRN 10/24 1300 AC PO Tetrahydrozoline HCl 1 GTT DAILY 10/22 1330 AC 10/24 OPH 1000 Assessment/Plan Assessment: 61 y/o F with PMHx of T2DM on insulin, congenital deafness and hypertriglyceridemia who presents with abdominal pain, nausea and vomiting x2 days. Pt was admitted to ICU for insulin drip, subsequently transferred to for persistent abdominal pain despite closed AG, and better controlled sugar. Problem List: # DKA Resolved. Anion gap closed. Blood sugar levels are adequately contolled. Currently on insulin sliding scale as recommended by and 15 units of Levemir.. To be discharged home with both long-acting and short-acting insulin. # GastroparesisPresented with nausea, vomiting and abdominal pain. Came in with glucose 357, bicarb 20, and had positive ketones. Her gap measured at 21 on admission. VBG showed pH at 7.32. WBC 8.9 and afebrile.Treated with insulin drip overnight with closure of anion gap and improvement of glucose to 200s. Insulin drip was discontinued and patient was converted to subcutaneous insulin. No obvious trigger identified for the DKA. CT Abdomen/Pelvis W/ IV Contrast unremarkable except for questionable mild wall thickening of the ascending colon. GI consulted to rule out intraabdominal pathology. Continue IV protonix (home famotidine 40 mg). IV reglan for nausea and Tigan antibody-negative. Hold home glipizide 5 mg bid,metformin 1000mg tid, levemir flex touch 50 units before bedtime. # Abnormal movements-Non charecterized. Pt takes xanax with urine benzo was positive 722H Pt's jerking movements has been chronic as per her . Continue xanax 1 mg q6CT head negative for acute findings .EEG-no findings of any epileptiform activity.Await psych recommendation.Rozerem 16 mg at bedtime . Outpatient psychiatry evaluation. Awaiting STR placement DVT ppx: Mech and Pharm FULL CODE Problem List: 1. DKA (diabetic ketoacidoses) 2. T2DM (type 2 diabetes mellitus) 3. IDDM (insulin dependent diabetes mellitus) 4. Gastroparesis Pain Ratin Pain Location: right knee Pain Goal: Pain 4 or less Pain Plan: tylenol PRN Tomorrow's Labs & Rationales: NONE JAMEEL MARK,LILIAN 10/25/16 1424: Attending MD Review Statement Attending Statement Attending MD Statement: examined this patient, discuss w/resident/PA/HAND III CUTTER, agreed w/resident/PA/HAND III CUTTER, reviewed EMR data (avail), discussed with nursing, discussed with case mgmt, reviewed images Attending Assessment/Plan: Patient says she feels terrible. She continues to have this abdominal discomfort. Reviewed at length that the labs are normal, CT abdomen done didn't show any acute pathology and this is likely all secondary to gastroparesis in the setting of uncontrolled diabetes with mild ketosis. Appreciate endocrine follow-up and we are titrating the Levemir now to 15 units twice a day. The plan is STR when a bed is available.
--- NOTE | 2016-10-25 11:15 | PN- Diabetes ---
Assessment/Plan Assessment: Patient is presently on Levemir 14 units twice a day and sliding-scale NovoLog before meals. Her fingerstick blood sugars yesterday were 150 before breakfast, 244 before lunch, 242 before dinner and 239 at bedtime. Her fasting fingerstick blood sugar today is 253. Review of the records reveals that this patient was at home on Levemir 50 units once a day prior to admission along with glipizide 5 mg twice a day and metformin 1000 mg twice a day. She came in with uncontrolled diabetes with mild ketosis with a carbon dioxide of 20 and then anion gap of 21. Anti-mehdi antibody is negative Plan: Suggest increase Levemir to 15 units twice a day. Continue present sliding scale NovoLog. The patient is eating better now and further adjustments in her insulin regimen may be necessary. Subjective Subjective: Feels terrible Objective Last 24 Hrs of Vital Signs/I&O Vital Signs Date Time Temp Pulse Resp B/P Pulse O2 O2 Flow FiO2 Ox Delivery Rate 10/25 0822 104 118/78 10/25 0705 97.3 104 18 100 Room Air 10/24 2231 97.8 107 20 132/60 95 Room Air 10/24 1421 98.2 99 20 140/80 96 10/24 1353 Room Air Room Air Intake & Output 10/25 1600 10/25 0800 10/25 0000 Intake Total 240 120 Output Total 550 1000 Balance -310 -880 Intake, Oral 240 120 Output, Urine 550 1000 Vital Signs Date Time Temp Pulse Resp B/P Pulse O2 O2 Flow FiO2 Ox Delivery Rate 10/25 0822 104 118/78 10/25 0705 97.3 104 18 11878 100 Room Air 10/24 2231 97.8 107 20 132/60 95 Room Air 10/24 1421 98.2 99 20 140/80 96 10/24 1353 Room Air Room Air Intake & Output 10/25 1600 10/25 0800 10/25 0000 Intake Total 240 120 Output Total 550 1000 Balance -310 -880 Intake, Oral 240 120 Output, Urine 550 1000 Physical Exam General Appearance: alert, awake Head: normal appearance Neck: normal inspection Respiratory: normal breath sounds Cardiovascular: regular rate/rhythm Abdomen: normal bowel sounds Extremities: normal inspection Current Medications: Current Medications Sig/Herman Start time Last Medication Dose Route Stop Time Status Admin Acetaminophen 650 MG Q6P PRN 10/19 2330 AC 10/24 PO 0640 Alprazolam 1 MG Q6 10/22 1800 AC 10/25 PO 03/ 1759 0642 Artificial Tears 2 GTT 4 TIMES/DAY 10/22 2300 AC 10/25 OPH 0822 Bacitracin 1 BARON BID PRN 10/25 1115 AC TOP Calcium Carbonate 500 MG DAILY 10/22 1000 AC 10/25 PO 0822 Cholecalciferol 2,000 IU DAILY 10/23 1000 AC 10/25 PO 0822 Fenofibrate 145 MG DAILY 10/20 1818 AC 10/25 PO 0822 Fluticasone 2 SPRAY DAILY 10/21 1324 AC 10/25 Propionate NENA 0822 Heparin Sodium 5,000 UNIT Q8 10/19 2323 AC 10/25 (Porcine) SC 0642 Insulin Aspart 0 TIDAC 10/23 1200 AC 10/25 SC 0821 Insulin Detemir 14 UNITS BID 10/20 2200 AC 10/25 SC 0821 Lisinopril 20 MG DAILY 10/21 1325 AC 10/25 PO 0822 Metoclopramide HCl 10 MG Q6P PRN 10/21 1445 AC 10/23 IV 0550 Omeprazole 40 MG DAILY AC 10/23 0745 AC 10/25 PO 0642 Polyethylene Glycol 17 GM DAILY PRN 10/24 1300 AC PO Ramelteon 16 MG AT BEDTIME 10/23 2200 AC 10/24 PO 2127 Senna/Docusate Sodium 1 TAB BID PRN 10/24 1300 AC PO Tetrahydrozoline HCl 1 GTT DAILY 10/22 1330 AC 10/25 OPH 0822 Current Medications Sig/Herman Start time Last Medication Dose Route Stop Time Status Admin Acetaminophen 650 MG Q6P PRN 10/19 2330 AC 10/24 PO 0640 Alprazolam 1 MG Q6 10/22 1800 AC 10/25 PO 03/ 1759 0642 Artificial Tears 2 GTT 4 TIMES/DAY 10/22 2300 AC 10/25 OPH 0822 Bacitracin 1 BARON BID PRN 10/25 1115 AC TOP Calcium Carbonate 500 MG DAILY 10/22 1000 AC 10/25 PO 0822 Cholecalciferol 2,000 IU DAILY 10/23 1000 AC 10/25 PO 0822 Fenofibrate 145 MG DAILY 10/20 1818 AC 10/25 PO 0822 Fluticasone 2 SPRAY DAILY 10/21 1324 AC 10/25 Propionate NENA 0822 Heparin Sodium 5,000 UNIT Q8 10/19 2323 AC 10/25 (Porcine) SC 0642 Insulin Aspart 0 TIDAC 10/23 1200 AC 10/25 SC 0821 Insulin Detemir 14 UNITS BID 10/20 2200 AC 10/25 SC 0821 Lisinopril 20 MG DAILY 10/21 1325 AC 10/25 PO 0822 Metoclopramide HCl 10 MG Q6P PRN 10/21 1445 AC 10/23 IV 0550 Omeprazole 40 MG DAILY AC 10/23 0745 AC 10/25 PO 0642 Polyethylene Glycol 17 GM DAILY PRN 10/24 1300 AC PO Ramelteon 16 MG AT BEDTIME 10/23 2200 AC 10/24 PO 2127 Senna/Docusate Sodium 1 TAB BID PRN 10/24 1300 AC PO Tetrahydrozoline HCl 1 GTT DAILY 10/22 1330 AC 10/25 OPH 0822 Findings Pertinent Lab/Luis Results: Laboratory Tests 10/25 0750 Chemistry Sodium (137 - 145 mmol/L) 140 Potassium (3.5 - 5.1 mmol/L) 4.3 Chloride (98 - 107 mmol/L) 99 Carbon Dioxide (22 - 30 mmol/L) 27 Anion Gap (5 - 16) 14 BUN (7 - 17 mg/dL) 14 Creatinine (0.5 - 1.0 mg/dL) 0.9 Estimated GFR (>60 ml/min) > 60 BUN/Creatinine Ratio (7 - 25 %) 15.6 Magnesium (1.6 - 2.3 mg/dL) 1.3 L
[2016-10-25] MEDS ORDERED: LEVEMIR100 UNIT/1 SC (13:22)
[2016-10-25 15:04] VITALS: BP 120/80
[2016-10-25 22:00] VITALS: BP 106/66
[2016-10-26 06:53] VITALS: BP 106/62
--- NOTE | 2016-10-26 07:33 | PN- Housestaff ---
CARLY MURRAY 10/26/16 0732: Subjective Follow-up For: - gastroparesis Subjective: The patient was comfortable this morning. He did not have any complaints. Awake and STIR placement. The patient and the family is aware of the weight. Overnight, she was afebrile and vitals were stable. Blood sugars adequately controlled with current insulin regimen. Review of Systems Constitutional: Reports: see HPI. Objective Last 24 Hrs of Vital Signs/I&O Vital Signs Date Time Temp Pulse Resp B/P Pulse O2 O2 Flow FiO2 Ox Delivery Rate 10/26 0653 97.6 100 18 106/62 97 Room Air 10/25 2200 97.7 95 18 106/66 95 Room Air 10/25 1504 98.6 110 20 120/80 94 10/25 0822 104 118/78 Intake & Output 10/26 0800 10/26 0000 10/25 1600 Intake Total 300 1200 400 Output Total 450 1400 600 Balance -150 -200 -200 Intake, Oral 300 1200 400 Number 1 Bowel Movements Output, Urine 450 1400 600 Physical Exam General Appearance: No Acute Distress Other Physical Findings: Alert, Oriented X3, Cooperative Skin: No Rashes, No Breakdown HEENT: Atraumatic, PERRLA, EOMI Neck: Supple, No JVD Cardiovascular: Regular Rate, Normal S1, Normal S2, No Murmurs Lungs: Clear to Auscultation, Normal Air Movement Abdomen: Normal Bowel Sounds, Soft, No Tenderness Neurological: Strength at 5/5 X4 Ext, Normal Tone, Cranial Nerves 3-12 NL, increased sensivity of the lower extremities Extremities: No Clubbing, No Cyanosis, 2+ EDEMA over both the extremities Vascular: Normal Pulses, Pulses Symmetrical Current Medications: Current Medications Sig/Herman Start time Last Medication Dose Route Stop Time Status Admin Acetaminophen 650 MG Q6P PRN 10/19 2330 AC 10/24 PO 0640 Alprazolam 1 MG Q6 10/22 1800 AC 10/26 PO 10/29 1759 0548 Artificial Tears 2 GTT 4 TIMES/DAY 10/22 2300 AC 10/25 OPH 2208 Bacitracin 1 BARNO BID PRN 10/25 1115 AC 10/25 TOP 1505 Bisacodyl 10 MG ONCE ONE 10/25 2045 DC 10/25 PO 10/25 2045 2208 Calcium Carbonate 500 MG DAILY 10/22 1000 AC 10/25 PO 0822 Cholecalciferol 2,000 IU DAILY 10/23 1000 AC 10/25 PO 0822 Fenofibrate 145 MG DAILY 10/20 1818 AC 10/25 PO 0822 Fluconazole 150 MG ONCE ONE 10/25 2044 DC 10/25 PO 10/25 Fluticasone 2 SPRAY DAILY 10/21 1324 AC 10/25 Propionate NENA 0822 Heparin Sodium 5,000 UNIT Q8 10/19 2323 AC 10/25 (Porcine) SC 2206 Insulin Aspart 0 TIDAC 10/23 1200 AC 10/25 SC 1715 Insulin Detemir 15 UNITS BID 10/25 2199 AC 10/25 SC 220 Insulin Detemir 14 UNITS BID 10/20 2200 DC 10/25 SC 0821 Lisinopril 20 MG DAILY 10/21 1325 AC 10/25 PO 0822 Magnesium Chloride 64 MG BID 10/26 1000 AC PO Magnesium Oxide 400 MG BID 10/26 1000 CAN PO Metoclopramide HCl 10 MG Q6P PRN 10/21 1445 AC 10/23 IV 0550 Omeprazole 40 MG DAILY AC 10/23 0745 AC 10/26 PO 0548 Polyethylene Glycol 17 GM DAILY 10/25 204 AC 10/25 PO 2209 Polyethylene Glycol 17 GM DAILY PRN 10/24 1300 AC PO Ramelteon 16 MG AT BEDTIME 10/23 2199 AC 10/25 PO 2207 Senna/Docusate Sodium 1 TAB BID PRN 10/24 1300 AC PO Tetrahydrozoline HCl 1 GTT DAILY 10/22 1330 AC 10/25 OPH 0822 Last 24 Hrs of Lab/Luis Results Last 24 Hrs of Labs/Mics: Laboratory Tests 10/25/162043: Urine Color STRAW, Urine Clarity CLEAR, Urine pH 6.0, Ur Specific [place] <= 1.005, Urine Protein NEG, Urine Ketones NEG, Urine Nitrite NEG, Urine Bilirubin NEG, Urine Urobilinogen 0.2, Ur Leukocyte Esterase NEG, Ur Microscopic EXAM NOT REQUIRED, Urine Hemoglobin NEG, Urine Glucose NEG 10/25/16 0750: Anion Gap 14, Estimated GFR > 60, BUN/Creatinine Ratio 15.6, Magnesium 1.3 L Assessment/Plan Assessment: 61 y/o F with PMHx of T2DM on insulin, congenital deafness and hypertriglyceridemia who presents with abdominal pain, nausea and vomiting x2 days. Pt was admitted to ICU for insulin drip, subsequently transferred to for persistent abdominal pain despite closed AG, and better controlled sugar. Problem List: # DKA Resolved. Anion gap closed. Blood sugar levels are adequately contolled. Currently on insulin sliding scale as recommended by and 15 units of Levemir.. To be discharged home with both long-acting and short-acting insulin. # Gastroparesis-Presented with nausea, vomiting and abdominal pain. Came in with glucose 357, bicarb 20, and had positive ketones. Her gap measured at 21 on admission. VBG showed pH at 7.32. WBC 8.9 and afebrile.Treated with insulin drip overnight with closure of anion gap and improvement of glucose to 200s. Insulin drip was discontinued and patient was converted to subcutaneous insulin. No obvious trigger identified for the DKA. CT Abdomen/Pelvis W/ IV Contrast unremarkable except for questionable mild wall thickening of the ascending colon. GI consulted to rule out intraabdominal pathology. Continue IV protonix (home famotidine 40 mg). IV reglan for nausea and Tigan antibody-negative. Hold home glipizide 5 mg bid,metformin 1000mg tid, levemir flex touch 50 units before bedtime. Hypomagnesemia-patient refusing intravenous magnesium sulfate. By mouth potassium has been continued. Reassess in the a.m. # Abnormal movements-Non charecterized. Pt takes xanax with urine benzo was positive 722H Pt's jerking movements has been chronic as per her . Continue xanax 1 mg q6CT head negative for acute findings .EEG-no findings of any epileptiform activity.Await psych recommendation.Rozerem 16 mg at bedtime . Outpatient psychiatry evaluation. Awaiting STR placement DVT ppx: Mech and Pharm FULL CODE Problem List: 1. Gastroparesis 2. Abdominal pain 3. IDDM (insulin dependent diabetes mellitus) Pain Ratin Pain Location: Abdomen Pain Goal: Pain 4 or less Pain Plan: Tylenol when necessary Tomorrow's Labs & Rationales: Basic electrolyte panel and magnesium-patient has abnormal electrolytes. LILIAN JORGENSEN MD 10/26/16 0846: Attending MD Review Statement Attending Statement Attending MD Statement: examined this patient, discuss w/resident/PA/[employer], agreed w/resident/PA/[employer], reviewed EMR data (avail), discussed with nursing, discussed with case mgmt Attending Assessment/Plan: Patient still continues to feel lousy. She has multiple complaints including the abdominal discomfort, shooting pains in her legs and overall. I explained at length the effects of the diabetes with neuropathy and gastroparesis. We are actively controlling the sugars and titrating the Levemir per endocrine. Follow -up labs today and if her mag is okay we can stop the Slow-Mag orally. Actively working on getting an STR bed for ongoing care and outpatient follow-up. She has these bizarre jerky movements that have been deemed non-epileptogenic and are at her baseline.
--- NOTE | 2016-10-26 09:34 | ULTRASOUND REPORT ---
EXAMINATION: US TRIPLEX LOWER EXTREMITY, RIGHT CLINICAL INFORMATION: Right leg pain. COMPARISON: None TECHNIQUE: Color-flow triplex imaging with spectral analysis and compression Doppler were performed on the right lower extremity. FINDINGS: Respiratory variation, normal compression and augmented flow are noted throughout the lower extremity. The visualized common femoral vein, superficial femoral vein, profunda femoral vein, popliteal vein and midcalf peroneal and posterior tibial venous segments show no evidence of deep venous thrombosis. There is no Littlejohn's cyst. IMPRESSION: Normal triplex scan without evidence of deep venous thrombosis involving the right lower extremity.
--- NOTE | 2016-10-26 10:18 | PN- Diabetes ---
Assessment/Plan Assessment: Patient is presently on Levemir 15 units twice a day and sliding-scale NovoLog before meals. Her fingerstick blood sugars yesterday were 253 before breakfast, 138 before lunch, 224 before dinner, and 199 at bedtime. This morning her fingerstick blood sugar is 182. Review of the records reveals that this patient was at home on Levemir 50 units once a day prior to admission along with glipizide 5 mg twice a day and metformin 1000 mg twice a day. She came in with uncontrolled diabetes with mild ketosis with a carbon dioxide of 20 and then anion gap of 21. Anti-mehdi antibody is negative Plan: Suggest continue the present insulin. The patient is eating small amounts but this is better than before. She has had no hypoglycemia. Subjective Subjective: Feels a little better Review of Systems Constitutional: Denies: chills, fever. Cardiovascular: Denies: chest pain. Respiratory: Reports: cough. Denies: short of breath. Gastrointestinal: Denies: nausea, vomiting. Skin: Reports: no symptoms. Objective Last 24 Hrs of Vital Signs/I&O Vital Signs Date Time Temp Pulse Resp B/P Pulse O2 O2 Flow FiO2 Ox Delivery Rate 10/26 0959 106 104/10/26 0653 97.6 100 18 106/62 97 Room Air 10/25 2200 97.7 95 18 95 Room Air 10/25 1504 98.6 110 20 120/80 94 Intake & Output 10/26 1600 10/26 0000 Intake Total 300 1200 Output Total 450 1400 Balance -150 -200 Intake, Oral 300 1200 Output, Urine 450 1400 Vital Signs Date Time Temp Pulse Resp B/P Pulse O2 O2 Flow FiO2 Ox Delivery Rate 10/26 0959 106 104/10/26 0653 97.6 100 18 106/62 97 Room Air 10/25 2200 97.7 95 18 106/ 95 Room Air 10/25 1504 98.6 110 20 120/80 94 Intake & Output 10/26 1600 10/26 0000 Intake Total 300 1200 Output Total 450 1400 Balance -150 -200 Intake, Oral 300 1200 Output, Urine 450 1400 Physical Exam General Appearance: no apparent distress, alert, awake Neck: normal inspection Respiratory: normal breath sounds Cardiovascular: regular rate/rhythm Abdomen: normal bowel sounds Extremities: normal inspection Current Medications: Current Medications Sig/Herman Start time Last Medication Dose Route Stop Time Status Admin Acetaminophen 650 MG Q6P PRN 10/19 2330 AC 10/24 PO 0640 Alprazolam 1 MG Q6 10/22 1800 AC 10/26 PO 10/29 1759 0548 Artificial Tears 2 GTT 4 TIMES/DAY 10/22 2300 AC 10/26 OPH 0953 Bacitracin 1 BARON BID PRN 10/25 1115 AC 10/25 TOP 1505 Bisacodyl 10 MG ONCE ONE 10/25 2044 DC 10/25 PO 10/25 2045 220 Calcium Carbonate 500 MG DAILY 10/22 1000 AC 10/26 PO 0958 Cholecalciferol 2,000 IU DAILY 10/23 1000 AC 10/26 PO 0958 Fenofibrate 145 MG DAILY 10/20 1818 AC 10/26 PO 0958 Fluconazole 150 MG ONCE ONE 10/25 2044 DC 10/25 PO 10/25 2045 220 Fluticasone 2 SPRAY DAILY 10/21 1324 AC 10/26 Propionate NENA 0953 Heparin Sodium 5,000 UNIT Q8 10/19 2323 AC 10/25 (Porcine) SC 2207 Insulin Aspart 0 TIDAC 10/23 1200 AC 10/26 SC 0805 Insulin Detemir 15 UNITS BID 10/25 2200 AC 10/26 SC 0959 Insulin Detemir 14 UNITS BID 10/20 2200 DE 10/25 SC 0821 Lisinopril 20 MG DAILY 10/21 1325 AC 10/26 PO 0959 Magnesium Chloride 64 MG BID 10/26 1000 AC 10/26 PO 0959 Magnesium Oxide 400 MG BID 10/26 1000 CAN PO Metoclopramide HCl 10 MG Q6P PRN 10/21 1445 AC 10/23 IV 0550 Omeprazole 40 MG DAILY AC 10/23 0745 AC 10/26 PO 0548 Polyethylene Glycol 17 GM DAILY 10/25 2044 AC 10/26 PO 0959 Polyethylene Glycol 17 GM DAILY PRN 10/24 1300 AC PO Ramelteon 16 MG AT BEDTIME 10/23 2199 AC 10/25 PO 2207 Senna/Docusate Sodium 1 TAB BID PRN 10/24 1300 AC 10/26 PO 1002 Tetrahydrozoline HCl 1 GTT DAILY 10/22 1330 AC 10/26 OPH 0953 Findings Pertinent Lab/Luis Results: Laboratory Tests 10/26 10/25 0730 2044 Chemistry Sodium (137 - 145 mmol/L) 139 Potassium (3.5 - 5.1 mmol/L) 4.3 Chloride (98 - 107 mmol/L) 100 Carbon Dioxide (22 - 30 mmol/L) 23 Anion Gap (5 - 16) 15 BUN (7 - 17 mg/dL) 13 Creatinine (0.5 - 1.0 mg/dL) 0.9 Estimated GFR (>60 ml/min) > 60 BUN/Creatinine Ratio (7 - 25 %) 14.4 Magnesium (1.6 - 2.3 mg/dL) 1.4 L Urines Urine Color (YEL,AMB,STR) STRAW Urine Clarity (CLEAR) CLEAR Urine pH (5.0 - 8.0) 6.0 Ur Specific [place] (1.001 - 1.035) <= 1.005 Urine Protein (NEG,<30 MG/DL) NEG Urine Ketones (NEG) NEG Urine Nitrite (NEG) NEG Urine Bilirubin (NEG) NEG Urine Urobilinogen (0.1 - 1.0 EU/dl) 0.2 Ur Leukocyte Esterase (NEG) NEG Ur Microscopic EXAM NOT REQUIRED Urine Hemoglobin (NEG) NEG Urine Glucose (N MG/DL) NEG
[2016-10-26 15:48] VITALS: BP 110/70
[2016-10-26 23:42] VITALS: BP 96/66
[2016-10-27 07:14] VITALS: BP 102/70
--- NOTE | 2016-10-27 08:25 | PN- Diabetes ---
Assessment/Plan Assessment: Patient is presently on Levemir 15 units twice a day and sliding-scale NovoLog before meals. Her blood sugars yesterday were fairly good control. She is complaining of some nightmares last night but otherwise is doing well. She is eating a little bit better. Review of the records reveals that this patient was at home on Levemir 50 units once a day prior to admission along with glipizide 5 mg twice a day and metformin 1000 mg twice a day. She came in with uncontrolled diabetes with mild ketosis with a carbon dioxide of 20 and then anion gap of 21. Anti-mehdi antibody is negative Plan: Suggest continue the present insulin. The patient's blood sugars are in reasonable control. Subjective Subjective: Complains of nightmares Objective Last 24 Hrs of Vital Signs/I&O Vital Signs Date Time Temp Pulse Resp B/P Pulse O2 O2 Flow FiO2 Ox Delivery Rate 10/27 0714 98.0 96 20 102/70 95 Room Air 10/26 2342 97.8 95 18 96 Room Air 10/26 1548 97.9 104 20 110/70 97 10/26 0959 106 104/68 Intake & Output 10/27 1600 10/27 0800 10/27 0000 Intake Total 800 1500 Output Total 250 Balance 800 1250 Intake, IV 0 Intake, Oral 800 1500 Output, Urine 250 Vital Signs Date Time Temp Pulse Resp B/P Pulse O2 O2 Flow FiO2 Ox Delivery Rate 10/27 0714 98.0 96 20 102/70 95 Room Air 10/26 2342 97.8 95 18 96/66 96 Room Air 10/26 1548 97.9 104 20 110/70 97 10/26 0959 106 104/68 Intake & Output 10/27 1600 10/27 0800 10/27 0000 Intake Total 800 1500 Output Total 250 Balance 800 1250 Intake, IV 0 Intake, Oral 800 1500 Output, Urine 250 Current Medications: Current Medications Sig/Herman Start time Last Medication Dose Route Stop Time Status Admin Acetaminophen 650 MG Q6P PRN 10/19 2330 AC 10/24 PO 0640 Alprazolam 1 MG Q6 10/22 1800 AC 10/27 PO 10/29 1759 0627 Artificial Tears 2 GTT 4 TIMES/DAY 10/22 2300 AC 10/26 OPH 2257 Bacitracin 1 BARON BID PRN 10/25 1115 AC 10/25 TOP 1505 Calcium Carbonate 500 MG DAILY 10/22 1000 AC 10/26 PO 0958 Cholecalciferol 2,000 IU DAILY 10/23 1000 AC 10/26 PO 0958 Fenofibrate 145 MG DAILY 10/20 1818 AC 10/26 PO 0958 Fluticasone 2 SPRAY DAILY 10/21 1324 AC 10/26 Propionate NENA 0953 Heparin Sodium 5,000 UNIT Q8 10/19 2323 AC 10/25 (Porcine) SC 220 Insulin Aspart 0 TIDAC 10/23 1200 AC 10/27 SC 0759 Insulin Detemir 15 UNITS BID 10/25 2200 AC 10/26 SC 2257 Lisinopril 20 MG DAILY 10/21 1325 AC 10/26 PO 0959 Magnesium Chloride 64 MG BID 10/26 1000 AC 10/26 PO 2257 Magnesium Sulfate 1 GM ONCE ONE 10/26 1045 CAN Dextrose/Water 100 ML IV 10/26 1444 Metoclopramide HCl 10 MG Q6P PRN 10/21 1445 AC 10/23 IV 0550 Omeprazole 40 MG DAILY AC 10/23 0745 AC 10/27 PO 0627 Polyethylene Glycol 17 GM DAILY 10/25 2044 AC 10/26 PO 0959 Polyethylene Glycol 17 GM DAILY PRN 10/24 1300 AC PO Ramelteon 16 MG AT BEDTIME 10/23 2200 AC 10/26 PO 2257 Senna/Docusate Sodium 1 TAB BID PRN 10/24 1300 AC 10/26 PO 1002 Tetrahydrozoline HCl 1 GTT DAILY 10/22 1330 AC 10/26 OPH 0953 Findings Pertinent Lab/Luis Results: Laboratory Tests 10/27 0705 Chemistry Sodium (137 - 145 mmol/L) 138 Potassium (3.5 - 5.1 mmol/L) 4.2 Chloride (98 - 107 mmol/L) 101 Carbon Dioxide (22 - 30 mmol/L) 25 Anion Gap (5 - 16) 13 BUN (7 - 17 mg/dL) 13 Creatinine (0.5 - 1.0 mg/dL) 0.9 Estimated GFR (>60 ml/min) > 60 BUN/Creatinine Ratio (7 - 25 %) 14.4 Magnesium (1.6 - 2.3 mg/dL) 1.5 L
--- NOTE | 2016-10-27 10:36 | PN- Housestaff ---
CARLY MURRAY 10/27/16 1035: Subjective Follow-up For: -Diabetic ketoacidosis -Persistent abdominal pain. Subjective: Patient comfortable this morning. He did not have any complaints. Abdominal pain improved compared to yesterday. Vitals were stable overnight. Blood glucose levels although labile, seemed to be in the range of 150-250. Review of Systems Constitutional: Reports: see HPI. Objective Last 24 Hrs of Vital Signs/I&O Vital Signs Date Time Temp Pulse Resp B/P Pulse O2 O2 Flow FiO2 Ox Delivery Rate 10/27 1625 98.2 90 20 120/70 98 10/27 1027 Room Air Room Air 10/27 0950 130/76 10/27 0714 98.0 96 20 102/70 95 Room Air 10/26 2342 97.8 95 18 96/ 96 Room Air Intake & Output 10/27 1600 10/27 0800 10/27 0000 Intake Total 752 798 8849 Output Total 900 250 Balance -753 369 1146 Intake, IV 0 Intake, Oral 601 197 9541 Output, Urine 900 250 Physical Exam General Appearance: No Acute Distress Other Physical Findings: General Exam: AAOx3, No acute distress, Skin: No rashes, no breakdown HEENT: PERRLA, EOMI Neck: Supple, No JVD No cervical lymphadenopathy CVS: Reg Rate, Normal S1,S2, No MGR Resp: Normal air entry, no ronchi/rales Abdomen: Soft, No tenderness, Normal Bowel Sounds Neuro: Normal Speech, Strength 5/5 b/l x 4 extremities, Sensation intact, CN III -XII NL, Reflexes 2+ Extremities: No cyanosis, pedal edema Current Medications: Current Medications Sig/Herman Start time Last Medication Dose Route Stop Time Status Admin Acetaminophen 650 MG Q6P PRN 10/19 2330 AC 10/24 PO 0640 Alprazolam 1 MG Q6 10/22 1800 AC 10/27 PO 10/29 1759 1155 Artificial Tears 2 GTT 4 TIMES/DAY 10/22 2300 10/27 OPH 0943 Bacitracin 1 BARON BID PRN 10/25 1115 10/25 TOP 1505 Calcium Carbonate 500 MG DAILY 10/22 1000 AC 10/27 PO 0948 Cholecalciferol 2,000 IU DAILY 10/23 1000 AC 10/27 PO 0951 Fenofibrate 145 MG DAILY 10/20 1818 AC 10/27 PO 0950 Fluticasone 2 SPRAY DAILY 10/21 1324 AC 10/27 Propionate NENA 0947 Heparin Sodium 5,000 UNIT Q8 10/19 2323 AC 10/25 (Porcine) SC 2207 Insulin Aspart 0 TIDAC 10/23 1200 AC 10/27 SC 1155 Insulin Detemir 15 UNITS BID 10/25 2200 AC 10/27 SC 0947 Lisinopril 20 MG DAILY 10/21 1325 AC 10/27 PO 0950 Magnesium Chloride 64 MG BID 10/26 1000 AC 10/27 PO 0951 Magnesium Oxide 400 MG BID 10/27 1000 AC 10/27 PO 1155 Metoclopramide HCl 10 MG Q6P PRN 10/21 1445 AC 10/23 IV 0550 Omeprazole 40 MG DAILY AC 10/23 0745 AC 10/27 PO 0627 Polyethylene Glycol 17 GM DAILY 10/25 2044 AC 10/27 PO 0947 Polyethylene Glycol 17 GM DAILY PRN 10/24 1300 AC PO Prazosin HCl 0.5 MG AT BEDTIME 10/27 2199 CANr PO Ramelteon 16 MG AT BEDTIME 10/23 2200 AC 10/26 PO 2257 Senna/Docusate Sodium 1 TAB BID PRN 10/24 1300 AC 10/26 PO 1002 Tetrahydrozoline HCl 1 GTT DAILY 10/22 1330 AC 10/27 OPH 0945 Last 24 Hrs of Lab/Luis Results Last 24 Hrs of Labs/Mics: Laboratory Tests 10/27/16 0705: Anion Gap 13, Estimated GFR > 60, BUN/Creatinine Ratio 14.4, Magnesium 1.5 L Assessment/Plan Assessment: 61 y/o F with PMHx of T2DM on insulin, congenital deafness and hypertriglyceridemia who presents with abdominal pain, nausea and vomiting x2 days. Pt was admitted to ICU for insulin drip, subsequently transferred to for persistent abdominal pain despite closed AG, and better controlled sugar. Problem List: # DKA Resolved. Anion gap closed. Blood sugar levels are adequately contolled. Currently on insulin sliding scale as recommended by and 15 units of Levemir.. To be discharged home with both long-acting and short-acting insulin. Came in with glucose 357, bicarb 20, and had positive ketones. Her gap measured at 21 on admission. VBG showed pH at 7.32. WBC 8.9 and afebrile.Treated with insulin drip overnight with closure of anion gap and improvement of glucose to 200s. Insulin drip was discontinued and patient was converted to subcutaneous insulin. No obvious trigger identified for the DKA. # Gastroparesis-Presented with nausea, vomiting and abdominal pain.. By mouth Protonix. IV reglan for nausea. Hypomagnesemia-patient refusing intravenous magnesium sulfate. By mouth magnesium has been continued. Reassess in the a.m. # Abnormal movements-Non charecterized. Pt takes xanax with urine benzo was positive 722H Pt's jerking movements has been chronic as per her . Continue xanax 1 mg q6CT head negative for acute findings .EEG-no findings of any epileptiform activity.Await psych recommendation.Rozerem 16 mg at bedtime . Outpatient psychiatry evaluation. Recommended starting prazosin at a lower dose. Equivalent dosing is not available in the pharmacy. Discussed with Srinivas and discontinued prazosin at this time. Awaiting STR placement DVT ppx: Mech and Pharm FULL CODE Problem List: 1. Gastroparesis 2. Abdominal pain Pain Ratin Pain Location: Abdomen Pain Goal: Pain 4 or less Pain Plan: Tylenol when necessary Tomorrow's Labs & Rationales: Magnesium-patient had hypomagnesemia. EPHRAIM MARK,NAM 10/27/16 1154: Attending MD Review Statement Attending Statement Attending MD Statement: examined this patient, discuss w/resident/PA/PHYSICIAN INTERNIST, agreed w/resident/PA/PHYSICIAN INTERNIST, discussed with family, reviewed EMR data (avail), discussed with nursing, discussed with case mgmt, amended to note Attending Assessment/Plan: Patient seen and examined, and father sitting at the bedside. She did complain of nightmares last night. Her blood sugars are much better controlled. Vital Signs Date Time Temp Pulse Resp B/P Pulse O2 O2 Flow FiO2 Ox Delivery Rate 10/27 1027 Room Air Room Air 10/27 0950 130/76 10/27 0714 98.0 96 20 102/70 95 Room Air 10/26 2342 97.8 95 18 96/66 96 Room Air 10/26 1548 97.9 104 20 110/70 97 on exam; aox3, nad. cv; s1,s2, rrr. resp; clear. abd; soft, nt, bs+ ext; no edema. Laboratory Tests 10/27 0705 Chemistry Sodium (137 - 145 mmol/L) 138 Potassium (3.5 - 5.1 mmol/L) 4.2 Chloride (98 - 107 mmol/L) 101 Carbon Dioxide (22 - 30 mmol/L) 25 Anion Gap (5 - 16) 13 BUN (7 - 17 mg/dL) 13 Creatinine (0.5 - 1.0 mg/dL) 0.9 Estimated GFR (>60 ml/min) > 60 BUN/Creatinine Ratio (7 - 25 %) 14.4 Magnesium (1.6 - 2.3 mg/dL) 1.5 L A/P; 61 y/o F with PMHx of T2DM on insulin, congenital deafness and hypertriglyceridemia who presents with abdominal pain, nausea and vomiting x2 days, originally admitted to ICU with DKA requiring insulin drip. After stabilized she was transferred to telemetry and then to general medicine floor. Also status post endoscopy for abdominal pain and found to have gastroparesis. At this point blood sugars are much more stable on current regimen. Patient has been continued on a PPI. She needs to go to rehabilitation and awaiting bed availability. If there is a bed available today then she can be discharged. I discussed with Srinivas Cisneros from psychiatry. He recommends that if patient stays in the hospital and we can start her on low-dose prazosin 0.5 mg at hs. If she leaves today then she should follow-up with the psychiatrist at the rehabilitation. D/W patient's and father.
[2016-10-27] MEDS ORDERED: OMEPRAZOLE40 M1 PO (11:13)
[2016-10-27] MEDS ORDERED: REGLAN10 M1 PO (11:25)
[2016-10-27] MEDS ORDERED: LEVEMIR FL100 UNIT/1 SC (11:28)
--- NOTE | 2016-10-27 13:39 | PN- Psychiatry ---
See Addendum Assessment/Plan Impression: This is a 61 year old woman, who presented to the hospital on 10/19/16 with abdominal pain, n/v. loose stools, and was admitted for DKA, which has resolved. She reports a nightmare this morning, which her spouse states occurred at about 4AM. She reports feeling people touching her, but denies the demon she alluded to last week was in the dream. She was able to touch this aligner typewriter's hand without the electrical shock she has been reporting. The patient complains of recurrent nightmares, some related to her fall some time ago, and her inability to get her husbands attention. There is a possiblity that these nightmares may respond to a small dose of prazosin. She is not reporting hallucinations. Last EKG 10/20/16 0522: Sinus tachycardia, 105 bpm, QTc 466 mS. Lab results for 10/22/16 reviewed. Suggestion: 1. Continue alprazolam 1 mg PO q 6 hours as needed. 2. Continue ramelteon 16 mg PO at bedtime. 3. Continue Vitamin D supplementation. 4. We understand that the patient will be discharged to an ECF/Rehab: a. Please request a psychiatry consult at that facility. b. The patient has an intake appointment with Outpatient psychiatry on Thursday, November 03, 2016, at 1015, at [address] [place] [address] with Yudelka Dominguez LCSW. Please ask the [facility] to call and reschedule the intake appointment if necessary. [phone]. 5. If the patient will be staying in [facility] for another night, consider starting prazosin 0.5 mg PO at bedtime for nightmares, otherwise, we will defer to the psychiatry consult at the ECF. 6. Continue to hold buspirone, per the patient's wish. We will continue to follow. Gurpreet Cisneros APRN, Pager [phone]. Subjective Subjective: The patient is alert, oriented to person, place, but off by one day. She denies AVH, and presents no guillaume delusions. She denies suicidal or homicidal ideation. The patient reports good sleep last night until the occurrence of a nightmare at 0400, which awakened her spouse, who has been staying by her side. Objective Last 24 Hrs of Vital Signs/I&O Vital Signs Date Time Temp Pulse Resp B/P Pulse O2 O2 Flow FiO2 Ox Delivery Rate 10/27 1625 98.2 90 20 120/70 98 10/27 1027 Room Air Room Air 10/27 0950 130/76 10/27 0714 98.0 96 20 102/70 95 Room Air 10/26 2342 97.8 95 18 96/66 96 Room Air Intake & Output 10/27 1600 10/27 0800 10/27 0000 Intake Total 759 806 6779 Output Total 900 250 Balance -949 770 6343 Intake, IV 0 Intake, Oral 540 280 8343 Output, Urine 900 250 Current Medications: Current Medications Sig/Herman Start time Last Medication Dose Route Stop Time Status Admin Acetaminophen 650 MG Q6P PRN 10/19 2330 AC 10/24 PO 0640 Alprazolam 1 MG Q6 10/22 1800 AC 10/27 PO 10/29 1759 1155 Artificial Tears 2 GTT 4 TIMES/DAY 10/22 2300 AC 10/27 OPH 0943 Bacitracin 1 BARON BID PRN 10/25 1115 AC 10/25 TOP 1505 Calcium Carbonate 500 MG DAILY 10/22 1000 AC 10/27 PO 0948 Cholecalciferol 2,000 IU DAILY 10/23 1000 AC 10/27 PO 0951 Fenofibrate 145 MG DAILY 10/20 1818 AC 10/27 PO 0950 Fluticasone 2 SPRAY DAILY 10/21 1324 AC 10/27 Propionate NENA 0947 Heparin Sodium 5,000 UNIT Q8 10/19 2323 AC 10/25 (Porcine) SC 2207 Insulin Aspart 0 TIDAC 10/23 1200 AC 10/27 SC 1155 Insulin Detemir 15 UNITS BID 10/25 2200 AC 10/27 SC 0947 Lisinopril 20 MG DAILY 10/21 1325 AC 10/27 PO 0950 Magnesium Chloride 64 MG BID 10/26 1000 AC 10/27 PO 0951 Magnesium Oxide 400 MG BID 10/27 1000 AC 10/27 PO 1155 Metoclopramide HCl 10 MG Q6P PRN 10/21 1445 AC 10/23 IV 0550 Omeprazole 40 MG DAILY AC 10/23 0745 AC 10/27 PO 0627 Polyethylene Glycol 17 GM DAILY 10/25 2044 AC 10/27 PO 0947 Polyethylene Glycol 17 GM DAILY PRN 10/24 1300 AC PO Prazosin HCl 0.5 MG AT BEDTIME 10/27 2200 CANr PO Ramelteon 16 MG AT BEDTIME 10/23 2200 AC 10/26 PO 2257 Senna/Docusate Sodium 1 TAB BID PRN 10/24 1300 AC 10/26 PO 1002 Tetrahydrozoline HCl 1 GTT DAILY 10/22 1330 AC 10/27 OPH 0945 Results Last 24 Hrs of Labs/Mics: Laboratory Tests 10/27 0705 Chemistry Sodium (137 - 145 mmol/L) 138 Potassium (3.5 - 5.1 mmol/L) 4.2 Chloride (98 - 107 mmol/L) 101 Carbon Dioxide (22 - 30 mmol/L) 25 Anion Gap (5 - 16) 13 BUN (7 - 17 mg/dL) 13 Creatinine (0.5 - 1.0 mg/dL) 0.9 Estimated GFR (>60 ml/min) > 60 BUN/Creatinine Ratio (7 - 25 %) 14.4 Magnesium (1.6 - 2.3 mg/dL) 1.5 L
[2016-10-27 16:25] VITALS: BP 120/70
[2016-10-27 22:39] VITALS: BP 122/60
[2016-10-27 22:44] VITALS: BP 122/60
--- NOTE | 2016-10-28 06:12 | PN- Housestaff ---
WILY MARK,[facility] 10/28/16 0611: Subjective Follow-up For: -Diabetic ketoacidosis -Persistent abdominal pain. Subjective: Ms Kang was seen and examined this morning. Resting comfortably in bed. She denies any issues overnight. Patient states that she was able to sleep. She denies any abdominal pain, nausea or vomiting. Patient does complain of subjective eye dryness and states that she would not immediately like any eyedrops. Patient reports good appetite and is currently tolerating breakfast well. She does also endorse subjective cough. Cough is nonproductive in nature. Patient's Srinivas was present during part of the clinical encounter and help translate given the patient is hard of hearing. She denies any fever or chills Review of Systems Constitutional: Reports: see HPI. Objective Last 24 Hrs of Vital Signs/I&O Vital Signs Date Time Temp Pulse Resp B/P Pulse O2 O2 Flow FiO2 Ox Delivery Rate 10/28 0737 97.7 92 16 96/62 95 Room Air 10/27 2244 98.0 93 20 122/60 97 Room Air 10/27 2239 93 122/60 10/27 1625 98.2 90 20 120/70 98 10/27 1027 Room Air Room Air 10/27 0950 130/76 Intake & Output 10/28 1600 10/28 0800 10/28 0000 Intake Total 1000 700 Output Total Balance 1000 700 Intake, Oral 1000 700 Physical Exam General Appearance: Alert, Oriented X3, Cooperative, No Acute Distress Cardiovascular: Normal S1, Normal S2 Lungs: Clear to Auscultation, Normal Air Movement Abdomen: Normal Bowel Sounds, Soft, No Tenderness Neurological: Normal Speech Extremities: No Cyanosis, No Edema Current Medications: Current Medications Sig/Herman Start time Last Medication Dose Route Stop Time Status Admin Acetaminophen 650 MG Q6P PRN 10/19 2330 AC 10/24 PO 0640 Alprazolam 1 MG Q6 10/22 1800 AC 10/28 PO 10/29 1759 0605 Artificial Tears 2 GTT 4 TIMES/DAY 10/22 2300 AC 10/27 OPH 2130 Bacitracin 1 BARON BID PRN 10/25 1115 AC 10/25 TOP 1505 Calcium Carbonate 500 MG DAILY 10/22 1000 AC 10/27 PO 0948 Cholecalciferol 2,000 IU DAILY 10/23 1000 AC 10/27 PO 0951 Fenofibrate 145 MG DAILY 10/20 1818 AC 10/27 PO 0950 Fluticasone 2 SPRAY DAILY 10/21 1324 AC 10/27 Propionate NENA 0947 Heparin Sodium 5,000 UNIT Q8 10/19 2323 AC 10/25 (Porcine) SC 220 Insulin Aspart 0 TIDAC 10/23 1200 AC 10/27 SC 1841 Insulin Detemir 15 UNITS BID 10/25 2200 AC 10/27 SC 2130 Lisinopril 20 MG DAILY 10/21 1325 AC 10/27 PO 0950 Magnesium Chloride 64 MG BID 10/26 1000 DC 10/27 PO 0951 Magnesium Oxide 400 MG BID 10/27 1000 AC 10/27 PO 2130 Metoclopramide HCl 10 MG Q6P PRN 10/21 1445 AC 10/23 IV 0550 Omeprazole 40 MG DAILY AC 10/23 0745 AC 10/28 PO 0605 Polyethylene Glycol 17 GM DAILY 10/25 2044 AC 10/27 PO 0947 Polyethylene Glycol 17 GM DAILY PRN 10/24 1300 AC PO Prazosin HCl 0.5 MG AT BEDTIME 10/270 CAN PO Ramelteon 16 MG AT BEDTIME 10/23 2200 AC 10/27 PO 2130 Senna/Docusate Sodium 1 TAB BID PRN 10/24 1300 AC 10/26 PO 1002 Tetrahydrozoline HCl 1 GTT DAILY 10/22 1330 AC 10/27 OPH 0945 Assessment/Plan Assessment: 61 y/o F with PMHx of T2DM on insulin, congenital deafness and hypertriglyceridemia who presents with abdominal pain, nausea and vomiting x2 days. Pt was admitted to ICU for insulin drip, subsequently transferred to for persistent abdominal pain despite closed AG, and better controlled sugar. Patient seems to be doing well reports no active issues. # DKA Resolved. Anion gap closed. Blood sugar levels are adequately contolled. Currently on insulin sliding scale as recommended by and 15 units of Levemir. To be discharged home with both long-acting and short-acting insulin. Came in with glucose 357, bicarb 20, and had positive ketones. Her gap measured at 21 on admission. VBG showed pH at 7.32. WBC 8.9 and afebrile.Treated with insulin drip overnight with closure of anion gap and improvement of glucose to 200s. Insulin drip was discontinued and patient was converted to subcutaneous insulin. No obvious trigger identified for the DKA. 154-->142-->180-->175. #Nonproductive cough Lozenges (benzocaine/menthol) administered for symptomatic relief. # Gastroparesis Presented with nausea, vomiting and abdominal pain. By mouth Protonix. IV reglan for nausea. #Hypomagnesemia- Patient refused intravenous magnesium sulfate. Magnesium this a.m. 1.7. By mouth magnesium (400 mg) has been continued. # Abnormal movements: Non charecterized. Pt takes xanax with urine benzo was positive 722H Pt's jerking movements has been chronic as per her . Continue xanax 1 mg q6CT head negative for acute findings .EEG-no findings of any epileptiform activity. Await psych recommendation.Rozerem 16 mg at bedtime . Outpatient psychiatry evaluation. Recommended starting prazosin at a lower dose. Patient has not begun on prazosin will continue to monitor for nightmares. #DVT ppx: Mech and Heparin Sodium #Code Full Code Problem List: 1. DKA (diabetic ketoacidoses) 2. T2DM (type 2 diabetes mellitus) 3. IDDM (insulin dependent diabetes mellitus) 4. HLD (hyperlipidemia) 5. Hypertriglyceridemia Pain Ratin Pain Location: No Pain Reported Pain Goal: Remain pain free Pain Plan: Tyelnol PRN Tomorrow's Labs & Rationales: MYKE YE MD,NAM 10/28/16 1149: Attending MD Review Statement Attending Statement Attending MD Statement: examined this patient, discuss w/resident/PA/TWISTING FRAME CHANGER, agreed w/resident/PA/TWISTING FRAME CHANGER, discussed with family, reviewed EMR data (avail), discussed with nursing, discussed with case mgmt, amended to note Attending Assessment/Plan: Patient seen and examined, complained of some dry throat. Her blood sugars are much better controlled. At this point had insulin has been adjusted per endocrinology. Yesterday patient did complain of some nightmares therefore we discussed about starting prazosin per the psychiatry. Unfortunately it does not come in the dose of 0.5 mg and patient's blood pressure this morning was slightly low therefore we decided to hold off on starting prazosin. Patient should be followed by psychiatrist at the rehab and she also has an appointment with outpatient psychiatry with [facility]. Patient was seen by physical therapy again and they continue to recommend rehabilitation. She is awaiting bed availability and whenever there is a bed available she can be discharged to rehabilitation
[2016-10-28 07:37] VITALS: BP 96/62
--- NOTE | 2016-10-28 13:45 | Event Note ---
Event Note Event Note: Rapid Response called at 1.39 pm. Ms Kang was in her room, when she started screaming. The tech heard her screaming, went into the room and saw that her nose was bleeding. The patient then rolled back into bed and started shaking. After the rapid response was called, the patient was in bed and appeared disoriented. Brief physical exam was WNL. It did appear that the patient had bitten her tongue and complained of tongue pain. Her vitals were stable: 125/62. 98% Saturation on RA. Pulse 103. BS 171 Stat blood work was ordered: CBC, BEP and Prolactin. The resident was present. Attending made aware.
[2016-10-28 14:41] VITALS: BP 120/70
[2016-10-28 14:46] LABS: ABSOLUTE BASOPHIL COUNT 0 /CUMM (0.0-0.2); ABSOLUTE EOSINOPHIL COUNT 0.2 /CUMM (0.0-0.7); ABSOLUTE GRANULOCYTE CT 3.9 /CUMM (1.4-6.5); ABSOLUTE LYMPH COUNT 2.1 /CUMM (1.2-3.4); ABSOLUTE MONOCYTE COUNT 0.5 /CUMM (0.10-0.60); BASOPHIL % 0.4 % (0.0-2.0); EOSINOPHIL % 2.4 % (0-5); GRANULOCYTE % 57.8 % (42.2-75.2); HEMATOCRIT 35.4 % (37-47); MEAN CORPUSCULAR HGB 30.7 PG (27.0-31.0); MEAN CORPUSCULAR HGB CONC 33.7 G/DL (33.0-37.0); MEAN CORPUSCULAR VOLUME 91.3 FL (81.0-99.0); MEAN PLATELET VOLUME 8.1 FL (7.4-10.4); PLATELET COUNT 269 /CUMM (130-400); RBC DISTRIBUTION WIDTH 13.4 % (11.5-14.5); RED BLOOD CELL CT 3.88 /CUMM (4.20-5.40); WHITE BLOOD CELL COUNT 6.8 /CUMM (4.8-10.8)
[2016-10-28 22:51] VITALS: BP 104/70
--- NOTE | 2016-10-29 05:54 | PN- Housestaff ---
WILY MARK,[facility] 10/29/16 0553: Subjective Follow-up For: DKA Abdominal Pain Epistaxis Subjective: Ms. Kang was seen and examined this morning. She reported no issues overnight although stated that she had a hard time falling asleep. Patient reports that she does feel better and did mention that she had one episode of epistaxis. Patient denies any additional tongue trauma. Patient denies any abdominal pain. Patient has been tolerating by mouth intake well. Patients Michael was at the bedside and helped during the clinical encounter. Patient denies any fever, chills, nausea, vomiting. Review of Systems Constitutional: Reports: see HPI. Objective Last 24 Hrs of Vital Signs/I&O Vital Signs Date Time Temp Pulse Resp B/P Pulse O2 O2 Flow FiO2 Ox Delivery Rate 10/28 2251 97.6 86 20 104/70 96 Room Air 10/28 1845 95 Room Air 10/28 1441 98.2 80 20 120/70 90 10/28 1059 88 100/60 10/28 0737 97.7 92 16 96/62 95 Room Air Intake & Output 10/29 0800 10/29 0000 10/28 1600 Intake Total 600 500 Output Total 293 069 9624 Balance -101 200 -600 Intake, Oral 600 500 Number 1 Bowel Movements Output, Stool 1 Output, Urine 989 916 7660 Physical Exam General Appearance: Alert, Oriented X3, Cooperative Cardiovascular: Normal S1, Normal S2 Lungs: Clear to Auscultation Abdomen: Normal Bowel Sounds, Soft, No Tenderness Neurological: Normal Tone Extremities: No Cyanosis, No Edema, Normal Pulses Vascular: Normal Pulses Current Medications: Current Medications Sig/Herman Start time Last Medication Dose Route Stop Time Status Admin Acetaminophen 650 MG .STK-MED ONE 10/28 2048 DC PO 10/28 2049 Acetaminophen 650 MG Q6P PRN 10/19 2330 AC 10/28 PO 205 Alprazolam 1 MG Q6 10/22 1800 AC 10/29 PO 10/29 1759 1111 Artificial Tears 2 GTT 4 TIMES/DAY 10/22 2300 AC 10/29 OPH 1112 Bacitracin 1 BARON BID PRN 10/25 1115 AC 10/25 TOP 1505 Benzocaine/Menthol 1 SYLVIE Q2P PRN 10/28 1115 AC PO Calcium Carbonate 500 MG DAILY 10/22 1000 AC 10/29 PO 1112 Cholecalciferol 2,000 IU DAILY 10/23 1000 AC 10/29 PO 1111 Fenofibrate 145 MG DAILY 10/20 1818 AC 10/29 PO 1111 Fluticasone 2 SPRAY DAILY 10/21 1324 AC 10/29 Propionate NENA 1108 Heparin Sodium 5,000 UNIT Q8 10/19 2323 AC 10/25 (Porcine) SC 2207 Insulin Aspart 0 TIDAC 10/23 1200 AC 10/29 SC 1245 Insulin Detemir 15 UNITS BID 10/25 2200 AC 10/29 SC 1112 Lisinopril 20 MG DAILY 10/21 1325 AC 10/29 PO 1111 Magnesium Oxide 400 MG BID 10/27 1000 AC 10/29 PO 1111 Metoclopramide HCl 10 MG Q6P PRN 10/21 1445 AC 10/23 IV 0550 Omeprazole 40 MG DAILY AC 10/23 0745 AC 10/29 PO 0655 Patient Medication 1 ED .STK-MED ONE 10/29 1408 ID Teaching ED 10/29 1409 Polyethylene Glycol 17 GM DAILY 10/25 2044 AC 10/29 PO 1111 Polyethylene Glycol 17 GM DAILY PRN 10/24 1300 AC PO Ramelteon 16 MG AT BEDTIME 10/23 2200 AC 10/28 PO 2054 Senna/Docusate Sodium 1 TAB BID PRN 10/24 1300 AC 10/26 PO 1002 Sodium Chloride 2 SPRAY Q4 10/29 1000 AC 10/29 NENA 1110 Tetrahydrozoline HCl 1 GTT DAILY 10/22 1330 AC 10/29 OPH 1112 Assessment/Plan Assessment: 61 y/o F with PMHx of T2DM on insulin, congenital deafness and hypertriglyceridemia who presents with abdominal pain, nausea and vomiting x2 days. Pt was admitted to ICU for insulin drip, subsequently transferred to for persistent abdominal pain despite closed AG, and better controlled sugar. Patient seems to be doing well reports no active issues. # DKA Resolved. Anion gap closed. Blood sugar levels are adequately contolled. Currently on insulin sliding scale as recommended by and 15 units of Levemir. To be discharged home with both long-acting and short-acting insulin. Came in with glucose 357, bicarb 20, and had positive ketones. Her gap measured at 21 on admission. VBG showed pH at 7.32. WBC 8.9 and afebrile.Treated with insulin drip overnight with closure of anion gap and improvement of glucose to 200s. Insulin drip was discontinued and patient was converted to subcutaneous insulin. No obvious trigger identified for the DKA. 154-->142-->180-->175. Blood sugars have been running as follows: 121 -->154-->140-->301 . Continue current management #Nonproductive cough Lozenges (benzocaine/menthol) administered for symptomatic relief. #Epistaxis Continue to monitor in the meantime we have started the patient on sodium chloride nasal 2 sprays. CBC in AM # Gastroparesis #Resolved Presented with nausea, vomiting and abdominal pain. By mouth Protonix. IV reglan for nausea. #Hypomagnesemia- Patient refused intravenous magnesium sulfate. Magnesium yesterday 1.7. By mouth magnesium (400 mg) has been continued. # Abnormal movements: Non charecterized. Pt takes xanax with urine benzo was positive 722H Pt's jerking movements has been chronic as per her . Continue xanax 1 mg q6CT head negative for acute findings .EEG-no findings of any epileptiform activity. Await psych recommendation.Rozerem 16 mg at bedtime . Outpatient psychiatry evaluation. Recommended starting prazosin at a lower dose. Patient has not begun on prazosin will continue to monitor for nightmares. Patient reports no issues of nightmares overnight. #DVT ppx: Mech and Heparin Sodium #Code Full Code Problem List: 1. Abdominal pain 2. Hypertriglyceridemia 3. HLD (hyperlipidemia) 4. T2DM (type 2 diabetes mellitus) 5. DKA (diabetic ketoacidoses) Pain Ratin Pain Location: No Pain Reported Pain Goal: Remain pain free Pain Plan: Tylenol PRN Tomorrow's Labs & Rationales: No Labs Needed NAM YE MD 10/29/16 1320: Attending MD Review Statement Attending Statement Attending MD Statement: examined this patient, discuss w/resident/PA/SPECIFICATION WRITER, agreed w/resident/PA/SPECIFICATION WRITER, reviewed EMR data (avail), discussed with nursing, discussed with case mgmt, amended to note Attending Assessment/Plan: Patient seen and examined, offers no complaints. Still requiring assistance from the physical therapy therefore they are recommending rehabilitation. Patient had a rapid response yesterday when she bit her tongue. She has a tendency to do that unfortunately secondary to her psychiatric condition. She has been seen by neurology and according to the recommendation these were not seizures. She is not on any antiepileptics. Her blood sugars are well controlled on current regimen. She is awaiting for a bed availability and as well as a bed is available she can be discharged to rehabilitation as she is medically stable.
[2016-10-29 06:58] VITALS: BP 112/70
[2016-10-29 14:47] VITALS: BP 118/55
[2016-10-29] MEDS ORDERED: DEEP SEA44 ML NAS (15:04)
[2016-10-29 22:39] VITALS: BP 110/60
--- NOTE | 2016-10-30 06:00 | PN- Housestaff ---
See Addendum Subjective Follow-up For: DM Epistaxis Subjective: Ms Kang was seen and examined this morning. Reports no issues overnight. States that this was the first time she was able to sleep through the entire night. Patient denies any fever, chills, nausea, vomiting. She denies any abdominal pain. She reports a good appetite. Michael was at the bedside at the time of clinical encounter states that the patient continues to feel better and is improving clinically. Review of Systems Constitutional: Reports: see HPI. Denies: chills, diaphoresis, fever, malaise. Objective Last 24 Hrs of Vital Signs/I&O Vital Signs Date Time Temp Pulse Resp B/P Pulse O2 O2 Flow FiO2 Ox Delivery Rate 10/30 0655 97.5 89 20 104/64 93 Room Air 10/29 2239 97.9 89 20 110/60 98 Room Air 10/29 1447 98.2 80 20 118/55 96 / 1111 130/60 Intake & Output 10/30 0800 10/30 0000 10/29 1600 Intake Total 240 Output Total 300 Balance -60 Intake, Oral 240 Output, Urine 300 Physical Exam General Appearance: Alert, Oriented X3, Cooperative Cardiovascular: Normal S1, Normal S2, No Murmurs Lungs: Clear to Auscultation Abdomen: Normal Bowel Sounds, Soft, No Tenderness Extremities: No Clubbing, No Cyanosis, No Edema, Normal Pulses Vascular: Normal Pulses Current Medications: Current Medications Sig/Herman Start time Last Medication Dose Route Stop Time Status Admin Acetaminophen 650 MG Q6P PRN 10/19 2330 AC 10/28 PO 2054 Alprazolam 1 MG Q6 10/29 1915 AC 10/30 PO 11/05 2358 0555 Alprazolam 1 MG Q6P PRN 10/29 1900 DC PO 11/05 2358 Alprazolam 1 MG Q6 10/22 1800 DC 10/29 PO 10/29 1759 1852 Artificial Tears 2 GTT 4 TIMES/DAY 10/22 2300 AC 10/29 OPH 2119 Bacitracin 1 BARON BID PRN 10/25 1115 AC 10/25 TOP 1505 Benzocaine/Menthol 1 SYLVIE Q2P PRN 10/28 1115 AC PO Calcium Carbonate 500 MG DAILY 10/22 1000 AC 10/29 PO 1112 Cholecalciferol 2,000 IU DAILY 10/23 1000 AC 10/29 PO 1111 Fenofibrate 145 MG DAILY 10/20 1818 AC 10/29 PO 1111 Fluticasone 2 SPRAY DAILY 10/21 1324 AC 10/29 Propionate NENA 1108 Heparin Sodium 5,000 UNIT Q8 10/19 2323 AC 10/25 (Porcine) SC 2207 Insulin Aspart 0 TIDAC 10/23 1200 AC 10/29 SC 1700 Insulin Detemir 15 UNITS BID 10/25 2200 AC 10/29 SC 2120 Lisinopril 20 MG DAILY 10/21 1325 AC 10/29 PO 1111 Magnesium Oxide 400 MG BID 10/27 1000 AC 10/29 PO 2119 Metoclopramide HCl 10 MG Q6P PRN 10/21 1445 AC 10/23 IV 0550 Omeprazole 40 MG DAILY AC 10/23 0745 AC 10/30 PO 0555 Patient Medication 1 ED .STK-MED ONE 10/29 1408 MD Teaching ED 10/29 1409 Polyethylene Glycol 17 GM DAILY 10/25 2044 AC 10/29 PO 1111 Polyethylene Glycol 17 GM DAILY PRN 10/24 1300 AC PO Ramelteon 16 MG AT BEDTIME 10/23 2200 AC 10/29 PO 2119 Senna/Docusate Sodium 1 TAB BID PRN 10/24 1300 AC 10/26 PO 1002 Sodium Chloride 2 SPRAY Q4 10/29 1000 AC 10/30 NENA 0555 Tetrahydrozoline HCl 1 GTT DAILY 10/22 1330 AC 10/29 OPH 1112 Assessment/Plan Assessment: 61 y/o F with PMHx of T2DM on insulin, congenital deafness and hypertriglyceridemia who presents with abdominal pain, nausea and vomiting x2 days. Pt was admitted to ICU for insulin drip, subsequently transferred to for persistent abdominal pain despite closed AG, and better controlled sugar. Patient seems to be doing well reports no active issues. # DKA Resolved. Anion gap closed. Blood sugar levels are adequately contolled. Currently on insulin sliding scale as recommended by and 15 units of Levemir. To be discharged home with both long-acting and short-acting insulin. Came in with glucose 357, bicarb 20, and had positive ketones. Her gap measured at 21 on admission. VBG showed pH at 7.32. WBC 8.9 and afebrile.Treated with insulin drip overnight with closure of anion gap and improvement of glucose to 200s. Insulin drip was discontinued and patient was converted to subcutaneous insulin. No obvious trigger identified for the DKA. 154-->142-->180-->175. Blood sugarsyesterday have been running as follows: 121 -->154-->140-->301 . BS: 118-->171-->145 Continue current management #Nonproductive cough Lozenges (benzocaine/menthol) administered for symptomatic relief. #Epistaxis Continue to monitor in the meantime we have started the patient on sodium chloride nasal 2 sprays. # Gastroparesis #Resolved Presented with nausea, vomiting and abdominal pain. By mouth Protonix. IV reglan for nausea. #Hypomagnesemia- Patient refused intravenous magnesium sulfate. Magnesium previously 1.7. By mouth magnesium (400 mg) has been continued. # Abnormal movements: Non charecterized. Pt takes xanax with urine benzo was positive 722H Pt's jerking movements has been chronic as per her . Continue xanax 1 mg q6CT head negative for acute findings .EEG-no findings of any epileptiform activity. Await psych recommendation.Rozerem 16 mg at bedtime . Outpatient psychiatry evaluation. Recommended starting prazosin at a lower dose. Patient has not begun on prazosin will continue to monitor for nightmares. Patient reports no issues of nightmares overnight. #DVT ppx: Mech and Heparin Sodium #Code Full Code Problem List: 1. DKA (diabetic ketoacidoses) 2. T2DM (type 2 diabetes mellitus) 3. IDDM (insulin dependent diabetes mellitus) 4. HLD (hyperlipidemia) 5. Hypertriglyceridemia 6. Abdominal pain 7. Gastroparesis Pain Ratin Pain Location: No Pain Reported Pain Goal: Remain pain free Pain Plan: Tylenol PRN Tomorrow's Labs & Rationales: No Labs Needed
[2016-10-30 06:55] VITALS: BP 104/64
[2016-10-30 10:27] VITALS: BP 100/70
[2016-10-30 12:47] VITALS: BP 100/70
[2016-12-22] MEDS ORDERED: XANAX1 M1 PO ×2 (15:44→15:48)
== END 2016-10-30 14:45 | DRG 638 ==
LOC: ENRESERVDT → ENRESERVTM → ERH 20:51 → ERHI 22:36 → 1NO 22:36 → CRI 22:36 → 2NA 22:36 → CRI 10-20 00:46 → 1NO 10-20 21:39 → 2NA 10-22 20:33
PROVIDERS: Dermatology; Emergency Medicine; Internal Medicine; Radiology Diagnostic Radiology; Student in an Organized Health Care Education/Training Program; ADMIT Student in an Organized Health Care Education/Training Program
PROC: 0DB68ZX Excision of Stomach, Via Natural or Artificial Opening Endoscopic, Diagnostic (ICD-10-PCS; principal; 2016-10-22)
PROC: 0DB58ZX Excision of Esophagus, Via Natural or Artificial Opening Endoscopic, Diagnostic (ICD-10-PCS; principal; 2016-10-22)
DX: E13.10 Other specified diabetes mellitus with ketoacidosis without coma (principal); R44.3 Hallucinations, unspecified; E87.2 Acidosis; H90.5 Unspecified sensorineural hearing loss; F32.9 Major depressive disorder, single episode, unspecified; Z79.4 Long term (current) use of insulin; Z79.84 Long term (current) use of oral hypoglycemic drugs; R41.0 Disorientation, unspecified; K31.84 Gastroparesis; K21.9 Gastro-esophageal reflux disease without esophagitis; E78.5 Hyperlipidemia, unspecified; Z87.891 Personal history of nicotine dependence; Z85.3 Personal history of malignant neoplasm of breast; E78.1 Pure hyperglyceridemia
CPT/HCPCS: 1NP; 2NAP; 83519; ERO; 36415; 74177; 80307; 81003; 82436; 87086; 88305; 88312; 93005; 93010; 95816; 96361; 96374; 96375; 97110-GO; 97116-GO; 97162-GP; 97166-GO; 97530-GO; 99232; 99233; 99291; J1630; J1644; J1815; J2405; J2765; J3250; J7042

== ENCOUNTER 2016-11-30 07:43 | Emergency (ER) | payer OTHER, MEDICARE ==
[~2016-11-30] VITALS: Ht 157.5 cm; Wt 70.3 kg
[~2016-11-30 07:43] MED LIST: ALPRAZOLAM1 M2 PO; DEEP SEA44 ML NAS; EYE DROPS15 M1 OPH; FENOFIBRATE160 M1 PO; FLUTICASONE PRO16 GM NASB; FOLIC ACID1 M1 PO; GLIPIZIDE5 M2 PO; GLUCOPHAGE1000 M1 PO; LEVEMIR FL100 UNIT/1 SC; LEVEMIR100 UNIT/1 SC; LISINOPRIL20 M1 PO; NOVOLOG FL100 UNIT/1 SC; NOVOLOG100 UNIT/2 SC; OMEPRAZOLE40 M1 PO; PEPCID40 M1 PO; REGLAN10 M1 PO; ROZEREM8 M1 PO; VITAMIN D31000 UNI2 PO
[2016-11-30 07:48] VITALS: BP 132/82
[2016-11-30] MEDS ORDERED: XANAX1 M1 PO ×2 (08:20→08:53)
--- NOTE | 2016-11-30 08:22 | ED PSYCHIATRIC COMPLAINT ---
History of Present Illness General Chief Complaint: General Adult Stated Complaint: PER "SHE NEEDS XANAX" Source: patient, family, old records Exam Limitations: no limitations Vital Signs & Intake/Output Vital Signs & Intake/Output Vital Signs Date Time Temp Pulse Resp B/P Pulse O2 O2 Flow FiO2 Ox Delivery Rate 11/30 0748 97.1 102 20 132/82 96 Room Air Room Air Allergies Coded Allergies: acetaminophen (From Percocet) (UNKNOWN 10/19/16) ciprofloxacin (From Cipro) (UNKNOWN 10/19/16) diphenhydramine (From Benadryl) (UNKNOWN 10/19/16) loratadine (UNKNOWN 10/19/16) nitrofurantoin (UNKNOWN 10/19/16) oxycodone (From Percocet) (UNKNOWN 10/19/16) celecoxib (From Celebrex) (Intermediate, UPSET STOMACH 10/19/16) cimetidine (Intermediate, UPSET STOMACH 10/19/16) clarithromycin (Intermediate, UPSET STOMACH 10/19/16) codeine (Intermediate, UPSET STOMACH 10/19/16) fluconazole (Intermediate, UPSET STOMACH 10/19/16) fluoxetine (From Prozac) (Intermediate, UPSET STOMACH 10/19/16) gabapentin (Intermediate, UPSET STOMACH 10/19/16) lansoprazole (Intermediate, UPSET STOMACH 10/19/16) mycophenolate mofetil (Intermediate, UPSET STOMACH 10/19/16) oxaprozin (From Daypro) (Intermediate, UPSET STOMACH 10/19/16) lorazepam (Mild, GI DISTRESS 10/20/16) Penicillins (UPSET STOMACH 10/19/16) buspirone (10/21/16) ranitidine (UPSET STOMACH 10/19/16) Reconcile Medications Alprazolam 1 MG TABLET 1 TAB PO Q6P PRN anxiety (Reported) Alprazolam (Xanax) 1 MG TABLET 1 TAB PO Q6P PRN anxiety Fenofibrate 160 MG TABLET 1 TAB PO DAILY HLD (Reported) Fluticasone Propionate 50 MCG/ACTUATION SPRAY.SUSP 2 SPRAY NASB DAILY as per (Reported) Folic Acid 1 MG TABLET 1 TAB PO DAILY SUPPLEMENT (Reported) Insulin Aspart, Recombinant (Novolog Flexpen) 100 UNIT/ML INSULN.PEN 0 SC TIDAC diabetes Please take blood sugar insulin 80-150mg/dl-four units 151-200mg/dl-five units 201-250mg/dl-six units 251-300mg/dl-seven units 301-350mg/dl-eight units 351-400mg/dl-nine units >400mg/dl-nine units. call Insulin Detemir (Levemir Flextouch) 100 UNIT/ML (3 ML) INSULN.PEN 15 UNITS SC BID diabetes Lisinopril 20 MG TABLET 1 TAB PO DAILY BP (Reported) Metoclopramide HCl (Reglan) 10 MG TABLET 1 TAB PO TID PRN nausea and vomiting 30 minutes before meals and bedtime Omeprazole 40 MG CAPSULE.DR 1 CAP PO DAILY GERD Ramelteon (Rozerem) 8 MG TABLET 2 TAB PO BEDTIME PRN sleep Sodium Chloride (Deep Sea) 0.65 % SPRAY 2 SPRAY NENA Q4 Epistaxis Triage Note: PT TO ED WITH , PER PT IS ON XANAX AND METFORMIN, TAKEN OFF MEDS, IN ICU A MONTH AGO TO TAKE OFF THE XANAX, THEN WAS AT [facility] AND DID VERY WELL. HERE TODAY FOR "JUMPY LEGS AND FEET". Triage Nurses Notes Reviewed? yes Onset: Just prior to arrival Duration: hour(s):, continues in ED, waxing and waning Timing: recent history Severity: severe Associated Symptoms: anxiety, impaired concentration, insomnia LMP (ages 10-50): post menopausal : No Patient currently breastfeeds: No HPI: Patient ran out of Xanax 6 days ago. Prescriber no longer capable of providing medication. She complains of increased anxiety insomnia difficulty concentrating. There's been no fever chills nausea vomiting diarrhea abdominal pain chest pain shortness breath headache dysuria rash bleeding Past History Travel History Traveled to [place] past 21 day No Medical History Any Pertinent Medical History? 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 No Review of Systems Review of Systems Constitutional: Reports: no symptoms. EENTM: Reports: no symptoms. Respiratory: Reports: no symptoms. Cardiovascular: Reports: no symptoms. GI: Reports: no symptoms. Genitourinary: Reports: no symptoms. Musculoskeletal: Reports: no symptoms. Skin: Reports: no symptoms. Neurological/Psychological: Reports: see HPI, anxiety, confusion, emotional problems. Hematologic/Endocrine: Reports: no symptoms. Immunologic/Allergic: Reports: no symptoms. All Other Systems: Reviewed and Negative Physical Exam Physical Exam General Appearance: well developed/nourished, alert, awake, anxious, moderate distress Head: atraumatic, normal appearance Eyes: Bilateral: normal appearance, PERRL, EOMI. Ears, Nose, Throat: normal pharynx, normal ENT inspection, hearing grossly normal Neck: normal inspection, supple, full range of motion, no midline tenderness Respiratory: normal breath sounds, chest non-tender, no respiratory distress, quiet respiration, lungs clear Cardiovascular: regular rate/rhythm, normal peripheral pulses, norml femoral pulses equa Gastrointestinal: normal bowel sounds, soft, non-tender, no organomegaly Extremities: normal range of motion, no ligament instability Neurological/Psychiatric: no motor/sensory deficits, awake, agitated, alert, anxious, die technician II-XII nml as tested Appearance/Memory/Insight: disheveled, impaired insight Behavoir/Eye Contact/Speech: avoids eye contact, compulsive Thoughts/Hallucinations: no apparent hallucination Skin: intact, normal color, warm/dry SAD PERSONS Done? patient not suicidal Progress Differential Diagnosis: drug intoxication, drug overdose, drug withdrawal, electrolyte abnormality, hypoglycemia Plan of Care: Current Medications Sig/Herman Start time Last Medication Dose Stop Time Status Admin Alprazolam 1 MG ONCE ONE 11/30 829 UNVr (Xanax) 11/30 830 Departure Departure Time of Disposition: 818 Disposition: HOME OR SELF CARE Condition: Stable Clinical Impression Primary Impression: Encounter for medication refill Referrals: HANNAH RIVERO LCSW Call for further Xanax prescriptions MELISSA MARK,ASHLEY Cantu (PCP/Family) Departure Forms: Customer Survey General Discharge Information Prescriptions: Current Visit Scripts Alprazolam (Xanax) 1 TAB PO Q6P PRN anxiety #30 TAB
[2016-12-22] MEDS ORDERED: XANAX1 M1 PO ×2 (15:44→15:48)
== END 2016-11-30 08:28 ==
LOC: ERH 07:43
DX: Z76.0 Encounter for issue of repeat prescription (principal)

== ENCOUNTER 2016-12-12 19:13 | Emergency (ER) | payer OTHER, MEDICARE ==
[~2016-12-12] VITALS: Ht 157.5 cm; Wt 68.6 kg
[~2016-12-12 19:13] MED LIST changes: +XANAX1 M1 PO
--- NOTE | 2016-12-12 19:49 | ED GI/GU/ABDOMINAL COMPLAINT ---
History of Present Illness General Chief Complaint: Abdominal Pain/Flank Pain Stated Complaint: LRQ PAIN, +N/V, X2DAYS Source: patient, family, old records Exam Limitations: poor historian, hard of hearing Vital Signs & Intake/Output Vital Signs & Intake/Output Vital Signs Date Time Temp Pulse Resp B/P Pulse O2 O2 Flow FiO2 Ox Delivery Rate 12/12 2305 97.6 89 16 128/74 96 12/12 1932 97.9 110 18 130/79 95 Room Air ED Intake and Output 12/13 0000 12/12 1200 Intake Total 200 Output Total Balance 200 Intake, IV 200 Patient 151 lb Weight Allergies Coded Allergies: acetaminophen (From Percocet) (UNKNOWN 10/19/16) ciprofloxacin (From Cipro) (UNKNOWN 10/19/16) diphenhydramine (From Benadryl) (UNKNOWN 10/19/16) loratadine (UNKNOWN 10/19/16) nitrofurantoin (UNKNOWN 10/19/16) oxycodone (From Percocet) (UNKNOWN 10/19/16) rabeprazole (From ACIPHEX) (UNKNOWN 12/12/16) risedronate sodium (From ACTONEL) (UNKNOWN 12/12/16) celecoxib (From Celebrex) (Intermediate, UPSET STOMACH 10/19/16) cimetidine (Intermediate, UPSET STOMACH 10/19/16) clarithromycin (Intermediate, UPSET STOMACH 10/19/16) codeine (Intermediate, UPSET STOMACH 10/19/16) fluconazole (Intermediate, UPSET STOMACH 10/19/16) fluoxetine (From Prozac) (Intermediate, UPSET STOMACH 10/19/16) gabapentin (Intermediate, UPSET STOMACH 10/19/16) lansoprazole (Intermediate, UPSET STOMACH 10/19/16) mycophenolate mofetil (Intermediate, UPSET STOMACH 10/19/16) oxaprozin (From Daypro) (Intermediate, UPSET STOMACH 10/19/16) lorazepam (Mild, GI DISTRESS 10/20/16) Penicillins (UPSET STOMACH 10/19/16) buspirone (UNKNOWN 12/12/16) ranitidine (UPSET STOMACH 10/19/16) Reconcile Medications Alprazolam (Xanax) 1 MG TABLET 1 TAB PO Q6P PRN anxiety Dicyclomine Hydrochloride (Bentyl) 10 MG CAPSULE 1 CAP PO TID PRN abdominal pain Fenofibrate 160 MG TABLET 1 TAB PO DAILY HLD (Reported) Fluticasone Propionate 50 MCG/ACTUATION SPRAY.SUSP 2 SPRAY NASB DAILY as per (Reported) Insulin Detemir (Levemir) 100 UNIT/ML VIAL 22 UNITS SC BID DM (Reported) Lisinopril 10 MG TABLET 1 TAB PO DAILY BP (Reported) Metformin HCl 1,000 MG TABLET 1 TAB PO BID DM (Reported) Ondansetron (Zofran Odt) 4 MG TAB.RAPDIS 1 TAB SL TID PRN nausea Sodium Chloride (Deep Sea) 0.65 % SPRAY 2 SPRAY NENA Q4 Epistaxis Triage Note: RECEIVED 61 YO FEMALE HEARING IMPAIRED C/O RLQ ABDOMINAL PAIN X 2 DAYS WITH NAUSEA AND VOMITING. Triage Nurses Notes Reviewed? yes ? n Is pt currently ? No HPI: Patient is a 61-year-old female presents complaining of severe right lower quadrant pain. Pain 2 days. Multiple episodes of vomiting since onset. Pain is currently a sharp pain and severe, no alleviating factors. Patient was seen at another hospital on Thursday, had labs and imaging performed and was discharged home, no specific diagnosis per patient's . Denies fevers. (RAYMON COVARRUBIAS) Past History Travel History Traveled to [place] past 21 day No Medical History Any Pertinent Medical History? 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 No (RAYMON COVARRUBIAS) Review of Systems Review of Systems Constitutional: Denies: chills, fever. EENTM: Reports: no symptoms. Respiratory: Denies: cough, short of breath. Cardiovascular: Denies: chest pain. GI: Reports: see HPI. Genitourinary: Reports: no symptoms. Musculoskeletal: Reports: no symptoms. Skin: Reports: no symptoms. Neurological/Psychological: Reports: no symptoms. Hematologic/Endocrine: Reports: no symptoms. Immunologic/Allergic: Reports: no symptoms. (RAYMON COVARRUBIAS) Physical Exam Physical Exam General Appearance: alert, awake, severe distress Head: atraumatic, normal appearance Eyes: Bilateral: normal appearance. Ears, Nose, Throat, Mouth: hearing grossly normal, moist mucous membrane Neck: normal inspection, full range of motion Respiratory: normal breath sounds, no respiratory distress, lungs clear Cardiovascular: tachycardia (regular rhythm) Gastrointestinal: normal bowel sounds, soft, right lower quadrant tenderness with guarding Back: normal inspection, normal range of motion Extremities: normal range of motion Neurologic/Psych: awake, alert, oriented x 3 Skin: warm/dry Core Measures ACS in differential dx? No Severe Sepsis Present: No Septic Shock Present: No (RAYMON COVARRUBIAS) Progress Differential Diagnosis: appendicitis, bowel obstruction, diverticulitis, hernia, ischemic bowel, inflamm bowel dis, kidney stone, ovarian cyst, ovarian torsion, pancreatitis, PID/cervicitis, PUD/GERD Plan of Care: Orders Procedure Date/time Status URINALYSIS 12/13 1935 Complete TROPONIN LEVEL 12/13 1935 Complete LIPASE 12/13 1935 Complete HEPATIC FUNCTION PANEL 12/13 1935 Complete CBC WITHOUT DIFFERENTIAL 12/13 1935 Complete BASIC METABOLIC PANEL 12/13 1935 Complete AMYLASE 12/13 1935 Complete EKG 12/13 1935 Active Current Medications Sig/Herman Start time Last Medication Dose Stop Time Status Admin Insulin Human Regular 6 UNITS ONCE ONE 12/12 2229 CAN (NovoLIN R) 12/12 2230 Laboratory Tests 12/12/162116: Anion Gap 15, Estimated GFR > 60, BUN/Creatinine Ratio 18.9, Glucose 263 H, Calcium 10.8 H, Total Bilirubin 0.7, Direct Bilirubin 0.4, AST 19, ALT 34, Alkaline Phosphatase 40, Troponin I < 0.01, Total Protein 7.2, Albumin 4.4, Amylase 56, Lipase 111, CBC w Diff NO MAN DIFF REQ, RBC 3.93 L, MCV 92.2, MCH 30.9, RDW 13.7, MPV 9.1, Gran % 72.0, Lymphocytes % 20.9, Monocytes % 6.3, Eosinophils % 0.5, Basophils % 0.3, Absolute Granulocytes 6.0, Absolute Lymphocytes 1.7, Absolute Monocytes 0.5, Absolute Eosinophils 0, Absolute Basophils 0, PUBS MCHC 33.5, Urine Color YEL, Urine Clarity CLEAR, Urine pH 5.5, Ur Specific [place] >= 1.030, Urine Protein NEG, Urine Ketones 40 H, Urine Nitrite NEG, Urine Bilirubin NEG, Urine Urobilinogen 0.2, Ur Leukocyte Esterase NEG, Ur Microscopic EXAM NOT REQUIRED, Urine Hemoglobin NEG, Urine Glucose 500 H 12/12/2016 8:10:49 PM: Discussed with patient's visiting nurse Hannah from [facility] [phone]: Abdominal pain onset earlier this week, patient was seen at another hospital on Thursday. She contacted Dr. Presley who wanted the patient to take pepto bismol and remain on clear liquids, and adjusted her insulin regimen. 12/12/2016 10:40:35 PM: Results discussed with patient and her . Patient afebrile, nontoxic appearing. Appears stable for discharge. Discussed with Dr. Schilling. (ZOYA MAYA,RAYMON) Diagnostic Imaging: Viewed by Me: CT Scan. Discussed w/RAD: CT Scan. Radiology Impression: PATIENT: NILA GUZMAN PRESENT AGE: 61 PATIENT ACCOUNT NO: [id number] : 59 LOCATION: [facility] ORDERING PHYSICIAN: RAYMON MAYA SERVICE DATE: 12/12/16 EXAM TYPE: CAT - CT ABD & PELVIS W/O IV CONTRAS EXAMINATION: CT ABDOMEN AND PELVIS WITHOUT CONTRAST CLINICAL INFORMATION: Right lower quadrant abdominal pain and vomiting. Evaluate for acute appendicitis. COMPARISON: CT abdomen and pelvis with contrast 10/20/2016. TECHNIQUE: Multidetector volumetric imaging was performed from the superior aspect of the liver through the pubic symphysis. Sagittal and coronal reformatted images were obtained on the technologist's workstation. DLP: 363 mGy -cm FINDINGS: Limited evaluation of the solid abdominal viscera in the absence of intravenous contrast. LUNG BASES: Bibasilar subsegmental atelectasis. There are partially visualized calcifications scattered throughout the bilateral breasts. Also noted are coronary artery calcifications. No pleural or pericardial effusions are identified. LIVER, GALLBLADDER, AND BILIARY TREE: There is diffuse low-attenuation of the liver parenchyma, indicative of fatty infiltration of the liver. The liver is otherwise normal in size, shape and contour. No contour deforming hepatic lesions or intrahepatic biliary ductal dilatation is identified. The gallbladder is surgically absent. PANCREAS: Unremarkable. SPLEEN: Unremarkable. ADRENAL GLANDS: Stable left adrenal gland nodule measuring 1.2 cm, not significantly changed relative to the prior examination. KIDNEYS AND URETERS: Evaluation of the bilateral kidneys and renal collecting systems is notable for a 2 mm punctate nonobstructing stone within the lower pole of the left kidney. There is no appreciable nephrolithiasis of the right kidney. No ureteral stones are identified and there is no hydroureteronephrosis of either kidney or renal collecting system. There is persistent mild bilateral perinephric stranding. This finding is entirely nonspecific. BLADDER: Unremarkable. GASTROINTESTINAL TRACT: Normal anatomic orientation of the stomach relative to the duodenum. Normal caliber of abdominal and pelvic bowel loops, without evidence of obstruction or ileus. No circumferential bowel wall thickening with surrounding inflammatory changes to suggest an underlying infectious or inflammatory enterocolitis. Normal-appearing appendix within the right lower quadrant of the abdomen. Scattered colonic diverticulosis, without secondary signs of acute diverticulitis. No organizing intra-abdominal fluid collections or free intraperitoneal air. ABDOMINAL WALL: Small fat-containing umbilical hernia. LYMPH NODES: No significant abdominal or pelvic adenopathy. VASCULAR: Normal course and caliber of the abdominal aorta and its branching vessels, without aneurysmal dilatation. Limited evaluation for vascular patency in the absence of intravenous contrast. PELVIC VISCERA: Unremarkable. OSSEOUS STRUCTURES: No acute osseous abnormality. IMPRESSION: 1. No acute findings within the abdomen or pelvis to explain patient symptomatology. A normal-appearing appendix is present within the right lower quadrant of the abdomen. Incidental note is made of a 2 mm nonobstructing stone within the lower pole of the left kidney. 2. Stable 1.2 cm left adrenal gland nodule. 3. Scattered colonic diverticulosis, without secondary signs of acute diverticulitis. DICTATED BY: RENNY JACKSON MD DATE/TIME DICTATED:12/12/162219 CUT PRESSMAN:ARIANE DATE/TIME TRANSCRIBED:12/12/162219 CONFIDENTIAL, DO NOT COPY WITHOUT APPROPRIATE AUTHORIZATION. <Electronically signed in Other Vendor System> SIGNED BY: RENNY JACKOSN MD 12/12/162230 Initial ED EKG: sinus tachycardia 106 bpm normal axis, normal intervals, no acute ischemic EKG changes (HEILBRUNN PA,RAYMON) Departure Departure Time of Disposition: 2239 Disposition: HOME OR SELF CARE Condition: Stable Clinical Impression Primary Impression: Abdominal pain Qualifiers: Abdominal location: right lower quadrant Qualified Code: R10.31 - Right lower quadrant pain Secondary Impressions: Hyperglycemia Referrals: MELISSA MARK,ASHLEY Cantu (PCP/Family) Additional Instructions: Follow-up with your primary doctor and with the shaker repairer. Call Thursday for appointments. Clear liquid diet for the next 12-24 hours then slowly advance your diet as tolerated. Return to the emergency department if fevers, unable to stay hydrated, or worsening of symptoms. Departure Forms: Customer Survey General Discharge Information Prescriptions: Current Visit Scripts Ondansetron (Zofran Odt) 1 TAB SL TID PRN nausea #10 TAB Dicyclomine Hydrochloride (Bentyl) 1 CAP PO TID PRN abdominal pain #10 CAP (RAYMON COVARRUBIAS) PA/CLEAT LAYER Co-Sign Statement Statement: ED Attending supervision documentation- [] I saw and evaluated the patient. I have also reviewed all the pertinent lab results and diagnostic results. I agree with the findings and the plan of care as documented in the PA's/CLEAT LAYER's documentation. [x] I have reviewed the ED Record and agree with the PA's/CLEAT LAYER's documentation. [] Additions or exceptions (if any) to the PAs/CLEAT LAYER's note and plan are summarized below: [] (ANIYA MARK,RICA Augustine)
[2016-12-12] MEDS ORDERED: LISINOPRIL10 M1 PO (19:56)
[2016-12-12] MEDS ORDERED: METFORMIN HCL1000 M1 PO (19:56)
[2016-12-12] MEDS ORDERED: LEVEMIR100 UNIT/1 SC (20:03)
[2016-12-12 21:23] LABS: ABSOLUTE BASOPHIL COUNT 0 /CUMM (0.0-0.2); ABSOLUTE EOSINOPHIL COUNT 0 /CUMM (0.0-0.7); ABSOLUTE LYMPH COUNT 1.7 /CUMM (1.2-3.4); ABSOLUTE MONOCYTE COUNT 0.5 /CUMM (0.10-0.60); BASOPHIL % 0.3 % (0.0-2.0); EOSINOPHIL % 0.5 % (0-5); HEMATOCRIT 36.3 % (37-47); MEAN CORPUSCULAR HGB 30.9 PG (27.0-31.0); MEAN CORPUSCULAR HGB CONC 33.5 G/DL (33.0-37.0); MEAN CORPUSCULAR VOLUME 92.2 FL (81.0-99.0); MEAN PLATELET VOLUME 9.1 FL (7.4-10.4); PLATELET COUNT 278 /CUMM (130-400); RBC DISTRIBUTION WIDTH 13.7 % (11.5-14.5); RED BLOOD CELL CT 3.93 /CUMM (4.20-5.40); WHITE BLOOD CELL COUNT 8.3 /CUMM (4.8-10.8)
--- NOTE | 2016-12-12 22:31 | CT SCAN REPORT ---
EXAMINATION: CT ABDOMEN AND PELVIS WITHOUT CONTRAST CLINICAL INFORMATION: Right lower quadrant abdominal pain and vomiting. Evaluate for acute appendicitis. COMPARISON: CT abdomen and pelvis with contrast 10/20/2016. TECHNIQUE: Multidetector volumetric imaging was performed from the superior aspect of the liver through the pubic symphysis. Sagittal and coronal reformatted images were obtained on the technologist's workstation. DLP: 363 mGy-cm FINDINGS: Limited evaluation of the solid abdominal viscera in the absence of intravenous contrast. LUNG BASES: Bibasilar subsegmental atelectasis. There are partially visualized calcifications scattered throughout the bilateral breasts. Also noted are coronary artery calcifications. No pleural or pericardial effusions are identified. LIVER, GALLBLADDER, AND BILIARY TREE: There is diffuse low-attenuation of the liver parenchyma, indicative of fatty infiltration of the liver. The liver is otherwise normal in size, shape and contour. No contour deforming hepatic lesions or intrahepatic biliary ductal dilatation is identified. The gallbladder is surgically absent. PANCREAS: Unremarkable. SPLEEN: Unremarkable. ADRENAL GLANDS: Stable left adrenal gland nodule measuring 1.2 cm, not significantly changed relative to the prior examination. KIDNEYS AND URETERS: Evaluation of the bilateral kidneys and renal collecting systems is notable for a 2 mm punctate nonobstructing stone within the lower pole of the left kidney. There is no appreciable nephrolithiasis of the right kidney. No ureteral stones are identified and there is no hydroureteronephrosis of either kidney or renal collecting system. There is persistent mild bilateral perinephric stranding. This finding is entirely nonspecific. BLADDER: Unremarkable. GASTROINTESTINAL TRACT: Normal anatomic orientation of the stomach relative to the duodenum. Normal caliber of abdominal and pelvic bowel loops, without evidence of obstruction or ileus. No circumferential bowel wall thickening with surrounding inflammatory changes to suggest an underlying infectious or inflammatory enterocolitis. Normal-appearing appendix within the right lower quadrant of the abdomen. Scattered colonic diverticulosis, without secondary signs of acute diverticulitis. No organizing intra-abdominal fluid collections or free intraperitoneal air. ABDOMINAL WALL: Small fat-containing umbilical hernia. LYMPH NODES: No significant abdominal or pelvic adenopathy. VASCULAR: Normal course and caliber of the abdominal aorta and its branching vessels, without aneurysmal dilatation. Limited evaluation for vascular patency in the absence of intravenous contrast. PELVIC VISCERA: Unremarkable. OSSEOUS STRUCTURES: No acute osseous abnormality. IMPRESSION: 1. No acute findings within the abdomen or pelvis to explain patient symptomatology. A normal-appearing appendix is present within the right lower quadrant of the abdomen. Incidental note is made of a 2 mm nonobstructing stone within the lower pole of the left kidney. 2. Stable 1.2 cm left adrenal gland nodule. 3. Scattered colonic diverticulosis, without secondary signs of acute diverticulitis.
[2016-12-12] MEDS ORDERED: BENTYL10 M1 PO (22:42)
[2016-12-12] MEDS ORDERED: ZOFRAN ODT4 M1 SL (22:42)
[2016-12-12 23:05] VITALS: BP 128/74
[2016-12-22] MEDS ORDERED: XANAX1 M1 PO ×2 (15:44→15:48)
== END 2016-12-12 23:06 ==
LOC: ERH 19:13
PROVIDERS: Pediatrics
DX: E11.65 Type 2 diabetes mellitus with hyperglycemia (principal); R10.31 Right lower quadrant pain
CPT/HCPCS: 74176; 81003; 96374; 96375; J2405

== ENCOUNTER 2016-12-14 03:11 | Emergency (ER) | payer OTHER, MEDICARE ==
[~2016-12-14] VITALS: Ht 157.5 cm; Wt 68.5 kg
[~2016-12-14 03:11] MED LIST changes: +BENTYL10 M1 PO; +LISINOPRIL10 M1 PO; +METFORMIN HCL1000 M1 PO; +ZOFRAN ODT4 M1 SL
--- NOTE | 2016-12-14 03:40 | ED GI/GU/ABDOMINAL COMPLAINT ---
History of Present Illness General Chief Complaint: Nausea, Vomiting, Diarrhea Stated Complaint: VOMITING AND ABD PAIN Source: patient, family, old records Exam Limitations: physical impairment (DEAF) Vital Signs & Intake/Output Vital Signs & Intake/Output Vital Signs Date Time Temp Pulse Resp B/P Pulse O2 O2 Flow FiO2 Ox Delivery Rate 12/14 0636 97.6 97 20 156/76 99 Room Air 12/14 0403 97 Room Air 12/14 0326 99.1 107 18 110/59 98 Room Air Allergies Coded Allergies: acetaminophen (From Percocet) (UNKNOWN 10/19/16) ciprofloxacin (From Cipro) (UNKNOWN 10/19/16) diphenhydramine (From Benadryl) (UNKNOWN 10/19/16) loratadine (UNKNOWN 10/19/16) nitrofurantoin (UNKNOWN 10/19/16) oxycodone (From Percocet) (UNKNOWN 10/19/16) rabeprazole (From ACIPHEX) (UNKNOWN 12/12/16) risedronate sodium (From ACTONEL) (UNKNOWN 12/12/16) celecoxib (From Celebrex) (Intermediate, UPSET STOMACH 10/19/16) cimetidine (Intermediate, UPSET STOMACH 10/19/16) clarithromycin (Intermediate, UPSET STOMACH 10/19/16) codeine (Intermediate, UPSET STOMACH 10/19/16) fluconazole (Intermediate, UPSET STOMACH 10/19/16) fluoxetine (From Prozac) (Intermediate, UPSET STOMACH 10/19/16) gabapentin (Intermediate, UPSET STOMACH 10/19/16) lansoprazole (Intermediate, UPSET STOMACH 10/19/16) mycophenolate mofetil (Intermediate, UPSET STOMACH 10/19/16) oxaprozin (From Daypro) (Intermediate, UPSET STOMACH 10/19/16) lorazepam (Mild, GI DISTRESS 10/20/16) Penicillins (UPSET STOMACH 10/19/16) buspirone (UNKNOWN 12/12/16) ranitidine (UPSET STOMACH 10/19/16) Reconcile Medications Alprazolam (Xanax) 1 MG TABLET 1 TAB PO Q6P PRN anxiety Dicyclomine Hydrochloride (Bentyl) 10 MG CAPSULE 1 CAP PO TID PRN abdominal pain Fenofibrate 160 MG TABLET 1 TAB PO DAILY HLD (Reported) Fluticasone Propionate 50 MCG/ACTUATION SPRAY.SUSP 2 SPRAY NASB DAILY as per (Reported) Insulin Detemir (Levemir) 100 UNIT/ML VIAL 22 UNITS SC BID DM (Reported) Lisinopril 10 MG TABLET 1 TAB PO DAILY BP (Reported) Metformin HCl 1,000 MG TABLET 1 TAB PO BID DM (Reported) Ondansetron (Zofran Odt) 4 MG TAB.RAPDIS 1 TAB SL TID PRN nausea Sodium Chloride (Deep Sea) 0.65 % SPRAY 2 SPRAY NENA Q4 Epistaxis Triage Nurses Notes Reviewed? yes ? N Is pt currently ? No Duration: day(s): (1) Timing: multiple episodes today Prior Abdominal Problems: similar symptoms No Modifying Factors: none Associated Symptoms: abdominal pain, nausea/vomiting HPI: 61 year old female presents with from home for nausea and right sided abdominal pain. She was seen here 2 days ago for the same symptoms and had a negative workup including negative ct. states that they missed an appointment with Dr. Ruvalcaba. No fever or chills. reports that she had a bad reation to the [employer]. Last BM today. No change in orther symptoms. also reports that Dr. Mo will no longer prescribe her xanax which has her very worried. THey currently have an active script from the ER. He thinks this is also making her nervous. Past History Travel History Traveled to [place] past 21 day No Medical History Any Pertinent Medical History? 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 No Review of Systems Review of Systems Constitutional: Denies: chills, fever. EENTM: Reports: no symptoms. Respiratory: Denies: cough, short of breath. Cardiovascular: Denies: chest pain. GI: Reports: abdominal pain, diarrhea, nausea, vomiting. Genitourinary: Reports: no symptoms. Musculoskeletal: Reports: no symptoms. Skin: Reports: no symptoms. Neurological/Psychological: Reports: anxiety. Hematologic/Endocrine: Denies: bruising, bleeding. Immunologic/Allergic: Reports: no symptoms. All Other Systems: Reviewed and Negative Physical Exam Physical Exam General Appearance: well developed/nourished, alert, awake, anxious, mild distress Head: atraumatic Eyes: Bilateral: PERRL. Ears, Nose, Throat, Mouth: hearing grossly normal, moist mucous membrane Neck: normal inspection, supple, full range of motion Respiratory: normal breath sounds, chest non-tender, no respiratory distress Cardiovascular: regular rate/rhythm Peripheral Pulses: 2+ radial (R), 2+ radial (L) Gastrointestinal: normal bowel sounds, soft, tenderness (RLQ), NO REBOUND OR GUARDING Neurologic/Psych: awake, alert, normal gait, ANXIOUS Skin: intact, normal color, warm/dry Core Measures ACS in differential dx? No Severe Sepsis Present: No Septic Shock Present: No Progress Differential Diagnosis: appendicitis, bowel obstruction, diverticulitis, inflamm bowel dis, IBS, COLITIS, ANXIETY Plan of Care: Orders Procedure Date/time Status LIPASE 12/15 347 Complete LACTIC ACID 12/15 347 Complete COMPREHENSIVE METABOLIC PANEL 12/15 347 Complete CBC WITHOUT DIFFERENTIAL 12/15 347 Complete Laboratory Tests 12/14/16 0648: Lactic Acid Cancelled 12/14/16 0557: Anion Gap 15, Estimated GFR > 60, BUN/Creatinine Ratio 20.0, Glucose 169 H, Lactic Acid 1.6, Calcium 9.6, Total Bilirubin 0.7, AST 16, ALT 33, Alkaline Phosphatase 34, Total Protein 6.5, Albumin 3.8, Globulin 2.7, Albumin/Globulin Ratio 1.4, Lipase 285 12/14/16 0451: CBC w Diff NO MAN DIFF REQ, RBC 3.58 L, MCV 91.7, MCH 31.3 H, RDW 13.9, MPV 9.1, Gran % 66.9, Lymphocytes % 25.1, Monocytes % 7.0, Eosinophils % 0.7, Basophils % 0.3, Absolute Granulocytes 5.7, Absolute Lymphocytes 2.1, Absolute Monocytes 0.6, Absolute Eosinophils 0.1, Absolute Basophils 0, PUBS MCHC 34.1 6:30 AM NO SIGNIFICANT CHANGE IN LABS. XRAY NEGATIVE FOR SBO. PATIENT REQUESTING IV OUT AND TO LEAVE. NAUSEA SLIGHTLY IMPROVED. STATES HE WILL RESCHEDULE THE GI APPOINTMENT THAT THEY MISSED. STILL HAS XANAX AT HOME FROM DR ROSADO FROM THE [place]. (CHARLES MARK,PEDRO) Diagnostic Imaging: Viewed by Me: Radiology Read. Discussed w/RAD: Radiology Read. Radiology Impression: PATIENT: NILA GUZMAN PRESENT AGE: 61 PATIENT ACCOUNT NO: [id number] : 59 LOCATION: [facility] ORDERING PHYSICIAN: PEDRO SOTO MD SERVICE DATE: 12/14/16 EXAM TYPE: RAD - XRY -ABDOMEN-SINGLE VIEW EXAMINATION: XR ABDOMEN CLINICAL INDICATION: Vomiting. Abdominal pain. COMPARISON: CT scan of the abdomen and pelvis 12/12/2016. TECHNIQUE: A single AP portable view of the abdomen was obtained. The pelvis and a portion of the left hemiabdomen was excluded from the [id number]. FINDINGS: Visualized bowel gas pattern is normal. Solid organ contours are normal. Grossly no free intraperitoneal air. Soft tissues are unremarkable. Lung bases are clear. No acute osseous finding. IMPRESSION: Unremarkable limited radiograph of the abdomen. No evidence of small bowel traction. DICTATED BY: RY WRIGHT MD DATE/TIME DICTATED:12/14/16503 RAIL PROJECT ENGINEER:ARIANE DATE/TIME TRANSCRIBED:12/14/16503 CONFIDENTIAL, DO NOT COPY WITHOUT APPROPRIATE AUTHORIZATION. <Electronically signed in Other Vendor System> SIGNED BY: RY WRIGHT MD 12/14/16 0509 Initial ED EKG: none Departure Departure Time of Disposition: 626 Disposition: HOME OR SELF CARE Condition: Stable Clinical Impression Primary Impression: Abdominal pain Referrals: MATTY MARK,SEBASTIÁN TORRES MD,ASHLEY Cantu (PCP/Family) Additional Instructions: Please continue your regular medications. Follow-up with Dr. Kain Ruvalcaba in the office regarding your abdominal pain. Departure Forms: Customer Survey General Discharge Information
[2016-12-14 04:59] LABS: ABSOLUTE BASOPHIL COUNT 0 /CUMM (0.0-0.2); ABSOLUTE EOSINOPHIL COUNT 0.1 /CUMM (0.0-0.7); ABSOLUTE GRANULOCYTE CT 5.7 /CUMM (1.4-6.5); ABSOLUTE LYMPH COUNT 2.1 /CUMM (1.2-3.4); ABSOLUTE MONOCYTE COUNT 0.6 /CUMM (0.10-0.60); BASOPHIL % 0.3 % (0.0-2.0); EOSINOPHIL % 0.7 % (0-5); GRANULOCYTE % 66.9 % (42.2-75.2); HEMATOCRIT 32.8 % (37-47); MEAN CORPUSCULAR HGB 31.3 PG (27.0-31.0); MEAN CORPUSCULAR HGB CONC 34.1 G/DL (33.0-37.0); MEAN CORPUSCULAR VOLUME 91.7 FL (81.0-99.0); MEAN PLATELET VOLUME 9.1 FL (7.4-10.4); PLATELET COUNT 270 /CUMM (130-400); RBC DISTRIBUTION WIDTH 13.9 % (11.5-14.5); RED BLOOD CELL CT 3.58 /CUMM (4.20-5.40); WHITE BLOOD CELL COUNT 8.5 /CUMM (4.8-10.8)
--- NOTE | 2016-12-14 05:09 | RADIOLOGY REPORT ---
EXAMINATION: XR ABDOMEN CLINICAL INDICATION: Vomiting. Abdominal pain. COMPARISON: CT scan of the abdomen and pelvis 12/12/2016. TECHNIQUE: A single AP portable view of the abdomen was obtained. The pelvis and a portion of the left hemiabdomen was excluded from the [id number]. FINDINGS: Visualized bowel gas pattern is normal. Solid organ contours are normal. Grossly no free intraperitoneal air. Soft tissues are unremarkable. Lung bases are clear. No acute osseous finding. IMPRESSION: Unremarkable limited radiograph of the abdomen. No evidence of small bowel traction.
[2016-12-14 06:36] VITALS: BP 156/76
[2016-12-22] MEDS ORDERED: XANAX1 M1 PO ×2 (15:44→15:48)
== END 2016-12-14 06:58 ==
LOC: ERH 03:11
PROVIDERS: Emergency Medicine
DX: R10.31 Right lower quadrant pain (principal); R11.10 Vomiting, unspecified
CPT/HCPCS: 74000; 96374; J2405

== ENCOUNTER 2016-12-21 06:39 | Emergency (ER) | payer OTHER, MEDICARE ==
[~2016-12-21] VITALS: Ht 162.6 cm; Wt 72.6 kg
--- NOTE | 2016-12-21 06:56 | ED GI/GU/ABDOMINAL COMPLAINT ---
See Addendum History of Present Illness General Chief Complaint: Abdominal Pain/Flank Pain Stated Complaint: BIBA ABD PAIN Source: patient, family, old records, EMS Exam Limitations: PT IS DEAF BUT CAN READ LIPS AND COMUNICATE Vital Signs & Intake/Output Vital Signs & Intake/Output Vital Signs Date Time Temp Pulse Resp B/P B/P Pulse O2 O2 Flow FiO2 Mean Ox Delivery Rate 12/21 1002 98.5 104 20 108/67 99 Room Air 12/21 0734 98.6 12/21 0702 103 18 113/60 100 Room Air Allergies Coded Allergies: acetaminophen (From Percocet) (UNKNOWN 10/19/16) ciprofloxacin (From Cipro) (UNKNOWN 10/19/16) diphenhydramine (From Benadryl) (UNKNOWN 10/19/16) loratadine (UNKNOWN 10/19/16) nitrofurantoin (UNKNOWN 10/19/16) oxycodone (From Percocet) (UNKNOWN 10/19/16) rabeprazole (From ACIPHEX) (UNKNOWN 12/12/16) risedronate sodium (From ACTONEL) (UNKNOWN 12/12/16) celecoxib (From Celebrex) (Intermediate, UPSET STOMACH 10/19/16) cimetidine (Intermediate, UPSET STOMACH 10/19/16) clarithromycin (Intermediate, UPSET STOMACH 10/19/16) codeine (Intermediate, UPSET STOMACH 10/19/16) fluconazole (Intermediate, UPSET STOMACH 10/19/16) fluoxetine (From Prozac) (Intermediate, UPSET STOMACH 10/19/16) gabapentin (Intermediate, UPSET STOMACH 10/19/16) lansoprazole (Intermediate, UPSET STOMACH 10/19/16) mycophenolate mofetil (Intermediate, UPSET STOMACH 10/19/16) oxaprozin (From Daypro) (Intermediate, UPSET STOMACH 10/19/16) lorazepam (Mild, GI DISTRESS 10/20/16) Penicillins (UPSET STOMACH 10/19/16) buspirone (UNKNOWN 12/12/16) ranitidine (UPSET STOMACH 10/19/16) Triage Nurses Notes Reviewed? yes ? N Is pt currently ? No HPI: Patient presents with diffuse abdominal pain that started a few weeks ago. The pain is migratory. Patient states that sometimes the pain is in the right mid quiet during other times in the left mid quadrant. Patient states he only thing that helps the pain is when she takes a Xanax however she ran out of her Xanax 2 days ago. The pain is crampy in nature. There are no aggravating factors. There is no radiation of the pain. At its worse the pain is 7 out of 10. Patient does have a history of diabetes and has been in DKA in the past. (JORDIN MARK,WILLIAM Eaton) Reconcile Medications Alprazolam (Xanax) 0.25 MG TABLET 1 TAB PO BIDP PRN anxiety Alprazolam (Xanax) 1 MG TABLET 1 TAB PO Q6P PRN anxiety Dicyclomine Hydrochloride (Bentyl) 10 MG CAPSULE 1 CAP PO TID PRN abdominal pain Fenofibrate 160 MG TABLET 1 TAB PO DAILY HLD (Reported) Fluticasone Propionate 50 MCG/ACTUATION SPRAY.SUSP 2 SPRAY NASB DAILY as per (Reported) Hyoscyamine (Levsin) 0.125 MG TABLET 1-2 TAB PO Q6P PRN ABDOMINAL CRAMPS Insulin Detemir (Levemir) 100 UNIT/ML VIAL 22 UNITS SC BID DM (Reported) Lisinopril 10 MG TABLET 1 TAB PO DAILY BP (Reported) Metformin HCl 1,000 MG TABLET 1 TAB PO BID DM (Reported) Ondansetron (Zofran Odt) 4 MG TAB.RAPDIS 1 TAB SL TID PRN nausea Sodium Chloride (Deep Sea) 0.65 % SPRAY 2 SPRAY NENA Q4 Epistaxis (LI MARK,RAGHAVENDRA Chase) Past History Travel History Traveled to [place] past 21 day No Medical History Any Pertinent Medical History? 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 No (WILLIAM BRENNER MD) Review of Systems Review of Systems Constitutional: Reports: no symptoms. EENTM: Reports: no symptoms. Respiratory: Reports: no symptoms. Cardiovascular: Reports: no symptoms. GI: Reports: see HPI, abdominal pain. Genitourinary: Reports: no symptoms. Musculoskeletal: Reports: no symptoms. Skin: Reports: no symptoms. Neurological/Psychological: Reports: no symptoms. Hematologic/Endocrine: Reports: no symptoms. Immunologic/Allergic: Reports: no symptoms. All Other Systems: Reviewed and Negative (JORDIN MARK,WILLIAM Eaton) Physical Exam Physical Exam General Appearance: well developed/nourished, no apparent distress, alert, awake , moderate distress Head: atraumatic, normal appearance Eyes: Bilateral: PERRL, EOMI. Ears, Nose, Throat, Mouth: hearing grossly normal, moist mucous membrane Neck: normal inspection, supple, full range of motion Respiratory: normal breath sounds, chest non-tender, no respiratory distress, lungs clear Cardiovascular: regular rate/rhythm, normal peripheral pulses Gastrointestinal: normal bowel sounds, soft, non-tender, no organomegaly Back: normal inspection, normal range of motion Extremities: normal range of motion Neurologic/Psych: no motor/sensory deficits, awake, alert, oriented x 3, normal mood/affect Skin: intact, normal color, warm/dry Core Measures ACS in differential dx? No Severe Sepsis Present: No Septic Shock Present: No (JORDIN MARK,WILLIAM Eaton) Progress Differential Diagnosis: AMI, appendicitis, biliary colic, bowel obstruction, cholecystitis, diverticulitis, gastritis, ischemic bowel, inflamm bowel dis, pancreatitis, peptic ulcer, PUD/GERD, SBO Plan of Care: Orders Procedure Date/time Status TROPONIN LEVEL 12/21 0703 Complete EKG 12/21 0703 Active MIXED VENOUS BLOOD GAS (GEN) 12/21 06 Complete URINALYSIS 12/21 06 Complete LIPASE 12/21 06 Complete COMPREHENSIVE METABOLIC PANEL 12/21 06 Complete CBC WITHOUT DIFFERENTIAL 12/21 656 Complete AMYLASE 12/21 656 Complete ACETONE 12/21 06 Complete Laboratory Tests 12/21/16 0943: Urine Color YEL, Urine Clarity CLEAR, Urine pH 5.5, Ur Specific [place] 1.010, Urine Protein NEG, Urine Ketones TRACE H, Urine Nitrite NEG, Urine Bilirubin NEG, Urine Urobilinogen 0.2, Ur Leukocyte Esterase NEG, Ur Microscopic EXAM NOT REQUIRED, Urine Hemoglobin NEG, Urine Glucose 100 H 12/21/16 0730: Bicarbonate Actual 23, Mixed VBG pH 7.41, Mixed VBG pCO2 34 L, Mixed VBG O2 Saturation 32 L, Carboxyhemoglobin 0.4 L, O2 Concentration % RA, Phlebotomy Draw Site VENOUS LAC 12/21/16 0721: Troponin I < 0.01 12/21/16 0721: Anion Gap 17 H, Estimated GFR > 60, BUN/Creatinine Ratio 17.1, Glucose 251 H, Calcium 11.4 H, Total Bilirubin 0.8, AST 18, ALT 29, Alkaline Phosphatase 41, Total Protein 7.5, Albumin 4.8, Globulin 2.7, Albumin/Globulin Ratio 1.8, Amylase 59, Lipase 168, CBC w Diff NO MAN DIFF REQ, RBC 4.24, MCV 92.1, MCH 30.6 , RDW 13.4, MPV 9.2, Gran % 73.8, Lymphocytes % 18.7 L, Monocytes % 6.6, Eosinophils % 0.5, Basophils % 0.4, Absolute Granulocytes 6.8 H, Absolute Lymphocytes 1.7, Absolute Monocytes 0.6, Absolute Eosinophils 0, Absolute Basophils 0, PUBS MCHC 33.3, Acetone Level NEGATIVE Initial ED EKG: PENDING Hand-Off Endorsed To: LI MARK,RAGHAVENDRA Chase Endorsed Time: 0700 Pending: EKG, labs (JORDIN MARK,WILLIAM Eaton) Diagnostic Imaging: Discussed w/RAD: CT Scan. Radiology Impression: PATIENT: NILA GUZMAN PRESENT AGE: 61 PATIENT ACCOUNT NO: [id number] : 59 LOCATION: [facility] ORDERING PHYSICIAN: WILLIAM BRENNER MD SERVICE DATE: 12/21/16 EXAM TYPE: CAT - CT ABD & PELVIS W IV CONTRAST EXAMINATION: CT ABDOMEN AND PELVIS WITH CONTRAST CLINICAL INFORMATION: Abdominal pain. COMPARISON: 12/12/2016. TECHNIQUE: Contiguous axial thin section helical images of the abdomen and pelvis were performed following the administration of 95 mL of intravenous Optiray 320. The data set was reformatted in the coronal and sagittal planes and reviewed on an independent workstation. DLP: 474 mGy-cm. FINDINGS: There is scarring or atelectasis within the right lower lobe addition to mild dependent bibasilar atelectasis. There is also likely scarring within the inferior segment of the lingula. Within the lateral segment right middle lobe on image 19/776, there is a stable 2 mm nodule. The visualized lung bases are otherwise clear. The visualized portions of the heart are unremarkable. The liver is of normal size and attenuation without focal lesions nor intrahepatic biliary ductal dilation. Status post cholecystectomy. Surgical clips are identified. The spleen, pancreas , right adrenal gland are unremarkable. There is a stable 10 mm left adrenal body mass. Both kidneys are of normal size and attenuation without hydronephrosis or nephrolithiasis. Following the administration of IV contrast, prompt symmetric nephrograms are displayed. There is no abdominal free fluid. There is neither mesenteric nor retroperitoneal lymphadenopathy. Normal unopacified loops of small and large bowel are identified. There is no pelvic free fluid. The urinary bladder is unremarkable. There is neither pelvic nor inguinal lymphadenopathy. Bone windows: Neither sclerotic nor lytic bone lesions are identified. IMPRESSION: No evidence for acute abdominal or pelvic inflammatory or infectious processes. Stable scarring and/or atelectasis at the lung bases. Stable left adrenal mass. Status post cholecystectomy. DICTATED BY: ALISSON RODRIGUEZ MD DATE/TIME DICTATED:12/21/16834 TRIAL ATTORNEY:ARIANE DATE/TIME TRANSCRIBED:12/21/16834 CONFIDENTIAL, DO NOT COPY WITHOUT APPROPRIATE AUTHORIZATION. 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 12/21/2016 10:41:39 AM I have updated Lorna on her test results. Plan prescription for pain medication and Xanax (to help her relax and get to sleep). She has an appointment pending with the GI group. (LI MARK,RAGHAVENDRA Chase) Departure Departure Disposition: STILL A PATIENT Condition: Stable Clinical Impression Primary Impression: Abdominal pain, unspecified site Referrals: MELISSA MARK,ASHLEY Cantu (PCP/Family) Departure Forms: Customer Survey General Discharge Information (JORDIN MARK,WILLIAM Eaton) Departure Additional Instructions: Levsin as needed for abdominal pain. Xanax as needed for stress anxiety or sleep. Follow-up with the GI group this week. Notify your primary care doctor of this emergency department visit and treatment plan. Return if any concerns or sudden worsening. Please note that there might be incidental findings in your evaluation that are unrelated to the current emergency department visit. Please notify your primary care doctor about this emergency department visit in order to obtain and review all of the testing performed so that these incidental findings can be monitored as needed. If you had an x-ray performed, please understand that some fractures may not be seen on the initial set of x-rays. If your symptoms persist you might need a repeat set of x-rays to check for such a fracture. If you had a laceration evaluated, please understand that foreign bodies such as glass or wood may not be visible to the naked eye or on plain x-rays. If the wound becomes red, swollen, increasingly more painful or if there is any drainage from the wound, please have it reevaluated by a physician for the possibility of a retained foreign body. Thank you for choosing the [facility] for your care. It was a pleasure to serve you today. Raghavendra Barajas M.D. [facility] Prescriptions: Current Visit Scripts Alprazolam (Xanax) 1 TAB PO BIDP PRN anxiety #10 TAB Hyoscyamine (Levsin) 1-2 TAB PO Q6P PRN ABDOMINAL CRAMPS #20 TAB (LI MARK,RAGHAVENDRA Chase)
[2016-12-21 07:37] LABS: ABSOLUTE BASOPHIL COUNT 0 /CUMM (0.0-0.2); ABSOLUTE EOSINOPHIL COUNT 0 /CUMM (0.0-0.7); ABSOLUTE GRANULOCYTE CT 6.8 /CUMM (1.4-6.5); ABSOLUTE LYMPH COUNT 1.7 /CUMM (1.2-3.4); ABSOLUTE MONOCYTE COUNT 0.6 /CUMM (0.10-0.60); BASOPHIL % 0.4 % (0.0-2.0); EOSINOPHIL % 0.5 % (0-5); GRANULOCYTE % 73.8 % (42.2-75.2); MEAN CORPUSCULAR HGB 30.6 PG (27.0-31.0); MEAN CORPUSCULAR HGB CONC 33.3 G/DL (33.0-37.0); MEAN CORPUSCULAR VOLUME 92.1 FL (81.0-99.0); MEAN PLATELET VOLUME 9.2 FL (7.4-10.4); PLATELET COUNT 284 /CUMM (130-400); RBC DISTRIBUTION WIDTH 13.4 % (11.5-14.5); RED BLOOD CELL CT 4.24 /CUMM (4.20-5.40); WHITE BLOOD CELL COUNT 9.2 /CUMM (4.8-10.8)
--- NOTE | 2016-12-21 08:43 | CT SCAN REPORT ---
EXAMINATION: CT ABDOMEN AND PELVIS WITH CONTRAST CLINICAL INFORMATION: Abdominal pain. COMPARISON: 12/12/2016. TECHNIQUE: Contiguous axial thin section helical images of the abdomen and pelvis were performed following the administration of 95 mL of intravenous Optiray 320. The data set was reformatted in the coronal and sagittal planes and reviewed on an independent workstation. DLP: 474 mGy-cm. FINDINGS: There is scarring or atelectasis within the right lower lobe addition to mild dependent bibasilar atelectasis. There is also likely scarring within the inferior segment of the lingula. Within the lateral segment right middle lobe on image 19/776, there is a stable 2 mm nodule. The visualized lung bases are otherwise clear. The visualized portions of the heart are unremarkable. The liver is of normal size and attenuation without focal lesions nor intrahepatic biliary ductal dilation. Status post cholecystectomy. Surgical clips are identified. The spleen, pancreas, right adrenal gland are unremarkable. There is a stable 10 mm left adrenal body mass. Both kidneys are of normal size and attenuation without hydronephrosis or nephrolithiasis. Following the administration of IV contrast, prompt symmetric nephrograms are displayed. There is no abdominal free fluid. There is neither mesenteric nor retroperitoneal lymphadenopathy. Normal unopacified loops of small and large bowel are identified. There is no pelvic free fluid. The urinary bladder is unremarkable. There is neither pelvic nor inguinal lymphadenopathy. Bone windows: Neither sclerotic nor lytic bone lesions are identified. IMPRESSION: No evidence for acute abdominal or pelvic inflammatory or infectious processes. Stable scarring and/or atelectasis at the lung bases. Stable left adrenal mass. Status post cholecystectomy.
[2016-12-21 10:02] VITALS: BP 108/67
[2016-12-21] MEDS ORDERED: LEVSIN0.125 M1 PO (10:43)
[2016-12-21] MEDS ORDERED: XANAX0.25 M1 PO (10:43)
[2016-12-22] MEDS ORDERED: XANAX1 M1 PO ×2 (15:44→15:48)
== END 2016-12-21 10:54 ==
LOC: ERH 06:39
PROVIDERS: Emergency Medicine
DX: R10.9 Unspecified abdominal pain (principal)
CPT/HCPCS: 74177; 81003; 93005; 93010

== ENCOUNTER 2017-01-06 16:12 | Emergency (ER) | payer OTHER, MEDICARE ==
[~2017-01-06] VITALS: Ht 157.5 cm; Wt 68.0 kg
[~2017-01-06 16:12] MED LIST changes: +LEVSIN0.125 M1 PO; +XANAX0.25 M1 PO
--- NOTE | 2017-01-06 17:09 | ED GENERAL ADULT ---
History of Present Illness General Chief Complaint: General Adult Stated Complaint: ABD PAIN NO BM FOR 3 DAYS Source: patient, old records Exam Limitations: HEARING IMPAIRED, COMMUNICATIVE THROUGH AND WRITING Vital Signs & Intake/Output Vital Signs & Intake/Output Vital Signs Date Time Temp Pulse Resp B/P B/P Pulse O2 O2 Flow FiO2 Mean Ox Delivery Rate 01/06 1900 97.2 88 22 108/67 97 ED Intake and Output 01/07 0000 01/06 1200 Intake Total Output Total Balance Patient 150 lb Weight Allergies Coded Allergies: acetaminophen (From Percocet) (UNKNOWN 10/19/16) ciprofloxacin (From Cipro) (UNKNOWN 10/19/16) diphenhydramine (From Benadryl) (UNKNOWN 10/19/16) loratadine (UNKNOWN 10/19/16) nitrofurantoin (UNKNOWN 10/19/16) oxycodone (From Percocet) (UNKNOWN 10/19/16) rabeprazole (From ACIPHEX) (UNKNOWN 12/12/16) risedronate sodium (From ACTONEL) (UNKNOWN 12/12/16) celecoxib (From Celebrex) (Intermediate, UPSET STOMACH 10/19/16) cimetidine (Intermediate, UPSET STOMACH 10/19/16) clarithromycin (Intermediate, UPSET STOMACH 10/19/16) codeine (Intermediate, UPSET STOMACH 10/19/16) fluconazole (Intermediate, UPSET STOMACH 10/19/16) fluoxetine (From Prozac) (Intermediate, UPSET STOMACH 10/19/16) gabapentin (Intermediate, UPSET STOMACH 10/19/16) lansoprazole (Intermediate, UPSET STOMACH 10/19/16) mycophenolate mofetil (Intermediate, UPSET STOMACH 10/19/16) oxaprozin (From Daypro) (Intermediate, UPSET STOMACH 10/19/16) lorazepam (Mild, GI DISTRESS 10/20/16) Penicillins (UPSET STOMACH 10/19/16) buspirone (UNKNOWN 12/12/16) ranitidine (UPSET STOMACH 10/19/16) Reconcile Medications Alprazolam (Xanax) 1 MG TABLET 1 TAB PO Q6P PRN anxiety Clotrimazole/Betamethasone Dip (Clotrimazole-Betamethasone Crm) 1 %-0.05 % CREAM..G. 1 BARON TOP AD AFFECTED AREA (Reported) apply to affected area(s) Fenofibrate 160 MG TABLET 1 TAB PO DAILY HLD (Reported) Fluticasone Propionate 50 MCG/ACTUATION SPRAY.SUSP 2 SPRAY NASB DAILY as per (Reported) Insulin Detemir (Levemir) 100 UNIT/ML VIAL 22 UNITS SC BID DM (Reported) Lisinopril 10 MG TABLET 1 TAB PO DAILY BP (Reported) Metformin HCl 1,000 MG TABLET 1 TAB PO BID DM (Reported) Quetiapine Fumarate (Seroquel XR) 50 MG TAB.ER.24H 1 TAB PO QPM MENTAL HEALTH (Reported) Sodium Chloride (Deep Sea) 0.65 % SPRAY 2 SPRAY NENA Q4 Epistaxis Terconazole (Terazol 7) (Unknown Strength) CREAM.APPL (Unknown Dose) VG AD GYNO (Reported) Triage Note: PT STATES SHE IS CONSTIPATED HAS NOT HAD A BM IN 3 DAYS. PT C/O ABD PAIN Triage Nurses Notes Reviewed? yes Onset: Gradual Duration: day(s): (3) Timing: recent history Injury Environment: home Severity: moderate No Modifying Factors: none HPI: Patient is a 61-year-old female with history of hearing impairment, diabetes presenting to the emergency department with chief complaint of right-sided abdominal pain has been going on for the past several weeks. Family reports that she's been seen and evaluated here and has had multiple CAT scans, all unremarkable. No fevers or chills. No nausea or vomiting. She does report no bowel movement in 2 days. reports that she's been eating okay, drinking fluids okay. History of cholecystectomy several years ago. Denies any urinary symptoms. (TAO ALVARADO) Past History Travel History Traveled to [place] past 21 day No Medical History Any Pertinent Medical History? 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 No (TAO ALVARADO) Review of Systems Review of Systems Constitutional: Reports: no symptoms. Comments Review of systems: See HPI, All other systems negative. Constitutional, no chills fever or weight loss HEENT: No visual changes no sore throat no congestion Cardiovascular: No chest pain ,palpitation , orthopnea or ankle swelling Skin, no jaundice no rashes Respiratory: No dyspnea cough sputum or hemoptysis GI: No nausea no vomiting : No dysuria No hematuria Muscle skeletal: no back pain, no neck pain, Neurologic: No numbness no confusion Psych: No stress anxiety or depression,. Heme/endocrine: No bruising no bleeding no polyuria or polydipsia Immunology: No splenectomy or history of AIDS (TAO ALVARADO) Physical Exam Physical Exam General Appearance: well developed/nourished, no apparent distress, alert, awake , comfortable Comments: Well-developed well-nourished person in no acute distress HEENT: Pupils equally round and reactive to light and accommodation. Nose is atraumatic. Neck: NORMAL INSPECTION Back: RIGHT CVA TENDERNESS Cardiovascular: Regular rate and rhythms no murmurs rubs or gallops, normal JVP Respiratory: Chest nontender. No respiratory distress.breath sounds clear to auscultation bilaterally Abdomen: Soft, TENDER TO PALPATION ALONG RIGHT UPPER AND RIGHT LOWER QUADRANT, nondistended, no appreciable organomegaly. Normal bowel sounds. No ascites. No rebound or guarding. Extremity: No edema Neuro: Alert oriented x3 Skin: No appreciable rash on exposed skin, skin is warm and dry. Psych: Mood and affect is normal, memory and judgment is normal. Core Measures ACS in differential dx? No CVA/TIA Diagnosis: No Severe Sepsis Present: No Septic Shock Present: No (TAO ALVARADO) Progress Differential Diagnoses I considered the following diagnoses in my evaluation of the patient: Small bowel section, colitis, viral syndrome, electrolyte abnormality, muscle strain, radicular pain Plan of Care: Orders Procedure Date/time Status URINALYSIS 01/06 1739 Complete LIPASE 01/06 1720 Complete COMPREHENSIVE METABOLIC PANEL 01/06 172 Complete CBC WITHOUT DIFFERENTIAL 01/06 172 Complete AMYLASE 01/06 172 Complete Laboratory Tests 01/06/17 1750: Urine Color YEL, Urine Clarity CLEAR, Urine pH 5.5, Ur Specific [place] 1.025, Urine Protein NEG, Urine Ketones NEG, Urine Nitrite NEG, Urine Bilirubin NEG, Urine Urobilinogen 0.2, Ur Leukocyte Esterase NEG, Ur Microscopic EXAM NOT REQUIRED, Urine Hemoglobin NEG, Urine Glucose >=1000 H 01/06/17 1730: Anion Gap 15, Estimated GFR > 60, BUN/Creatinine Ratio 17.8, Glucose 379 H, Calcium 10.6 H, Total Bilirubin 0.5, AST 17, ALT 27, Alkaline Phosphatase 37, Total Protein 6.9, Albumin 4.3, Globulin 2.6, Albumin/Globulin Ratio 1.7, Amylase 52, Lipase 191, CBC w Diff NO MAN DIFF REQ, RBC 3.84 L, MCV 91.2, MCH 30.8, RDW 13.3, MPV 8.8, Gran % 66.1, Lymphocytes % 26.3, Monocytes % 5.7, Eosinophils % 1.5, Basophils % 0.4, Absolute Granulocytes 5.2, Absolute Lymphocytes 2.1, Absolute Monocytes 0.4, Absolute Eosinophils 0.1, Absolute Basophils 0, PUBS MCHC 33.8 Diagnostic Imaging: Viewed by Me: Radiology Read. Discussed w/RAD: Radiology Read. Radiology Impression: PATIENT: NILA GUZMAN PRESENT AGE: 61 PATIENT ACCOUNT NO: [id number] : 59 LOCATION: [facility] ORDERING PHYSICIAN: TAO MAYA SERVICE DATE: 01/06/17 EXAM TYPE: RAD - [id number] VIEW EXAMINATION: XR ABDOMEN CLINICAL INDICATION: Abdominal pain. No bowel movement for 2 days COMPARISON: Abdomen 12/14/2016. CT scan abdomen pelvis 12/21/2016 TECHNIQUE: AP view of the abdomen. FINDINGS: Surgical clips right upper quadrant of abdomen. Moderate volume of stool in colon. Most of the stool in the right colon from cecum through the splenic flexure. Very little stool seen in the descending colon or sigmoid. No dilated bowel loop. Nonobstructive bowel pattern. No radiopaque urinary calculus. IMPRESSION: Moderate volume of stool in colon. Nonobstructive bowel pattern. DICTATED BY: ADRIANNA LOZANO MD DATE/TIME DICTATED:01/06/171851 JIG BORE TOOL MAKER:ARIANE DATE/TIME TRANSCRIBED:01/06/171851 CONFIDENTIAL, DO NOT COPY WITHOUT APPROPRIATE AUTHORIZATION. <Electronically signed in Other Vendor System> Initial ED EKG: none Comments: Patient and family informed of all lab work results and imaging study results. X-ray does show constipation. Patient will follow up with PCP. Patient nontoxic. Asking for food. Patient is afebrile, no elevation in white blood cell count. I dO not think this patient has appendicitis. (TAO ALVARADO) Departure Departure Time of Disposition: 1905 Disposition: HOME OR SELF CARE Condition: Stable Clinical Impression Primary Impression: Flank pain Secondary Impressions: Constipation Qualifiers: Constipation type: unspecified constipation type Qualified Code: K59.00 - Constipation, unspecified Hyperglycemia Referrals: ASHLEY TORRES MD (PCP/Family) Additional Instructions: Follow-up with your primary care physician call to make an appointment. Increase fluids. Use [id number] MiraLAX to help move bowels. Return for worsening symptoms or concerns. Keep a close eye on blood glucose level as it was elevated here in the emergency department. Departure Forms: Customer Survey General Discharge Information (TAO ALVARADO) PA/DIRECTOR NURSES' REGISTRY Co-Sign Statement Statement: ED Attending supervision documentation- [] I saw and evaluated the patient. I have also reviewed all the pertinent lab results and diagnostic results. I agree with the findings and the plan of care as documented in the PA's/DIRECTOR NURSES' REGISTRY's documentation. [X] I have reviewed the ED Record and agree with the PA's/DIRECTOR NURSES' REGISTRY's documentation. [] Additions or exceptions (if any) to the PAs/DIRECTOR NURSES' REGISTRY's note and plan are summarized below: [] (CHARLES MARK,PEDRO) Critical Care Note Critical Care Note Critical Care Time: non-applicable (TAO ALVARADO)
[2017-01-06] MEDS ORDERED: SEROQUEL XR50 M1 PO (17:31)
[2017-01-06 17:39] LABS: ABSOLUTE BASOPHIL COUNT 0 /CUMM (0.0-0.2); ABSOLUTE EOSINOPHIL COUNT 0.1 /CUMM (0.0-0.7); ABSOLUTE GRANULOCYTE CT 5.2 /CUMM (1.4-6.5); ABSOLUTE LYMPH COUNT 2.1 /CUMM (1.2-3.4); ABSOLUTE MONOCYTE COUNT 0.4 /CUMM (0.10-0.60); BASOPHIL % 0.4 % (0.0-2.0); EOSINOPHIL % 1.5 % (0-5); GRANULOCYTE % 66.1 % (42.2-75.2); MEAN CORPUSCULAR HGB 30.8 PG (27.0-31.0); MEAN CORPUSCULAR HGB CONC 33.8 G/DL (33.0-37.0); MEAN CORPUSCULAR VOLUME 91.2 FL (81.0-99.0); MEAN PLATELET VOLUME 8.8 FL (7.4-10.4); PLATELET COUNT 267 /CUMM (130-400); RBC DISTRIBUTION WIDTH 13.3 % (11.5-14.5); RED BLOOD CELL CT 3.84 /CUMM (4.20-5.40); WHITE BLOOD CELL COUNT 7.8 /CUMM (4.8-10.8)
[2017-01-06] MEDS ORDERED: CLOTRIMAZOLE-BE15 GM TOP (17:45)
[2017-01-06] MEDS ORDERED: TERAZOL 745 GM VG (17:45)
--- NOTE | 2017-01-06 18:58 | RADIOLOGY REPORT ---
EXAMINATION: XR ABDOMEN CLINICAL INDICATION: Abdominal pain. No bowel movement for 2 days COMPARISON: Abdomen 12/14/2016. CT scan abdomen pelvis 12/21/2016 TECHNIQUE: AP view of the abdomen. FINDINGS: Surgical clips right upper quadrant of abdomen. Moderate volume of stool in colon. Most of the stool in the right colon from cecum through the splenic flexure. Very little stool seen in the descending colon or sigmoid. No dilated bowel loop. Nonobstructive bowel pattern. No radiopaque urinary calculus. IMPRESSION: Moderate volume of stool in colon. Nonobstructive bowel pattern.
[2017-01-06 19:00] VITALS: BP 108/67
== END 2017-01-06 19:50 ==
LOC: ERH 16:12
PROVIDERS: Physician Assistant
DX: K59.00 Constipation, unspecified (principal)
CPT/HCPCS: 74000; 81003; 96372; J1815

== ENCOUNTER 2017-01-07 10:04 | Emergency (ER) | payer OTHER, MEDICARE ==
[~2017-01-07] VITALS: Ht 157.5 cm; Wt 68.0 kg
[~2017-01-07 10:04] MED LIST changes: +CLOTRIMAZOLE-BE15 GM TOP; +SEROQUEL XR50 M1 PO; +TERAZOL 745 GM VG
--- NOTE | 2017-01-07 11:44 | ED GI/GU/ABDOMINAL COMPLAINT ---
History of Present Illness General Chief Complaint: General Adult Stated Complaint: CONSTIPATION Source: patient, family, old records Exam Limitations: clinical condition Vital Signs & Intake/Output Vital Signs & Intake/Output Vital Signs Date Time Temp Pulse Resp B/P B/P Pulse O2 O2 Flow FiO2 Mean Ox Delivery Rate 01/07 1009 97.2 111 18 109/77 97 Room Air Allergies Coded Allergies: acetaminophen (From Percocet) (UNKNOWN 10/19/16) ciprofloxacin (From Cipro) (UNKNOWN 10/19/16) diphenhydramine (From Benadryl) (UNKNOWN 10/19/16) loratadine (UNKNOWN 10/19/16) nitrofurantoin (UNKNOWN 10/19/16) oxycodone (From Percocet) (UNKNOWN 10/19/16) rabeprazole (From ACIPHEX) (UNKNOWN 12/12/16) risedronate sodium (From ACTONEL) (UNKNOWN 12/12/16) celecoxib (From Celebrex) (Intermediate, UPSET STOMACH 10/19/16) cimetidine (Intermediate, UPSET STOMACH 10/19/16) clarithromycin (Intermediate, UPSET STOMACH 10/19/16) codeine (Intermediate, UPSET STOMACH 10/19/16) fluconazole (Intermediate, UPSET STOMACH 10/19/16) fluoxetine (From Prozac) (Intermediate, UPSET STOMACH 10/19/16) gabapentin (Intermediate, UPSET STOMACH 10/19/16) lansoprazole (Intermediate, UPSET STOMACH 10/19/16) mycophenolate mofetil (Intermediate, UPSET STOMACH 10/19/16) oxaprozin (From Daypro) (Intermediate, UPSET STOMACH 10/19/16) lorazepam (Mild, GI DISTRESS 10/20/16) Penicillins (UPSET STOMACH 10/19/16) buspirone (UNKNOWN 12/12/16) ranitidine (UPSET STOMACH 10/19/16) Reconcile Medications Alprazolam (Xanax) 1 MG TABLET 1 TAB PO Q6P PRN anxiety Clotrimazole/Betamethasone Dip (Clotrimazole-Betamethasone Crm) 1 %-0.05 % CREAM..G. 1 BARON TOP AD AFFECTED AREA (Reported) apply to affected area(s) Fenofibrate 160 MG TABLET 1 TAB PO DAILY HLD (Reported) Fluticasone Propionate 50 MCG/ACTUATION SPRAY.SUSP 2 SPRAY NASB DAILY as per (Reported) Insulin Detemir (Levemir) 100 UNIT/ML VIAL 22 UNITS SC BID DM (Reported) Lisinopril 10 MG TABLET 1 TAB PO DAILY BP (Reported) Metformin HCl 1,000 MG TABLET 1 TAB PO BID DM (Reported) Quetiapine Fumarate (Seroquel XR) 50 MG TAB.ER.24H 1 TAB PO QPM MENTAL HEALTH (Reported) Sodium Chloride (Deep Sea) 0.65 % SPRAY 2 SPRAY NENA Q4 Epistaxis Terconazole (Terazol 7) (Unknown Strength) CREAM.APPL (Unknown Dose) VG AD GYNO (Reported) Triage Note: 61 Y/O FEMALE C/O CONSTIPATION SINCE ThursdayDecember. WAS EVAL'D IN ED LAST EVENING FOR SAME. STATES HE THINKS PT NEEDS AN ENEMA TO "FLUSH OUT SYSTEM". PT REPORTS INTERMITTENT PAIN. DENIES AT PRESENT. Triage Nurses Notes Reviewed? yes LMP (ages 10-50): post menopausal ? n Is pt currently ? No Onset: 3-4 days Duration: day(s):, constant, continues in ED, getting worse Timing: recent history Quality/Severity: aching, fullness, moderate Location: generalized abdomen Radiation: no radiation Activities at Onset: none Prior Abdominal Problems: similar symptoms Past Sexual History: Unobtainable at this time Modifying Factors: Worsens With: eating. Associated Symptoms: abdominal pain HPI: 3-4 days prior to admission patient last moved her bowels. She was seen yesterday and prescribed MiraLAX. She presents today still not having moved her bowels complaining of generalized mild to moderate abdominal discomfort nonradiating worse after eating. She denies fever chills nausea vomiting diarrhea chest pain cough shortness of breath headache dysuria rash bleeding. Past History Travel History Traveled to [place] past 21 day No Medical History Any Pertinent Medical History? 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 No Review of Systems Review of Systems Constitutional: Reports: no symptoms. EENTM: Reports: no symptoms. Respiratory: Reports: no symptoms. Cardiovascular: Reports: no symptoms. GI: Reports: see HPI, abdominal pain, constipation. Genitourinary: Reports: no symptoms. Musculoskeletal: Reports: no symptoms. Skin: Reports: no symptoms. Neurological/Psychological: Reports: no symptoms. Hematologic/Endocrine: Reports: no symptoms. Immunologic/Allergic: Reports: no symptoms. All Other Systems: Reviewed and Negative Physical Exam Physical Exam General Appearance: well developed/nourished, alert, awake, anxious, mild distress, obese Head: atraumatic, normal appearance Eyes: Bilateral: normal appearance, PERRL, EOMI, normal inspection. Ears, Nose, Throat, Mouth: hearing grossly normal, moist mucous membrane Neck: normal inspection, supple, full range of motion, normal alignment Respiratory: normal breath sounds, chest non-tender, no respiratory distress, quiet respiration, lungs clear Cardiovascular: regular rate/rhythm, normal peripheral pulses, norml femoral pulses equa Peripheral Pulses: 4+ carotid (R), 4+ carotid (L) Gastrointestinal: normal bowel sounds, soft, non-tender, no organomegaly Back: normal inspection, normal range of motion Extremities: normal range of motion, no ligament instability Neurologic/Psych: no motor/sensory deficits, awake, alert, oriented x 3, 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 No Severe Sepsis Present: No Septic Shock Present: No Progress Differential Diagnosis: bowel obstruction Plan of Care: Orders Procedure Date/time Status Enema 01/07 112 Active Initial ED EKG: none Departure Departure Time of Disposition: 1452 Disposition: HOME OR SELF CARE Condition: Stable Clinical Impression Primary Impression: Constipation Qualifiers: Constipation type: unspecified constipation type Qualified Code: K59.00 - Constipation, unspecified Referrals: ASHLEY TORRES MD (PCP/Family) Departure Forms: Customer Survey General Discharge Information
[2017-01-07 16:20] VITALS: BP 114/71
== END 2017-01-07 16:31 ==
LOC: ERH 10:04
DX: K59.00 Constipation, unspecified (principal)

== ENCOUNTER 2017-01-12 04:21 | Emergency (ER) | payer OTHER, MEDICARE ==
--- NOTE | 2017-01-12 05:02 | ED GI/GU/ABDOMINAL COMPLAINT ---
See Addendum History of Present Illness General Chief Complaint: Abdominal Pain/Flank Pain Stated Complaint: ABD PAIN Source: patient Exam Limitations: no limitations Vital Signs & Intake/Output Vital Signs & Intake/Output Vital Signs Date Time Temp Pulse Resp B/P B/P Pulse O2 O2 Flow FiO2 Mean Ox Delivery Rate 01/12 0755 98.6 76 18 126/85 98 Room Air 01/12 0616 96.1 123 18 113/72 99 Room Air Allergies Coded Allergies: acetaminophen (From Percocet) (UNKNOWN 01/12/17) ciprofloxacin (From Cipro) (UNKNOWN 01/12/17) diphenhydramine (From Benadryl) (UNKNOWN 01/12/17) loratadine (UNKNOWN 01/12/17) nitrofurantoin (UNKNOWN 01/12/17) oxycodone (From Percocet) (UNKNOWN 01/12/17) rabeprazole (From ACIPHEX) (UNKNOWN 01/12/17) risedronate sodium (From ACTONEL) (UNKNOWN 01/12/17) celecoxib (From Celebrex) (Intermediate, UPSET STOMACH 01/12/17) cimetidine (Intermediate, UPSET STOMACH 01/12/17) clarithromycin (Intermediate, UPSET STOMACH 01/12/17) codeine (Intermediate, UPSET STOMACH 01/12/17) fluconazole (Intermediate, UPSET STOMACH 01/12/17) fluoxetine (From Prozac) (Intermediate, UPSET STOMACH 01/12/17) gabapentin (Intermediate, UPSET STOMACH 01/12/17) lansoprazole (Intermediate, UPSET STOMACH 01/12/17) mycophenolate mofetil (Intermediate, UPSET STOMACH 01/12/17) oxaprozin (From Daypro) (Intermediate, UPSET STOMACH 01/12/17) lorazepam (Mild, GI DISTRESS 01/12/17) Penicillins (UPSET STOMACH 01/12/17) buspirone (UNKNOWN 01/12/17) ranitidine (UPSET STOMACH 01/12/17) Reconcile Medications Alprazolam (Xanax) 1 MG TABLET 1 TAB PO Q6P PRN anxiety Clotrimazole/Betamethasone Dip (Clotrimazole-Betamethasone Crm) 1 %-0.05 % CREAM..G. 1 BARON TOP AD AFFECTED AREA (Reported) apply to affected area(s) Fenofibrate 160 MG TABLET 1 TAB PO DAILY HLD (Reported) Fluticasone Propionate 50 MCG/ACTUATION SPRAY.SUSP 2 SPRAY NASB DAILY as per (Reported) Insulin Detemir (Levemir) 100 UNIT/ML VIAL 22 UNITS SC BID DM (Reported) Lisinopril 10 MG TABLET 1 TAB PO DAILY BP (Reported) Metformin HCl 1,000 MG TABLET 1 TAB PO BID DM (Reported) Quetiapine Fumarate (Seroquel XR) 50 MG TAB.ER.24H 1 TAB PO QPM MENTAL HEALTH (Reported) Sodium Chloride (Deep Sea) 0.65 % SPRAY 2 SPRAY NENA Q4 Epistaxis Terconazole (Terazol 7) (Unknown Strength) CREAM.APPL (Unknown Dose) VG AD GYNO (Reported) Triage Nurses Notes Reviewed? yes ? n Is pt currently ? No Onset: Gradual Duration: day(s): Timing: recent history Quality/Severity: cramping, sharpness Location: epigastric, generalized abdomen, right lower quadrant Radiation: no radiation Activities at Onset: none Prior Abdominal Problems: none Modifying Factors: Worsens With: palpation. Associated Symptoms: abdominal pain, nausea/vomiting HPI: 61-year-old woman, History of congenital deafness, diabetes, status post cholecystectomy many years ago, presents with diffuse abdominal pain that began within the last 24 hours. Translating via nurse who is fluent in sign language, the patient states that she has abdominal pain in the middle and right lower quadrants of her abdomen. She has nausea, but no fever, chills, dysuria, vomiting. Upon arrival, it was noted by nursing staff that she had several cockroaches infesting her close. She was placed immediately in quarantine room. She received a shower and her close her placed in a plastic bag. (ANIYA MARK,RICA Augustine) Past History Travel History Traveled to [place] past 21 day No Medical History Any Pertinent Medical History? 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 No (ANIYA MARK,RICA Augustine) Review of Systems Review of Systems Constitutional: Reports: no symptoms. EENTM: Reports: no symptoms. Respiratory: Reports: no symptoms. Cardiovascular: Reports: no symptoms. GI: Reports: no symptoms. Genitourinary: Reports: no symptoms. Musculoskeletal: Reports: no symptoms. Skin: Reports: no symptoms. Neurological/Psychological: Reports: no symptoms. Hematologic/Endocrine: Reports: no symptoms. Immunologic/Allergic: Reports: no symptoms. All Other Systems: Reviewed and Negative (ANIYA MARK,RICA Augustine) Physical Exam Physical Exam General Appearance: well developed/nourished, mild distress Head: atraumatic, normal appearance Eyes: Bilateral: normal appearance. Ears, Nose, Throat, Mouth: hearing grossly normal Neck: normal inspection, supple, full range of motion, normal alignment Respiratory: normal breath sounds, chest non-tender, no respiratory distress, quiet respiration, lungs clear Cardiovascular: regular rate/rhythm Gastrointestinal: normal bowel sounds, soft, midepigastric tenderness and right lower quadrant tenderness. No rebound no guarding. Back: normal inspection, normal range of motion Extremities: normal range of motion Neurologic/Psych: no motor/sensory deficits, awake, alert, oriented x 3 Skin: intact, normal color, warm/dry Core Measures ACS in differential dx? No Severe Sepsis Present: No Septic Shock Present: No (ANIYA MARK,RICA Augustine) Progress Differential Diagnosis: appendicitis, biliary colic, cholecystitis, gastritis Plan of Care: Orders Procedure Date/time Status CASE MANAGEMENT CONSULT 01/12 0705 Active ACETONE 01/12 0641 Complete MIXED VENOUS BLOOD GAS (GEN) 01/12 0602 Active URINALYSIS 01/12 0511 Complete TROPONIN LEVEL 01/12 0502 Complete LIPASE 01/12 0502 Complete COMPREHENSIVE METABOLIC PANEL 01/12 0502 Complete CBC WITHOUT DIFFERENTIAL 01/12 0502 Complete AMYLASE 01/12 0502 Complete EKG 01/12 0502 Active Current Medications Sig/Herman Start time Last Medication Dose Stop Time Status Admin Sodium Chloride 1,000 ML BOLUS ONE 01/12 0845 AC (Normal Saline 0.9%) 01/12 0944 Sodium Chloride 1,000 ML BOLUS ONE 01/12 0830 AC 01/12 (Normal Saline 0.9%) 01/12 0929 0849 Hydromorphone HCl 1 MG ONCE ONE 01/12 515 CAN (Dilaudid) 01/13 516 Ondansetron HCl 4 MG ONCE ONE 01/12 515 CAN (Zofran) 01/13 516 Sodium Chloride 1,000 ML BOLUS ONE 01/12 515 CAN (Normal Saline 0.9%) 01/12 614 Sodium Chloride 1,000 ML BOLUS ONE 01/12 515 CAN (Normal Saline 0.9%) 01/12 06 Laboratory Tests 01/12/17 0641: Anion Gap 17 H, Estimated GFR > 60, BUN/Creatinine Ratio 17.8, Glucose 297 H, Calcium 10.5 H, Total Bilirubin 0.7, AST 17, ALT 26, Alkaline Phosphatase 39, Troponin I < 0.01, Total Protein 7.5, Albumin 4.6, Globulin 2.9, Albumin/ Globulin Ratio 1.6, Amylase 51, Lipase 120, CBC w Diff NO MAN DIFF REQ, RBC 4.19 L, MCV 91.7, MCH 30.9, RDW 13.8, MPV 8.9, Gran % 63.7, Lymphocytes % 28.8, Monocytes % 5.6, Eosinophils % 1.5, Basophils % 0.4, Absolute Granulocytes 5.7, Absolute Lymphocytes 2.6, Absolute Monocytes 0.5, Absolute Eosinophils 0.1, Absolute Basophils 0, PUBS MCHC 33.7, Acetone Level NEGATIVE 01/12/17 0601: Acetone Level Cancelled 01/12/17 0550: Urine Color YEL, Urine Clarity CLEAR, Urine pH 5.5, Ur Specific Dexter 1.025, Urine Protein NEG, Urine Ketones TRACE H, Urine Nitrite NEG, Urine Bilirubin NEG, Urine Urobilinogen 0.2, Ur Leukocyte Esterase NEG, Ur Microscopic EXAM NOT REQUIRED, Urine Hemoglobin NEG, Urine Glucose 500 H Diagnostic Imaging: Viewed by Me: CT Scan. Discussed w/RAD: CT Scan. Initial ED EKG: normal axis, normal intervals, normal p-waves, normal QRS complex, normal sinus rhythm Hand-Off Endorsed To: ANTELMO CROSS DO Endorsed Time: 0700 Pending: CT, labs (ANIYA MARK,RICA Augustine) Departure Departure Disposition: STILL A PATIENT Condition: Stable Clinical Impression Primary Impression: Abdominal pain Referrals: MELISSA MARK,ASHLEY Cantu (PCP/Family) Departure Forms: Customer Survey General Discharge Information Comments 01/12/17, 6:45am.... upon re-evaluation, pt with mild rlq and mid epigastric tenderness. no RUQ tenderness. she adamantly declines an iv... will give gi cocktail, check labs, ct scan. pt signed out to dr. cross at 7am. (ANIYA MARK,RICA Augustine) Departure Comments 01/12/17 8:50 AM The patient was signed out to me by Dr. Schilling at 7 AM. She has no abdominal pain at this time however her labs showed elevated blood glucose and a minimal anion gap. She was therefore treated with 1 L of IV fluid. Her metformin and insulin were given. I will repeat repeat her chemistry and reevaluate her. (TAY HAMM,ANTELMO Kerr)
[2017-01-12 06:50] LABS: ABSOLUTE BASOPHIL COUNT 0 /CUMM (0.0-0.2); ABSOLUTE EOSINOPHIL COUNT 0.1 /CUMM (0.0-0.7); ABSOLUTE GRANULOCYTE CT 5.7 /CUMM (1.4-6.5); ABSOLUTE LYMPH COUNT 2.6 /CUMM (1.2-3.4); ABSOLUTE MONOCYTE COUNT 0.5 /CUMM (0.10-0.60); BASOPHIL % 0.4 % (0.0-2.0); EOSINOPHIL % 1.5 % (0-5); GRANULOCYTE % 63.7 % (42.2-75.2); HEMATOCRIT 38.4 % (37-47); MEAN CORPUSCULAR HGB 30.9 PG (27.0-31.0); MEAN CORPUSCULAR HGB CONC 33.7 G/DL (33.0-37.0); MEAN CORPUSCULAR VOLUME 91.7 FL (81.0-99.0); MEAN PLATELET VOLUME 8.9 FL (7.4-10.4); PLATELET COUNT 277 /CUMM (130-400); RBC DISTRIBUTION WIDTH 13.8 % (11.5-14.5); RED BLOOD CELL CT 4.19 /CUMM (4.20-5.40); WHITE BLOOD CELL COUNT 8.9 /CUMM (4.8-10.8)
--- NOTE | 2017-01-12 07:56 | CT SCAN REPORT ---
EXAMINATION: CT ABDOMEN AND PELVIS WITHOUT CONTRAST CLINICAL INFORMATION: Right lower quadrant and mid epigastric abdominal pain. COMPARISON: 12/21/2016 and multiple additional prior studies. TECHNIQUE: Multidetector volumetric imaging was performed from the superior aspect of the liver through the pubic symphysis. Sagittal and coronal reformatted images were obtained on the technologist's workstation. DLP: 270.68 mGy-cm FINDINGS: LUNG BASES: Multiple scattered lung nodules involving the partially imaged lung bases, better detailed on the recent dedicated chest CT of 11/26/2016. LIVER, GALLBLADDER, AND BILIARY TREE: The liver is normal in size, shape, and attenuation. No focal hepatic lesion or biliary ductal dilatation is present. The gallbladder is unremarkable with no evidence of radiopaque gallstones, gallbladder wall thickening, or obvious pericholecystic inflammatory changes. PANCREAS: Unremarkable. SPLEEN: Unremarkable. ADRENAL GLANDS: Stable 1.1 cm left adrenal nodule, unchanged for over 2 years. KIDNEYS AND URETERS: Punctate nonobstructing calculus within the lower pole calyx of the left kidney. No evidence of hydronephrosis. Mild symmetric bilateral perinephric stranding, unchanged. BLADDER: Underdistended and poorly evaluated. GASTROINTESTINAL TRACT: The small and large bowel are unremarkable. The appendix is unremarkable. ABDOMINAL WALL: No significant hernia is appreciated. LYMPH NODES: Normal. VASCULAR: Minimal atherosclerosis of the abdominal aorta without evidence of aneurysm. PELVIC VISCERA: Unremarkable. OSSEOUS STRUCTURES: Unremarkable. IMPRESSION: 1. No evidence of acute abdominal or pelvic abnormality. 2. Multiple stable scattered lung nodules better described on a dedicated chest CT performed recently on 11/26/2016. 3. Stable left adrenal nodule. 4. Punctate nonobstructing left renal calculus. 5. Cholecystectomy.
[2017-01-12 11:04] VITALS: BP 118/68
== END 2017-01-12 11:17 ==
LOC: ERH 04:21
PROVIDERS: Pediatrics
DX: R10.84 Generalized abdominal pain (principal); E11.9 Type 2 diabetes mellitus without complications
CPT/HCPCS: 74176; 81003; 93005; 93010; 96372

== ENCOUNTER 2017-01-25 | Emergency (ER) | payer OTHER, MEDICARE ==
[~2017-01-25] VITALS: Ht 157.5 cm; Wt 65.3 kg
--- NOTE | 2017-01-25 04:29 | ED GI/GU/ABDOMINAL COMPLAINT ---
History of Present Illness General Chief Complaint: Nausea, Vomiting, Diarrhea Stated Complaint: "PER VOMITED 3TIMES" Source: patient Exam Limitations: no limitations Vital Signs & Intake/Output Vital Signs & Intake/Output Vital Signs Date Time Temp Pulse Resp B/P B/P Pulse O2 O2 Flow FiO2 Mean Ox Delivery Rate 01/25 0514 97.0 87 18 115/76 95 Room Air 01/25 0439 Room Air 01/25 0046 97.0 94 18 112/74 94 Room Air Allergies Coded Allergies: acetaminophen (From Percocet) (UNKNOWN 01/12/17) ciprofloxacin (From Cipro) (UNKNOWN 01/12/17) diphenhydramine (From Benadryl) (UNKNOWN 01/12/17) loratadine (UNKNOWN 01/12/17) nitrofurantoin (UNKNOWN 01/12/17) oxycodone (From Percocet) (UNKNOWN 01/12/17) rabeprazole (From ACIPHEX) (UNKNOWN 01/12/17) risedronate sodium (From ACTONEL) (UNKNOWN 01/12/17) celecoxib (From Celebrex) (Intermediate, UPSET STOMACH 01/12/17) cimetidine (Intermediate, UPSET STOMACH 01/12/17) clarithromycin (Intermediate, UPSET STOMACH 01/12/17) codeine (Intermediate, UPSET STOMACH 01/12/17) fluconazole (Intermediate, UPSET STOMACH 01/12/17) fluoxetine (From Prozac) (Intermediate, UPSET STOMACH 01/12/17) gabapentin (Intermediate, UPSET STOMACH 01/12/17) lansoprazole (Intermediate, UPSET STOMACH 01/12/17) mycophenolate mofetil (Intermediate, UPSET STOMACH 01/12/17) oxaprozin (From Daypro) (Intermediate, UPSET STOMACH 01/12/17) lorazepam (Mild, GI DISTRESS 01/12/17) Penicillins (UPSET STOMACH 01/12/17) buspirone (UNKNOWN 01/12/17) ranitidine (UPSET STOMACH 01/12/17) Reconcile Medications Alprazolam (Xanax) 1 MG TABLET 1 TAB PO Q6P PRN anxiety Clotrimazole/Betamethasone Dip (Clotrimazole-Betamethasone Crm) 1 %-0.05 % CREAM..G. 1 BARON TOP AD AFFECTED AREA (Reported) apply to affected area(s) Fenofibrate 160 MG TABLET 1 TAB PO DAILY HLD (Reported) Fluticasone Propionate 50 MCG/ACTUATION SPRAY.SUSP 2 SPRAY NASB DAILY as per (Reported) Insulin Detemir (Levemir) 100 UNIT/ML VIAL 22 UNITS SC BID DM (Reported) Lisinopril 10 MG TABLET 1 TAB PO DAILY BP (Reported) Metformin HCl 1,000 MG TABLET 1 TAB PO BID DM (Reported) Ondansetron (Zofran Odt) 4 MG TAB.RAPDIS 1 TAB SL TID PRN nausea Quetiapine Fumarate (Seroquel XR) 50 MG TAB.ER.24H 1 TAB PO QPM MENTAL HEALTH (Reported) Sodium Chloride (Deep Sea) 0.65 % SPRAY 2 SPRAY NENA Q4 Epistaxis Terconazole (Terazol 7) (Unknown Strength) CREAM.APPL (Unknown Dose) VG AD GYNO (Reported) Triage Note: TRIAGE: PT TO ER WITH C/C VOMITING X 3 SINCE THIS AFTERNOON. HAS HAD INCREASED BOWEL MOVEMENTS IN LAST COUPLE DAYS AND LAST BOWEL MOVEMENT WHILE IN ER WAITING ROOM HAD SOME BLOOD IN IT. DENIES ANY BLOOD CLOTS. PT AND BOTH DEAF. PATIENT NONVERBAL AT TRIAGE, ANSWERS ALL QUESTIONS. Triage Nurses Notes Reviewed? yes ? n Is pt currently ? No Onset: Gradual Duration: week(s):, waxing and waning Timing: recent history Quality/Severity: cramping Location: generalized abdomen Radiation: no radiation Activities at Onset: none Prior Abdominal Problems: similar symptoms Modifying Factors: Worsens With: vomiting. Associated Symptoms: nausea/vomiting HPI: 61 yo woman presents with 3 episodes of vomiting today. She notes that she has had intermittent abdominal discomfort for the past several weeks. She presents after 3 episodes of vomiting. She has had decreased stooling. "I have to push real hard... And there was blood around my stool..." She notes mild nausea, no check pain, shortness of breath, fever, chills, dysuria. She is otherwise well. Past History Travel History Traveled to [place] past 21 day No Medical History Any Pertinent Medical History? see below for history Neurological: deafness EENT: CONGENITAL DEAFNESS Cardiovascular: TRIGLYCERIDEMIA Respiratory: NONE Gastrointestinal: GERD, chronic abdominal pain Hepatic: s/p cholecystectomy Renal: NONE Musculoskeletal: NONE Psychiatric: anxiety, depression Endocrine: diabetes Blood Disorders: NONE Cancer(s): breast cancer History of MRSA: No History of VRE: No History of CDIFF: No Surgical History Surgical History: cholecystectomy Psychosocial History Who do you live with Spouse Services at Home HOME PHONE-VIDEO PHONE [phone] [employer] What is your primary language Lithuanian Tobacco Use: Never used Family History Hx Contributory? No Review of Systems Review of Systems Constitutional: Reports: no symptoms. EENTM: Reports: no symptoms. Respiratory: Reports: no symptoms. Cardiovascular: Reports: no symptoms. GI: Reports: no symptoms. Genitourinary: Reports: no symptoms. Musculoskeletal: Reports: no symptoms. Skin: Reports: no symptoms. Neurological/Psychological: Reports: no symptoms. Hematologic/Endocrine: Reports: no symptoms. Immunologic/Allergic: Reports: no symptoms. All Other Systems: Reviewed and Negative Physical Exam Physical Exam General Appearance: well developed/nourished, mild distress Head: atraumatic, normal appearance Eyes: Bilateral: normal appearance. Ears, Nose, Throat, Mouth: hearing grossly normal Neck: normal inspection, supple, full range of motion, normal alignment Respiratory: normal breath sounds, chest non-tender, no respiratory distress, quiet respiration, lungs clear Cardiovascular: regular rate/rhythm Gastrointestinal: normal bowel sounds, soft, non-tender, no organomegaly Rectal: brown stool, trace guiac positive Back: normal inspection Extremities: normal range of motion Neurologic/Psych: no motor/sensory deficits, awake, alert, oriented x 3 Skin: intact, normal color, warm/dry Core Measures ACS in differential dx? No Severe Sepsis Present: No Septic Shock Present: No Progress Differential Diagnosis: gastritis vs reflux vs viral syndrome vs constipation vs other. Plan of Care: Orders Procedure Date/time Status EKG 01/25 001 Active Laboratory Tests 01/25/17 0011: Troponin I Cancelled, CBC w Diff Cancelled, WBC Cancelled, RBC Cancelled, Hgb Cancelled, Hct Cancelled, MCV Cancelled, MCH Cancelled, RDW Cancelled, Plt Count Cancelled, MPV Cancelled, PUBS MCHC Cancelled Diagnostic Imaging: Viewed by Me: CT Scan. Discussed w/RAD: CT Scan. Radiology Impression: ABD/PELVIC CT... NO ACUTE ABNORMALITY (01/12/17) Initial ED EKG: normal axis, normal intervals, normal p-waves, normal QRS complex, normal sinus rhythm Comments: PATIENT: NILA GUZMAN PRESENT AGE: 61 PATIENT ACCOUNT NO: [id number] : 59 LOCATION: [facility] ORDERING PHYSICIAN: RICA KWAN MD SERVICE DATE: 01/12/17 EXAM TYPE: CAT - CT ABD & PELVIS W/O IV CONTRAS EXAMINATION: CT ABDOMEN AND PELVIS WITHOUT CONTRAST CLINICAL INFORMATION: Right lower quadrant and mid epigastric abdominal pain. COMPARISON: 12/21/2016 and multiple additional prior studies. TECHNIQUE: Multidetector volumetric imaging was performed from the superior aspect of the liver through the pubic symphysis. Sagittal and coronal reformatted images were obtained on the technologist's workstation. DLP: 270.68 mGy-cm FINDINGS: LUNG BASES: Multiple scattered lung nodules involving the partially imaged lung bases, better detailed on the recent dedicated chest CT of 11/26/2016. LIVER, GALLBLADDER, AND BILIARY TREE: The liver is normal in size, shape, and attenuation. No focal hepatic lesion or biliary ductal dilatation is present. The gallbladder is unremarkable with no evidence of radiopaque gallstones, gallbladder wall thickening, or obvious pericholecystic inflammatory changes. PANCREAS: Unremarkable. SPLEEN: Unremarkable. ADRENAL GLANDS: Stable 1.1 cm left adrenal nodule, unchanged for over 2 years. KIDNEYS AND URETERS: Punctate nonobstructing calculus within the lower pole calyx of the left kidney. No evidence of hydronephrosis. Mild symmetric bilateral perinephric stranding, unchanged. BLADDER: Underdistended and poorly evaluated. GASTROINTESTINAL TRACT: The small and large bowel are unremarkable. The appendix is unremarkable. ABDOMINAL WALL: No significant hernia is appreciated. LYMPH NODES: Normal. VASCULAR: Minimal atherosclerosis of the abdominal aorta without evidence of aneurysm. PELVIC VISCERA: Unremarkable. OSSEOUS STRUCTURES: Unremarkable. IMPRESSION: 1. No evidence of acute abdominal or pelvic abnormality. 2. Multiple stable scattered lung nodules better described on a dedicated chest CT performed recently on 11/26/2016. 3. Stable left adrenal nodule. 4. Punctate nonobstructing left renal calculus. 5. Cholecystectomy. DICTATED BY: ERIN MAE MD DATE/TIME DICTATED:01/12/17713 WIENER PACKER:ARIANE DATE/TIME TRANSCRIBED:01/12/17713 CONFIDENTIAL, DO NOT COPY WITHOUT APPROPRIATE AUTHORIZATION. <Electronically signed in Other Vendor System> SIGNED BY: ERIN MAE MD 01/12/17 0756 Departure Departure Disposition: HOME OR SELF CARE Condition: Stable Clinical Impression Primary Impression: Nausea and vomiting Referrals: MELISSA MARK,ASHLEY Cantu (PCP/Family) Departure Forms: Customer Survey General Discharge Information Prescriptions: Current Visit Scripts Ondansetron (Zofran Odt) 1 TAB SL TID PRN nausea #20 TAB Ref 1 Comments Pt is deaf... communicated with patient through writing out sentences and lip reading with . 01/25/17, 5:14am...pt declines blood draw. feels better after zofran and xanax.... 01/25/17, 5:33am... pt feeling better... tolerated po challenge... pt wishes to go home and declines blood draw... pt encouraged to return if symptoms recur.
[2017-01-25 05:14] VITALS: BP 115/76
[2017-01-25] MEDS ORDERED: ZOFRAN ODT4 M1 SL (05:32)
== END 2017-01-25 06:01 ==
LOC: ERH
DX: R11.2 Nausea with vomiting, unspecified (principal); R10.84 Generalized abdominal pain
CPT/HCPCS: 93005; 93010; J3101